=== PATIENT | male | born 1935 | race Caucasian/White ===

== ENCOUNTER → 2016-05-08 | Outpatient (CLI) | payer MEDICARE, OTHER ==
[~2016-05-08] MED LIST: ASPI325T47 OR; FENO160T8 PO; IOHEXOL 350 MG/ML 100ML IJ ONE; MULT-13 OR; MULTCAP7 OR
[2016-05-08 11:00] VITALS: BP 159/84
[2016-05-08 12:10] VITALS: BP 157/91
== END | disposition home or self-care (01) ==
LOC: Rad HDHVI 10:43
PROVIDERS: ATTEND Internal Medicine Cardiovascular Disease
DX: M79.604 Pain in right leg (principal); K57.30 Diverticulosis of large intestine without perforation or abscess without bleeding; I73.9 Peripheral vascular disease, unspecified; I10 Essential (primary) hypertension; I25.10 Atherosclerotic heart disease of native coronary artery without angina pectoris; R53.1 Weakness; Z86.79 Personal history of other diseases of the circulatory system
CPT/HCPCS: 75635; 96374; G0463; Q9967

== ENCOUNTER → 2016-07-31 | Outpatient (CLI) | payer MEDICARE, OTHER ==
[~2016-07-31] MED LIST changes: +CLOP75TA28 PO; +GABA300C8 PO; -IOHEXOL 350 MG/ML 100ML IJ ONE
[2016-07-31 09:00] VITALS: BP 158/83
[2016-07-31 09:30] VITALS: BP 149/82
[2016-07-31 12:12] LABS: Basophils # (auto) 0 uL; Basophils % (auto) 0.6 % (0.0-2.0); Eosinophils # (auto) 0.2 uL; Eosinophils % (auto) 3.5 % (0.0-7.0); Hematocrit 43.9 % (41.0-53.0); Hemoglobin 14.8 g/dL (13.5-17.5); Lymphocytes # (auto) 1.7 uL; Mean Corpuscular Hemoglobin 30.4 pg (28.0-32.0); Mean Corpuscular Hgb Conc. 33.7 g/dL (32.0-36.0); Mean Platelet Volume 8.6 fL (7.4-10.4); Monocytes # (auto) 0.5 uL; Monocytes % (auto) 8.2 % (0.0-12.0); Neutrophils # (auto) 3.7 uL; Neutrophils % (auto) 59.7 % (37.0-80.0); Platelet Count (auto) 300 10^3/uL (140-450); Red Cell Distribution Width 14.7 % (11.6-16.0); White Blood Cell 6.2 10^3/uL (4.4-10.8)
[2016-07-31 12:19] LABS: INR 1.08 (0.9-1.15); Partial Thromboplastin Time 24.2 sec (22.64-33.71); Prothrombin Time 11.8 sec (9.37-12.3)
[2016-07-31 12:31] LABS: BUN/Creatinine Ratio 16.5; Calcium 9.1 mg/dL (8.5-10.1); Potassium 3.9 mmol/L (3.5-5.1)
== END | disposition home or self-care (01) ==
LOC: Rad HDHVI 08:50
PROVIDERS: ATTEND Internal Medicine Cardiovascular Disease
DX: I10 Essential (primary) hypertension (principal); D64.9 Anemia, unspecified; R79.1 Abnormal coagulation profile; Z01.812 Encounter for preprocedural laboratory examination
CPT/HCPCS: 36415; 71020; 80048; 85025; 85610; 85730; 93005; G0463

== ENCOUNTER → 2016-09-10 | Outpatient (CLI) | payer MEDICARE, OTHER ==
[~2016-09-10] MED LIST changes: -GABA300C8 PO; +MULTCAP OR; -MULTCAP7 OR
== END | disposition home or self-care (01) ==
LOC: Rad HDHVI 13:59
PROVIDERS: ATTEND Internal Medicine Cardiovascular Disease
DX: I73.9 Peripheral vascular disease, unspecified (principal)
CPT/HCPCS: 93926

== ENCOUNTER → 2017-03-19 | Outpatient (CLI) | payer MEDICARE, OTHER ==
[~2017-03-19] MED LIST changes: +FENO5TAB PO
== END | disposition home or self-care (01) ==
LOC: Rad HDHVI 12:59
PROVIDERS: ATTEND Internal Medicine Cardiovascular Disease
DX: I70.8 Atherosclerosis of other arteries (principal); I73.9 Peripheral vascular disease, unspecified
CPT/HCPCS: 93926

== ENCOUNTER → 2017-05-12 | Outpatient (CLI) | payer MEDICARE, OTHER | END | disposition home or self-care (01) | LOC: Rad HDHVI 10:57 | PROVIDERS: ATTEND Internal Medicine Cardiovascular Disease | DX: N20.0 Calculus of kidney (principal); K44.9 Diaphragmatic hernia without obstruction or gangrene; N40.0 Benign prostatic hyperplasia without lower urinary tract symptoms; K57.30 Diverticulosis of large intestine without perforation or abscess without bleeding; Z87.442 Personal history of urinary calculi | CPT/HCPCS: 74176 ==

== ENCOUNTER → 2017-10-15 | Outpatient (CLI) | payer MEDICARE, OTHER ==
[~2017-10-15] MED LIST changes: +ASPI-123 OR; -ASPI325T47 OR
== END | disposition home or self-care (01) ==
LOC: Rad HDHVI 08:57
PROVIDERS: ATTEND Internal Medicine Cardiovascular Disease
DX: I73.9 Peripheral vascular disease, unspecified (principal); I77.1 Stricture of artery
CPT/HCPCS: 93926

== ENCOUNTER → 2017-10-20 | Outpatient (CLI) | payer MEDICARE, OTHER ==
[~2017-10-20] VITALS: Ht 162.6 cm; Wt 64.0 kg
== END | disposition home or self-care (01) ==
LOC: Rad HDHVI 08:26
PROVIDERS: ATTEND Internal Medicine Cardiovascular Disease
DX: I73.9 Peripheral vascular disease, unspecified (principal)
CPT/HCPCS: 78452; 93017; 96374; A9500

== ENCOUNTER 2018-02-10 11:48 | Emergency (ER) | payer MEDICARE, OTHER ==
[~2018-02-10] VITALS: Ht 162.6 cm; Wt 63.5 kg
[2018-02-10 13:05] LABS: Basophils # (auto) 0 uL; Basophils % (auto) 0.7 % (0.0-2.0); Eosinophils # (auto) 0.1 uL; Lymphocytes # (auto) 1.5 uL; Monocytes # (auto) 0.5 uL; Red Blood Cells 5.12 10^6/uL (4.5-5.90); Red Cell Distribution Width 19.2 % (11.8-14.3); White Blood Cell 5.2 10^3/uL (4.4-10.8)
[2018-02-10 13:07] LABS: Eosinophils % (auto) 2.5 % (0.0-7.0); Hematocrit 39.2 % (41.0-53.0); Hemoglobin 12.4 g/dL (13.5-17.5); Lymphocytes % (auto) 29.5 % (10.0-50.0); Mean Corpuscular Hemoglobin 24.2 pg (28.0-32.0); Mean Corpuscular Hgb Conc. 31.7 g/dL (32.0-36.0); Mean Corpuscular Volume 76.5 fL (80.0-100.0); Neutrophils % (auto) 57.3 % (37.0-80.0); Platelet Count (auto) 368 10^3/uL (140-450)
[2018-02-10 13:26] LABS: Albumin 3.9 g/dL (3.4-5.0); Anion Gap 2 (5-15); Blood Urea Nitrogen 17 mg/dL (7-18); Calcium 9.5 mg/dL (8.5-10.1); Carbon Dioxide 27 mmol/L (21-32); Chloride 108 mmol/L (98-107); Glucose 93 mg/dL (74-106); Magnesium 2.2 mg/dL (1.6-2.6); Potassium 4.1 mmol/L (3.5-5.1); Sodium 137 mmol/L (136-145)
[2018-02-10 13:33] LABS: Alanine Aminotransferase 32 U/L (16-61); Alkaline Phosphatase 61 U/L (45-117); Aspartate Aminotransferase 18 U/L (15-37); BUN/Creatinine Ratio 13.1; Bilirubin, Total 0.3 mg/dL (0.2-1.0); GFR African American 68 mL/min; GFR Non-African American 56 mL/min; Total Protein 7.5 g/dL (6.4-8.2)
[2018-02-10 16:22] VITALS: BP 165/96
== END 2018-02-10 16:21 | disposition home or self-care (01) ==
LOC: EDBD 11:48 → ER 11:52
DX: I16.0 Hypertensive urgency (principal); I48.91 Unspecified atrial fibrillation; Z86.73 Personal history of transient ischemic attack (TIA), and cerebral infarction without residual deficits; Z98.61 Coronary angioplasty status
CPT/HCPCS: 36415; 70450; 80053; 83735; 84484; 85025; 93005

== ENCOUNTER → 2018-03-10 | Outpatient (CLI) | payer MEDICARE, OTHER ==
[2018-03-10 13:52] VITALS: BP_SYST 135; BP_SYST 146; BP_DIAS 76; BP_DIAS 81
--- NOTE | 2018-03-10 13:52 | NUR ---
[facility] Tx# 2 First BP check on his Left arm is at 146/81 with a heart rate of 67bpm. Patient denies any symptoms or discomfort at this time. Medication have been taken this morning. 1st pleth at 1 min into Tx patient EECP pressure will increase up to 200 if tolerable. 2nd pleth at 32 min into Tx patient will like EECP pressure to be reduce at 160.Patient can't tolerate Tx pressure at 200.Patient denies any symptoms or discomfort at this time.Monitor shows a good ekg and waveforms with a heart rate of 68bpm. 3rd and final pleth at 53 min into Tx patient is tolerating Tx pressure at 160 well at this time.Monitor shows a good ekg and waveforms with a heart rate of 68bpm.Patient has 7 min left till his Tx is completed for the day. Last BP check on his Left arm is at 135/76 with a heart rate of 65bpm. Patient denies any symptoms or discomfort at this time. Patient will come in tomorrow for Tx# 3.
== END | disposition home or self-care (01) ==
LOC: CHF HDHVI 14:23
PROVIDERS: ATTEND Internal Medicine Cardiovascular Disease
DX: I25.118 Atherosclerotic heart disease of native coronary artery with other forms of angina pectoris (principal); I11.0 Hypertensive heart disease with heart failure; I50.23 Acute on chronic systolic (congestive) heart failure; I63.9 Cerebral infarction, unspecified; Z98.61 Coronary angioplasty status
CPT/HCPCS: G0166

== ENCOUNTER → 2018-03-11 | Outpatient (CLI) | payer MEDICARE, OTHER ==
[2018-03-11 13:33] VITALS: BP_SYST 147; BP_SYST 151; BP_DIAS 81; BP_DIAS 86
--- NOTE | 2018-03-11 13:33 | NUR ---
[facility] Tx# 3 First BP check on his Left arm is at 151/86 with a heart rate of 75bpm. Patient denies any symptoms or discomfort at this time. Medications have been taken before coming in to his Tx. 1st pleth at 1 min into Tx patient EECP pressure will increase up to 160 if tolerable patient can't tolerate Pressure higher than 160. 2nd pleth at 39 min into Tx patient is tolerating Tx pressure at 160 well at this time.Monitor shows a good ekg and waveforms with excellent pleth valves and a heart rate of 77bpm.Patient denies any symptoms or discomfort at this moment. 3rd and final pleth at 51 min into Tx patient is tolerating Tx pressure patient denies any symptoms or discomfort at this time.Monitor shows excellent pleth valves with a heart rate of 81bpm.Patient has 9 min left till his Tx is completed for the day. Last BP check on left arm is at 147/81 with a heart rate of 72bpm. Patient denies any symptoms or discomfort at this time.
== END | disposition home or self-care (01) ==
LOC: CHF HDHVI 14:28
PROVIDERS: ATTEND Internal Medicine Cardiovascular Disease
CPT/HCPCS: G0166

== ENCOUNTER → 2018-03-12 | Outpatient (CLI) | payer MEDICARE, OTHER ==
[2018-03-12 13:38] VITALS: BP_SYST 117; BP_SYST 154; BP_DIAS 78; BP_DIAS 85
--- NOTE | 2018-03-12 13:38 | NUR ---
[facility] Tx# 4 First BP check on his left arm is at 154/85 with a heart rate of 66bpm. Patient denies any chest pain,SOB,Fatigue or any other symptoms or discomfort at this time. 1st pleth at 1 min into Tx EECP pressure will be increase up to 160 if tolerable.Patient can't tolerate pressure higher that 160. 2nd pleth at 40 min into Tx.Patient is tolerating Tx pressure at 160 with no complaints or discomfort at this time.Monitor shows a good ekg and waveforms with a heart rate 63bpm with excellent pleth valves. 3rd and final pleth at 50 min into Tx.Monitor shows a good ekg and waveforms with a heart rate of 64bpm.Patient has 10 min left till his Tx is completed for the day. Last BP and HR check on his Left arm is at 117/78 with a heart rate of 66bpm. Patient denies any symptoms or discomfort at this time.
== END | disposition home or self-care (01) ==
LOC: CHF HDHVI 14:34
PROVIDERS: ATTEND Internal Medicine Cardiovascular Disease
DX: I25.118 Atherosclerotic heart disease of native coronary artery with other forms of angina pectoris (principal); I50.23 Acute on chronic systolic (congestive) heart failure; Z86.73 Personal history of transient ischemic attack (TIA), and cerebral infarction without residual deficits; Z98.61 Coronary angioplasty status
CPT/HCPCS: G0166

== ENCOUNTER → 2018-03-13 | Outpatient (CLI) | payer MEDICARE, OTHER ==
[2018-03-13 11:46] VITALS: BP_SYST 125; BP_SYST 137; BP_DIAS 66; BP_DIAS 85
--- NOTE | 2018-03-13 11:46 | NUR ---
[facility] Tx# 5 First BP check on his Left arm is at 137/85 with a heart rate of 65bpm. Arginext was taken before coming in to his Tx. Medications have been taken this morning before coming in to his Tx. Patient c/o dizziness had patient take a sit dizziness last approximately 1 min.Help patient get up to Tx bed no other changes at this time. 1st pleth at 1 min into Tx patient EECP pressure will increase if tolerable. 2nd pleth at 33 min into Tx patient is tolerating Tx pressure at 220 well at this time.Patient denies any symptoms or discomfort at this moment.Monitor shows a good ekg and waveforms with a heart rate of 68bpm. 3rd and final pleth at 50min into Tx patient is tolerating Tx pressure at 220 well at this time PATIENT denies any symptoms or discomfort at this time.Monitor shows a good ekg and waveforms with good pleth valves and a heart rate of 62bpm.Patient has 10 min left till his Tx is completed for the day. Last BP check on his Left arm is at 125/66 with a heart rate of 64bpm. Patient denies any symptoms or discomfort at this time.
== END | disposition home or self-care (01) ==
LOC: CHF HDHVI 11:46
PROVIDERS: ATTEND Internal Medicine Cardiovascular Disease
DX: I25.118 Atherosclerotic heart disease of native coronary artery with other forms of angina pectoris (principal); I50.23 Acute on chronic systolic (congestive) heart failure; Z98.61 Coronary angioplasty status; Z86.73 Personal history of transient ischemic attack (TIA), and cerebral infarction without residual deficits
CPT/HCPCS: G0166

== ENCOUNTER → 2018-03-16 | Outpatient (CLI) | payer MEDICARE, OTHER ==
[2018-03-16 10:48] VITALS: BP_SYST 123; BP_SYST 146; BP_DIAS 75; BP_DIAS 88
--- NOTE | 2018-03-16 10:48 | NUR ---
[facility] Tx# 6 First BP check on his Left arm is at 146/88 with a heart rate of 67bpm. Arginext was taken before coming in to his Tx. Medications have been taken this morning before coming in to his Tx. 1st pleth at 6 min into Tx patient EECP pressure will increase if tolerable. 2nd pleth at 32 min into Tx patient is tolerating Tx pressure at 240 well at this time.Patient denies any symptoms or discomfort at this moment.Monitor shows a good ekg and waveforms with a heart rate of 65bpm. 3rd and final pleth at 51 min into Tx patient is tolerating Tx pressure at 240 well at this time patient denies any symptoms or discomfort at this time.Monitor shows a good ekg and waveforms with good pleth valves and a heart rate of 67bpm.Patient has 9 min left till his Tx is completed for the day. Last BP check on his Left arm is at 123/75 with a heart rate of 64bpm. Patient denies any symptoms or discomfort at this time.
== END | disposition home or self-care (01) ==
LOC: CHF HDHVI 11:23
PROVIDERS: ATTEND Internal Medicine Cardiovascular Disease
DX: I25.118 Atherosclerotic heart disease of native coronary artery with other forms of angina pectoris (principal); I50.23 Acute on chronic systolic (congestive) heart failure; I63.9 Cerebral infarction, unspecified; Z98.61 Coronary angioplasty status
CPT/HCPCS: G0166

== ENCOUNTER → 2018-03-17 | Outpatient (CLI) | payer MEDICARE, OTHER ==
[2018-03-17 15:15] VITALS: BP 152/81
[2018-03-17 15:57] VITALS: BP 128/78
== END | disposition home or self-care (01) ==
LOC: CHF HDHVI 14:21
PROVIDERS: ATTEND Internal Medicine Cardiovascular Disease
DX: I25.118 Atherosclerotic heart disease of native coronary artery with other forms of angina pectoris (principal); I11.0 Hypertensive heart disease with heart failure; I50.23 Acute on chronic systolic (congestive) heart failure; Z98.61 Coronary angioplasty status; Z86.73 Personal history of transient ischemic attack (TIA), and cerebral infarction without residual deficits
CPT/HCPCS: G0166

== ENCOUNTER → 2018-03-19 | Outpatient (CLI) | payer MEDICARE, OTHER ==
[2018-03-19 14:30] VITALS: BP 132/80
[2018-03-19 15:30] VITALS: BP 134/90
--- NOTE | 2018-03-19 15:30 | NUR ---
PATIENT COMPLETED TREATMENT WITHOUT AN ADVERSE EVENT. PATIENT WILL RETURN TOMORROW FOR NEXT TREATMENT.
== END | disposition home or self-care (01) ==
LOC: CHF HDHVI 14:17
PROVIDERS: ATTEND Internal Medicine Cardiovascular Disease
DX: I25.118 Atherosclerotic heart disease of native coronary artery with other forms of angina pectoris (principal); I50.23 Acute on chronic systolic (congestive) heart failure; Z98.61 Coronary angioplasty status; Z86.73 Personal history of transient ischemic attack (TIA), and cerebral infarction without residual deficits
CPT/HCPCS: G0166

== ENCOUNTER → 2018-03-20 | Outpatient (CLI) | payer MEDICARE, OTHER ==
[2018-03-20 11:57] VITALS: BP_SYST 139; BP_SYST 146; BP_DIAS 73; BP_DIAS 83
--- NOTE | 2018-03-20 11:57 | NUR ---
[facility] Tx# 9 First BP check on his Left arm is at 139/83 with a heart rate 70bpm. Patient denies any symptoms or discomfort at this time. Patient took his Arginext before coming in this morning. Upper cuff off during Tx. 1st pleth at 1 min into Tx patient EECP pressure will increase if tolerable. 2nd pleth at 32 min into Tx patient is tolerating Tx pressure at 280 well at this time .Monitor shows a good ekg and waveforms with a heart rate of 66bpm.Patient denies any symptoms or discomfort at this time. 3rd and final pleth at 57 min into Tx patient is tolerating Tx pressure upper cuff was turn on great pleth valves with a heart rate of 68bpm.Patient has 3 min left till his Tx is completed for the day. Last BP and HR check on left arm is at 146/73 with a heart rate of 64bpm. Patient denies any symptoms or discomfort at this time.
== END | disposition home or self-care (01) ==
LOC: CHF HDHVI 11:47
PROVIDERS: ATTEND Internal Medicine Cardiovascular Disease
DX: I25.118 Atherosclerotic heart disease of native coronary artery with other forms of angina pectoris (principal); I50.23 Acute on chronic systolic (congestive) heart failure; I63.9 Cerebral infarction, unspecified; Z98.61 Coronary angioplasty status
CPT/HCPCS: G0166

== ENCOUNTER → 2018-03-24 | Outpatient (CLI) | payer MEDICARE, OTHER ==
[2018-03-24 14:57] VITALS: BP_SYST 128; BP_SYST 147; BP_DIAS 70; BP_DIAS 71
--- NOTE | 2018-03-24 14:57 | NUR ---
[facility] Tx# 10 First BP check on his Left arm is at 147/70 with a heart rate of 68bpm. Patient denies any symptoms or discomfort at this time. Arginext was taken before coming in to his Tx. Per patient medications have been taken. 1st pleth at 1 min into Tx patient EECP pressure will increase if tolerable. Monitor shows Arrhythmias no HR recorded at this time. Patient denies any symptoms or discomfort at this time. Will keep monitoring Patient through his Tx if any other changes occur. 2nd pleth at 27 min into Tx.Patient is tolerating Tx pressure at 280 well.Patient denies any symptoms or discomfort at this time.Monitor show good pleth valves with a heart rate of 60bpm. 3rd and final pleth at 55 min into Tx patient is tolerating Tx pressure at 280 well with no complaints or discomfort at this time.Monitor shows good pleth valves with a heart rate of 65bpm. Patient has 5 min left till his Tx is completed for the day. Last BP check on his Left arm is at 128/71 with a heart rate of 64bpm. Patient denies any symptoms or discomfort at this time.
== END | disposition home or self-care (01) ==
LOC: CHF HDHVI 14:26
PROVIDERS: ATTEND Internal Medicine Cardiovascular Disease
DX: I25.118 Atherosclerotic heart disease of native coronary artery with other forms of angina pectoris (principal); I50.23 Acute on chronic systolic (congestive) heart failure; I63.9 Cerebral infarction, unspecified; Z98.61 Coronary angioplasty status
CPT/HCPCS: G0166

== ENCOUNTER → 2018-03-25 | Outpatient (CLI) | payer MEDICARE, OTHER ==
--- NOTE | 2018-03-25 13:50 | NUR ---
[facility] Tx# 11 First BP check on his Left arm is at 140/89 with a heart rate of 69bpm. Patient denies any symptoms or discomfort at this time. Arginext was taken before coming in to his Tx. 1st pleth at 1 min into Tx EECP pressure will be increase if tolerable. Restroom break at 18 min into Tx. 2nd pleth at 45 min into Tx patient is tolerating Tx pressure at 280 well.Patient denies any symptoms or discomfort at this time. Monitor shows excellent pleth valves with a heart rate of 62bpm. 3rd and final pleth at 54 min into Tx patient is doing well at this time.Monitor shows a good ekg and waveforms with excellent pleth valves and a heart rate of 58bpm. Last BP check on his Left arm is at 140/89 with a heart rate of 58bpm. Patient denies any symptoms or discomfort at this time.
[2018-03-25 13:52] VITALS: BP 140/89
== END | disposition home or self-care (01) ==
LOC: Rad HDHVI 13:19
PROVIDERS: ATTEND Internal Medicine Cardiovascular Disease
DX: I25.118 Atherosclerotic heart disease of native coronary artery with other forms of angina pectoris (principal); I50.23 Acute on chronic systolic (congestive) heart failure; I63.9 Cerebral infarction, unspecified; Z98.61 Coronary angioplasty status
CPT/HCPCS: G0166

== ENCOUNTER → 2018-03-26 | Outpatient (CLI) | payer MEDICARE, OTHER ==
[2018-03-26 13:45] VITALS: BP_SYST 124; BP_SYST 125; BP_DIAS 78; BP_DIAS 87
--- NOTE | 2018-03-26 13:45 | NUR ---
[facility] Tx# 12 First BP check on his Left arm is at 125/78 with a heart rate of 70bpm. Patient denies any symptoms or discomfort at this time. Arginext was taken before coming in to his Tx. 1st pleth at 3 min into Tx EECP pressure will be increase if tolerable. 2nd pleth at 36 min into Tx patient is tolerating Tx pressure at 280 well.Patient denies any symptoms or discomfort at this time. Monitor shows excellent pleth valves with a heart rate of 74bpm. Restroom break at 44 min into Tx. 3rd and final pleth at 48 min into Tx patient is doing well at this time.Monitor shows a good ekg and waveforms with good pleth valves with a heart rate of 75bpm. Last BP check on his Left arm is at 124/87 with a heart rate of 69bpm. Patient denies any symptoms or discomfort at this time.
== END | disposition home or self-care (01) ==
LOC: Rad HDHVI 13:19
PROVIDERS: ATTEND Internal Medicine Cardiovascular Disease
DX: I25.118 Atherosclerotic heart disease of native coronary artery with other forms of angina pectoris (principal); I50.23 Acute on chronic systolic (congestive) heart failure; I63.9 Cerebral infarction, unspecified; Z98.61 Coronary angioplasty status
CPT/HCPCS: G0166

== ENCOUNTER → 2018-03-27 | Outpatient (CLI) | payer MEDICARE, OTHER ==
--- NOTE | 2018-03-27 12:00 | NUR ---
[facility] Tx# 13 First BP check on his Left arm is at 145/76 with a heart rate of 61bpm. Patient denies any symptoms or discomfort at this time. Arginext was taken before coming in to his Tx. 1st pleth at 4 min into Tx patient EECP pressure will slowly increase if tolerable. 2nd pleth at 24 min into Tx patient is tolerating Tx pressure at 280 well.Patient denies any chest pain,SOB,Fatigue at this time. Monitor shows excellent pleth valves with a heart rate of 67bpm. 3rd and final pleth at 54 min into Tx.Patient is doing well at this time.Monitor shows excellent pleth valves with a heart rate of 71bpm. Patient has 6 min left till Tx is completed for the day. Last BP check on his Right arm is at 153/86 with a heart rate of 64bpm. Patient denies any symptoms or discomfort at this time.
[2018-03-27 12:05] VITALS: BP_SYST 145; BP_SYST 153; BP_DIAS 76; BP_DIAS 86
== END | disposition home or self-care (01) ==
LOC: Rad HDHVI 11:50
PROVIDERS: ATTEND Internal Medicine Cardiovascular Disease
DX: I25.118 Atherosclerotic heart disease of native coronary artery with other forms of angina pectoris (principal); I11.0 Hypertensive heart disease with heart failure; I50.23 Acute on chronic systolic (congestive) heart failure; I63.9 Cerebral infarction, unspecified; Z98.61 Coronary angioplasty status
CPT/HCPCS: G0166

== ENCOUNTER → 2018-03-30 | Outpatient (CLI) | payer MEDICARE, OTHER ==
[2018-03-30 13:46] VITALS: BP_SYST 136; BP_SYST 141; BP_DIAS 79; BP_DIAS 84
--- NOTE | 2018-03-30 13:46 | NUR ---
[facility] Tx# 14 First BP check on his Left arm is at 141/84 with a heart rate of 66bpm. Patient denies any symptoms or discomfort at this time. Arginext was taken before coming in to his Tx. 1st pleth at 1 min into Tx patient EECP pressure will slowly increase if tolerable. 2nd pleth at 34 min into Tx patient is tolerating Tx pressure at 280 well.Patient denies any chest pain,SOB,Fatigue at this time. Monitor shows excellent pleth valves with a heart rate of 67bpm. 3rd and final pleth at 56 min into Tx.Patient is doing well at this time.Monitor shows good pleth valves with a heart rate of 68bpm.Patient has 4 min left till Tx is completed for the day. Last BP check on his Right arm is at 136/79 with a heart rate of 65bpm. Patient denies any symptoms or discomfort at this time.
== END | disposition home or self-care (01) ==
LOC: CHF HDHVI 13:27
PROVIDERS: ATTEND Internal Medicine Cardiovascular Disease
DX: I25.118 Atherosclerotic heart disease of native coronary artery with other forms of angina pectoris (principal); I50.23 Acute on chronic systolic (congestive) heart failure; I63.9 Cerebral infarction, unspecified; Z98.61 Coronary angioplasty status
CPT/HCPCS: G0166

== ENCOUNTER → 2018-03-31 | Outpatient (CLI) | payer MEDICARE, OTHER ==
[2018-03-31 13:52] VITALS: BP_SYST 124; BP_SYST 139; BP_DIAS 78; BP_DIAS 83
--- NOTE | 2018-03-31 13:52 | NUR ---
[facility] Tx# 15 First BP check on his Left arm is at 139/83 with a heart rate of 67bpm. Patient denies any symptoms or discomfort at this time. Arginext was taken before coming in to his Tx. 1st pleth at 1 min into Tx patient EECP pressure will slowly increase if tolerable. 2nd pleth at 35 min into Tx patient is tolerating Tx pressure at 280 well.Patient denies any symptoms or discomfort at this time. Monitor shows good pleth valves with a heart rate of 79bpm. 3rd and final pleth at 55 min into Tx.Patient is doing well at this time.Monitor shows good pleth valves with a heart rate of 79bpm.Patient has 5 min left till Tx is completed for the day. Last BP check on his Right arm is at 124/78 with a heart rate of 77bpm. Patient denies any symptoms or discomfort at this time.
== END | disposition home or self-care (01) ==
LOC: Rad HDHVI 13:34
PROVIDERS: ATTEND Internal Medicine Cardiovascular Disease
DX: I25.118 Atherosclerotic heart disease of native coronary artery with other forms of angina pectoris (principal); I50.23 Acute on chronic systolic (congestive) heart failure; I63.9 Cerebral infarction, unspecified; Z98.61 Coronary angioplasty status
CPT/HCPCS: G0166

== ENCOUNTER → 2018-04-01 | Outpatient (CLI) | payer MEDICARE, OTHER ==
[2018-04-01 13:45] VITALS: BP_SYST 134; BP_SYST 138; BP_DIAS 72; BP_DIAS 78
--- NOTE | 2018-04-01 13:45 | NUR ---
[facility] Tx# 16 First BP check on his Left arm is at 134/72 with a heart rate of 66bpm.Patient EECP pressure will increase up to 280 if tolerable.Arginext was taken before coming in to his Tx.Medications are the same no new changes at this time.Monitor shows a good ekg and waveforms with good pleth valves.Restroom break at 22 min into his Tx.Patient is tolerating Tx pressure at 280 well with no complaints or discomfort at this time. Patient has completed Tx for the day. Last BP check on his Left arm is at 138/78 with a heart rate of 75bpm. Patient denies any symptoms or discomfort at this time.
== END | disposition home or self-care (01) ==
LOC: CHF HDHVI 13:26
PROVIDERS: ATTEND Internal Medicine Cardiovascular Disease
DX: I25.118 Atherosclerotic heart disease of native coronary artery with other forms of angina pectoris (principal); I11.0 Hypertensive heart disease with heart failure; I50.23 Acute on chronic systolic (congestive) heart failure; I63.9 Cerebral infarction, unspecified; Z98.61 Coronary angioplasty status
CPT/HCPCS: G0166

== ENCOUNTER → 2018-04-02 | Outpatient (CLI) | payer MEDICARE, OTHER ==
[2018-04-02 13:42] VITALS: BP_SYST 131; BP_SYST 148; BP_DIAS 77; BP_DIAS 81
--- NOTE | 2018-04-02 13:42 | NUR ---
[facility] Tx# 17 First BP check on his left arm is at 148/77 with a heart rate of 68bpm.Patient stated he felt dizzy in the waiting area sat down and it went away.Dizziness last approximately a couple of min.At this time patient feel well we will continue to monitor patient through his Tx if any other changes occur. Arginext was taken before coming in to his Tx. Medications are the same no new changes. EECP pressure has been increase patient is tolerating Tx pressure at 280 well with no complaints or discomfort at this time. Monitor shows good pleth valves. Patient has completed Tx for the day. Last BP check on his Left arm is at 131/81 with a heart rate of 67bpm. Patient denies any symptoms or discomfort at this time.
== END | disposition home or self-care (01) ==
LOC: CHF HDHVI 13:41
PROVIDERS: ATTEND Internal Medicine Cardiovascular Disease
DX: I25.118 Atherosclerotic heart disease of native coronary artery with other forms of angina pectoris (principal); I63.9 Cerebral infarction, unspecified; I50.23 Acute on chronic systolic (congestive) heart failure; Z98.61 Coronary angioplasty status
CPT/HCPCS: G0166

== ENCOUNTER → 2018-04-03 | Outpatient (CLI) | payer MEDICARE, OTHER ==
[2018-04-03 11:59] VITALS: BP_SYST 140; BP_SYST 153; BP_DIAS 76; BP_DIAS 83
--- NOTE | 2018-04-03 11:59 | NUR ---
[facility] Tx# 18 First BP check on his left arm is at 140/76 with a heart rate of 60bpm. Arginext was taken before coming in to his Tx. Medications are the same no new changes. EECP pressure has been increase patient is tolerating Tx pressure at 280 well with no complaints or discomfort at this time. Monitor show a good ekg and waveforms with excellent pleth valves. Patient has completed Tx for the day. Last BP check on his Left arm is at 153/83 with a heart rate of 69bpm. Patient denies any symptoms or discomfort at this time.
== END | disposition home or self-care (01) ==
LOC: CHF HDHVI 11:47
PROVIDERS: ATTEND Internal Medicine Cardiovascular Disease
DX: I25.118 Atherosclerotic heart disease of native coronary artery with other forms of angina pectoris (principal); I11.0 Hypertensive heart disease with heart failure; I50.23 Acute on chronic systolic (congestive) heart failure; I63.9 Cerebral infarction, unspecified; Z98.61 Coronary angioplasty status
CPT/HCPCS: G0166

== ENCOUNTER → 2018-04-06 | Outpatient (CLI) | payer MEDICARE, OTHER ==
[2018-04-06 13:45] VITALS: BP_SYST 139; BP_SYST 140; BP_DIAS 78; BP_DIAS 86
--- NOTE | 2018-04-06 13:45 | NUR ---
[facility] Tx# 19 First BP check on his Left arm is at 139/78 with a heart rate of 66bpm.Patient denies any symptoms or discomfort at this time.Arginext was taken before coming in to his Tx.Medications are the same no new changes. 1st pleth at 19 min into Tx EECP pressure is slowly increasing.Monitor shows excellent pleth valves with a heart rate of 70bpm. 2nd pleth at 39 min into Tx patient is tolerating Tx pressure at 280 well with no discomfort at this time.Monitor shows excellent pleth valves with a heart rate of 71bpm. At 40 min into Tx patient needs a restroom break. 3rd and final pleth at 58 min into Tx monitor shows excellent pleth valves with a heart rate of 71bpm. Patient has 2 min left till his Tx is completed for the day. Last BP and HR check on his Left arm is at 140/86 with a heart rate of 65bpm. Patient denies any symptoms or discomfort at this time.
== END | disposition home or self-care (01) ==
LOC: CHF HDHVI 13:25
PROVIDERS: ATTEND Internal Medicine Cardiovascular Disease
DX: I25.118 Atherosclerotic heart disease of native coronary artery with other forms of angina pectoris (principal); I11.0 Hypertensive heart disease with heart failure; I50.23 Acute on chronic systolic (congestive) heart failure; I63.9 Cerebral infarction, unspecified; Z98.61 Coronary angioplasty status
CPT/HCPCS: G0166

== ENCOUNTER → 2018-04-07 | Outpatient (CLI) | payer MEDICARE, OTHER ==
[2018-04-07 13:52] VITALS: BP_SYST 143; BP_SYST 144; BP_DIAS 81; BP_DIAS 87
--- NOTE | 2018-04-07 13:52 | NUR ---
[facility] Tx# 20 First BP check on his Left arm is at 143/81 with a heart rate of 69bpm.Patient denies any symptoms or discomfort at this time.Arginext was taken before coming in to his Tx.Medications are the same no new changes. 1st pleth at 1 min into Tx EECP pressure is slowly increasing. 2nd pleth at 30 min into Tx patient is tolerating Tx pressure at 280 well with no discomfort at this time.Monitor shows excellent pleth valves with a heart rate of 67bpm. At 31 min into Tx patient needs a restroom break. 3rd and final pleth at 52 min into Tx monitor shows excellent pleth valves with a heart rate of 65bpm. Patient has 8 min left till his Tx is completed for the day. Last BP and HR check on his Left arm is at 144/87 with a heart rate of 67bpm. Patient denies any symptoms or discomfort at this time.
== END | disposition home or self-care (01) ==
LOC: CHF HDHVI 13:35
PROVIDERS: ATTEND Internal Medicine Cardiovascular Disease
DX: I11.0 Hypertensive heart disease with heart failure (principal); I50.23 Acute on chronic systolic (congestive) heart failure; I25.118 Atherosclerotic heart disease of native coronary artery with other forms of angina pectoris; I63.9 Cerebral infarction, unspecified; Z98.61 Coronary angioplasty status
CPT/HCPCS: G0166

== ENCOUNTER → 2018-04-09 | Outpatient (CLI) | payer MEDICARE, OTHER ==
--- NOTE | 2018-04-10 10:45 | NUR ---
[facility] Tx# 21 FOR DOS 04/09/2018 First BP check on Left arm is at 144/84 with a heart rate of 68bpm. Patient states before coming in to his Tx.Pt was unable to walk straight patient felt Dizzy.Per patient he was able to make it to a nearby chair.Dizziness last approximately sec per patient. Patient took his Arginext before coming in to his Tx. 1st pleth at 1 min into Tx patient EECP pressure will be increase if tolerable. 2nd pleth at 27 min into Tx.Patient is tolerating Tx pressure at 280 well with no discomfort at this time.Monitor shows a good ekg and waveforms with good pleth valves and a heart rate of 69bpm. Restroom break at 1525 3rd and final pleth at 53 min into Tx patient is doing well at this time.Patient denies any symptoms or discomfort at this moment.Monitor shows a good ekg and waveforms with excellent pleth valves and a heart rate of 72bpm.Patient has 7 min left till his Tx is completed for the day. Last BP check on right arm is at 147/86 with a heart rate of 66bpm. Patient denies any symptoms or discomfort at this time.
[2018-04-10 11:40] VITALS: BP_SYST 144; BP_SYST 147; BP_DIAS 84; BP_DIAS 86
== END | disposition home or self-care (01) ==
LOC: CHF HDHVI 14:28
PROVIDERS: ATTEND Internal Medicine Cardiovascular Disease
DX: I25.118 Atherosclerotic heart disease of native coronary artery with other forms of angina pectoris (principal); I11.0 Hypertensive heart disease with heart failure; I50.23 Acute on chronic systolic (congestive) heart failure; I63.9 Cerebral infarction, unspecified; Z98.61 Coronary angioplasty status
CPT/HCPCS: G0166

== ENCOUNTER → 2018-04-10 | Outpatient (CLI) | payer MEDICARE, OTHER ==
[2018-04-10 12:27] VITALS: BP_SYST 146; BP_SYST 149; BP_DIAS 73
--- NOTE | 2018-04-10 12:27 | NUR ---
[facility] Tx# 22 First BP check on his left arm is at 149/73 with a heart rate of 63bpm Patient denies any symptoms or discomfort at this time. Arginext was taken before coming in to his Tx. 1st pleth at 3 min into Tx EECP pressure will be increase if tolerable. 2nd pleth at 30 min into Tx.Patient is tolerating Tx pressure at 280 well with no discomfort at this time.Monitor shows a good ekg and waveforms with excellent pleth valves and a heart rate of 73bpm. 3rd and final pleth at 51 min into Tx patient is tolerating Tx pressure at 280 monitor shows excellent pleth valves with a heart rate of 74bpm.Patient has 9 min left till his Tx is completed for the day. Last BP 146/73 with a heart rate of 69bpm. Patient denies any symptoms or discomfort at this time.
== END | disposition home or self-care (01) ==
LOC: CHF HDHVI 11:53
PROVIDERS: ATTEND Internal Medicine Cardiovascular Disease
DX: I25.118 Atherosclerotic heart disease of native coronary artery with other forms of angina pectoris (principal); I50.23 Acute on chronic systolic (congestive) heart failure; I63.9 Cerebral infarction, unspecified; Z98.61 Coronary angioplasty status
CPT/HCPCS: G0166

== ENCOUNTER → 2018-04-13 | Outpatient (CLI) | payer MEDICARE, OTHER ==
--- NOTE | 2018-04-14 09:28 | NUR ---
[facility] Tx# 23 Notes for DOS of 04/13/2018 First BP check on his Left arm is at 145/79 with a heart rate of 64bpm. Patient denies any symptoms or discomfort at this time. Arginext was taken before coming in to his Tx. 1st pleth at 1 min into Tx patient EECP pressure will increase if tolerable. 2nd pleth at 36 min into Tx patient is tolerating Tx pressure at 280 well with no discomfort at this time. Monitor shows a good ekg and waveforms with a heart rate of 62bpm. 3rd and final pleth at 52 min into Tx patient is doing well at this time.Monitor shows good pleth valves with a heart rate of 67bpm.Patient has 8 min left till his Tx is completed for the day. Last BP check on his Left arm is at 118/70 with a heart rate of 63bpm. Patient denies any symptoms or discomfort at this time.
[2018-04-14 09:33] VITALS: BP 145/79
[2018-04-14 09:34] VITALS: BP 118/70
== END | disposition home or self-care (01) ==
LOC: CHF HDHVI 14:28
PROVIDERS: ATTEND Internal Medicine Cardiovascular Disease
DX: I25.118 Atherosclerotic heart disease of native coronary artery with other forms of angina pectoris (principal); I50.23 Acute on chronic systolic (congestive) heart failure; I63.9 Cerebral infarction, unspecified; Z98.61 Coronary angioplasty status
CPT/HCPCS: G0166

== ENCOUNTER → 2018-04-14 | Outpatient (CLI) | payer MEDICARE, OTHER ==
[2018-04-14 11:29] VITALS: BP_SYST 137; BP_SYST 143; BP_DIAS 79; BP_DIAS 89
--- NOTE | 2018-04-14 11:29 | NUR ---
[facility] Tx# 24 First BP check on his Left arm is at 143/89 with a heart rate of 79bpm. Patient denies any symptoms or discomfort at this time. Arginext was taken before coming in to his Tx. 1st pleth at 1 min into Tx patient EECP pressure will increase if tolerable. 2nd pleth at 33 min into Tx patient is tolerating Tx pressure at 280 well with no discomfort at this time. Monitor shows a good ekg and waveforms with excellent pleth valves and a heart rate of 65bpm. 3rd and final pleth at 50 min into Tx patient is doing well at this time.Monitor shows excellent pleth valves with a heart rate of 65bpm.Patient has 10 min left till his Tx is completed for the day. Patient denies any symptoms or discomfort at this time.
== END | disposition home or self-care (01) ==
LOC: CHF HDHVI 11:06
PROVIDERS: ATTEND Internal Medicine Cardiovascular Disease
DX: I50.23 Acute on chronic systolic (congestive) heart failure (principal); I25.118 Atherosclerotic heart disease of native coronary artery with other forms of angina pectoris; I63.9 Cerebral infarction, unspecified; Z98.61 Coronary angioplasty status
CPT/HCPCS: G0166

== ENCOUNTER → 2018-04-15 | Outpatient (CLI) | payer MEDICARE, OTHER ==
[2018-04-15 14:40] VITALS: BP_SYST 124; BP_SYST 140; BP_DIAS 71; BP_DIAS 76
--- NOTE | 2018-04-15 14:40 | NUR ---
[facility] Tx# 25 First BP check on his Left arm is at with a heart rate of 79bpm. Patient denies any symptoms or discomfort at this time. Arginext was taken before coming in to his Tx. 1st pleth at 2 min into Tx patient EECP pressure will increase if tolerable. 2nd pleth at 30 min into Tx patient is tolerating Tx pressure at 280 well with no discomfort at this time. Monitor shows a good ekg and waveforms with good pleth valves.Heart rate is at 66bpm. 3rd and final pleth at 50 min into Tx patient is doing well at this time.Monitor shows good pleth valves with a heart rate of 67bpm.Patient has 10 min left till his Tx is completed for the day. Last BP check on his Left arm is at 124/76 with a heart rate of 64bpm. Patient denies any symptoms or discomfort at this time.
== END | disposition home or self-care (01) ==
LOC: CHF HDHVI 14:34
PROVIDERS: ATTEND Internal Medicine Cardiovascular Disease
DX: I25.118 Atherosclerotic heart disease of native coronary artery with other forms of angina pectoris (principal); I63.9 Cerebral infarction, unspecified; I50.23 Acute on chronic systolic (congestive) heart failure; Z98.61 Coronary angioplasty status
CPT/HCPCS: G0166

== ENCOUNTER → 2018-04-16 | Outpatient (CLI) | payer MEDICARE, OTHER ==
[2018-04-16 14:48] VITALS: BP_SYST 138; BP_SYST 148; BP_DIAS 71; BP_DIAS 77
--- NOTE | 2018-04-16 15:48 | NUR ---
[facility] Tx# 26 First BP check on his Left arm is at 148/71 with a heart rate of 66bpm. Patient denies any symptoms or discomfort at this time. Arginext was taken before coming in to his Tx. 1st pleth at 1 min into Tx patient EECP pressure will increase if tolerable. 2nd pleth at 22 min into Tx patient is tolerating Tx pressure at 280 well with no discomfort at this time. Monitor shows a good ekg and waveforms with excellent pleth valves.Heart rate is at 76bpm. 3rd and final pleth at 40 min into Tx patient is doing well at this time.Monitor shows a good ekg and waveforms with a heart rate of 75bpm and excellent pleth valves. Patient has 20 min left till his Tx is completed for the day. Last BP check on his Left arm is at 138/77 with a heart rate of 73bpm. Patient denies any symptoms or discomfort at this time.
== END | disposition home or self-care (01) ==
LOC: CHF HDHVI 14:31
PROVIDERS: ATTEND Internal Medicine Cardiovascular Disease
DX: I25.118 Atherosclerotic heart disease of native coronary artery with other forms of angina pectoris (principal); I11.0 Hypertensive heart disease with heart failure; I50.23 Acute on chronic systolic (congestive) heart failure; I63.9 Cerebral infarction, unspecified; Z98.61 Coronary angioplasty status
CPT/HCPCS: G0166

== ENCOUNTER → 2018-04-17 | Outpatient (CLI) | payer MEDICARE, OTHER ==
[2018-04-17 12:06] VITALS: BP_SYST 140; BP_SYST 151; BP_DIAS 77; BP_DIAS 79
--- NOTE | 2018-04-17 12:56 | NUR ---
[facility] Tx# 27 First BP check on his Left arm is at 151/79 with a heart rate of 62bpm. Patient denies any symptoms or discomfort at this time. Arginext was taken before coming in to his Tx. Patient states he felt dizzy when he was grocery shopping and at home.Patient was able to make it to the nearest chair.Dizziness last approximately sec.Will notify M.D. We will continue to monitor patient through his Tx if any other changes occur. 1st pleth at 3 min into Tx patient EECP pressure will increase if tolerable. 2nd pleth at 33 min into Tx patient is tolerating Tx pressure at 280 well with no discomfort at this time. Monitor shows a good ekg and waveforms with good pleth valves.Heart rate is at 62bpm. 3rd and final pleth at 53 min into Tx patient is doing well at this time.Monitor shows a good ekg and waveforms with a heart rate of 66bpm with excellent pleth valves. Patient has 7 min left till his Tx is completed for the day. Last BP check on his Left arm is at 140/77 with a heart rate of 63bpm. Patient denies any symptoms or discomfort at this time.
== END | disposition home or self-care (01) ==
LOC: Rad HDHVI 12:02
PROVIDERS: ATTEND Internal Medicine Cardiovascular Disease
DX: I25.118 Atherosclerotic heart disease of native coronary artery with other forms of angina pectoris (principal); I11.0 Hypertensive heart disease with heart failure; I50.23 Acute on chronic systolic (congestive) heart failure; I63.9 Cerebral infarction, unspecified; Z98.61 Coronary angioplasty status
CPT/HCPCS: G0166

== ENCOUNTER → 2018-04-20 | Outpatient (CLI) | payer MEDICARE, OTHER ==
[2018-04-20 13:48] VITALS: BP_SYST 146; BP_SYST 155; BP_DIAS 81; BP_DIAS 84
--- NOTE | 2018-04-20 13:48 | NUR ---
[facility] Tx# 28 First BP check on his Left arm is at 155/84 with a heart rate of 62bpm. Patient denies any symptoms or discomfort at this time. Arginext was taken before coming in to his Tx. 1st pleth at 1 min into Tx patient EECP pressure will increase if tolerable. 2nd pleth at 43 min into Tx patient is tolerating Tx pressure at 280 well with no discomfort at this time. Monitor shows a good ekg and waveforms with good pleth valves.Heart rate is at 56bpm. 3rd and final pleth at 56 min into Tx patient is doing well at this time.Monitor shows a good ekg and waveforms with good pleth valves and a heart rate of 58bpm. Patient has 7 min left till his Tx is completed for the day. Last BP check on his Left arm is at 146/81 with a heart rate of 67bpm. Patient denies any symptoms or discomfort at this time.
== END | disposition home or self-care (01) ==
LOC: CHF HDHVI 13:36
PROVIDERS: ATTEND Internal Medicine Cardiovascular Disease
DX: I25.118 Atherosclerotic heart disease of native coronary artery with other forms of angina pectoris (principal); I11.0 Hypertensive heart disease with heart failure; I50.23 Acute on chronic systolic (congestive) heart failure; I63.9 Cerebral infarction, unspecified; Z98.61 Coronary angioplasty status
CPT/HCPCS: G0166

== ENCOUNTER → 2018-04-21 | Outpatient (CLI) | payer MEDICARE, OTHER ==
[2018-04-21 13:38] VITALS: BP_SYST 137; BP_SYST 151; BP_DIAS 84; BP_DIAS 87
--- NOTE | 2018-04-21 13:38 | NUR ---
[facility] Tx# 29 First BP check on R arm is at 151/87 with a heart rate of 61bpm.Arginext was taken before coming in to his Tx.Monitor shows a good ekg and waveforms with excellent pleth valves.Patient denies any symptoms or discomfort at this time.Patient will come in tomorrow for Tx # 30.Last BP check on Right arm is at 137/84 WITH A HEART RATE OF 67BPM.
== END | disposition home or self-care (01) ==
LOC: CHF HDHVI 13:30
PROVIDERS: ATTEND Internal Medicine Cardiovascular Disease
DX: I25.118 Atherosclerotic heart disease of native coronary artery with other forms of angina pectoris (principal); I11.0 Hypertensive heart disease with heart failure; I50.23 Acute on chronic systolic (congestive) heart failure; I63.9 Cerebral infarction, unspecified; Z98.61 Coronary angioplasty status
CPT/HCPCS: G0166

== ENCOUNTER → 2018-04-24 | Outpatient (CLI) | payer MEDICARE, OTHER ==
[2018-04-24 11:58] VITALS: BP_SYST 140; BP_SYST 152; BP_DIAS 81; BP_DIAS 83
--- NOTE | 2018-04-24 11:58 | NUR ---
[facility] Tx# 30 First BP check on L arm is at 152/81 with a heart rate of 68bpm. Patient denies any symptoms or discomfort at this time. Arginext was taken before coming in to his Tx. Monitor shows a good ekg and waveforms with excellent pleth valves.Patient denies any symptoms or discomfort at this time.Patient is tolerating Tx pressure at 280 well.We will continue to monitor patient through his Tx . Last BP check on left arm is at 140/83 with a heart rate of 61bpm. Patient denies any symptoms or discomfort at this time.
== END | disposition home or self-care (01) ==
LOC: CHF HDHVI 11:49
PROVIDERS: ATTEND Internal Medicine Cardiovascular Disease
DX: I25.118 Atherosclerotic heart disease of native coronary artery with other forms of angina pectoris (principal); I50.23 Acute on chronic systolic (congestive) heart failure; I63.9 Cerebral infarction, unspecified; Z98.61 Coronary angioplasty status
CPT/HCPCS: G0166

== ENCOUNTER → 2018-04-27 | Outpatient (CLI) | payer MEDICARE, OTHER ==
[2018-04-27 13:41] VITALS: BP_SYST 135; BP_SYST 149; BP_DIAS 73; BP_DIAS 82
--- NOTE | 2018-04-27 13:41 | NUR ---
[facility] Tx# 31 First BP check on L arm is at 149/73 with a heart rate of 63bpm. Patient denies any symptoms or discomfort at this time. Arginext was taken before coming in to his Tx. 1st pleth at 1 min into Tx patient EECP pressure will increase if tolerable. 2nd pleth at 40 min into Tx patient is tolerating Tx pressure at 280 well with no discomfort at this time.Monitor shows good pleth valves with a heart rate of 66bpm. At 42 min into Tx patient needs a restroom break. 3rd and final pleth at 58 min into Tx patient is is doing well with his Tx monitor shows a good ekg and waveforms with good pleth valves and a heart rate of 67bpm.Patient has 2 min left till his Tx is completed for the day. Last BP check on left arm is at 135/82 with a heart rate of 67bpm. Patient denies any symptoms or discomfort at this time.
== END | disposition home or self-care (01) ==
LOC: CHF HDHVI 13:28
PROVIDERS: ATTEND Internal Medicine Cardiovascular Disease
DX: I25.118 Atherosclerotic heart disease of native coronary artery with other forms of angina pectoris (principal); I11.0 Hypertensive heart disease with heart failure; I50.23 Acute on chronic systolic (congestive) heart failure; I63.9 Cerebral infarction, unspecified; Z98.61 Coronary angioplasty status
CPT/HCPCS: G0166

== ENCOUNTER → 2018-04-28 | Outpatient (CLI) | payer MEDICARE, OTHER ==
[2018-04-28 13:34] VITALS: BP_SYST 144; BP_SYST 145; BP_DIAS 73; BP_DIAS 79
--- NOTE | 2018-04-28 13:34 | NUR ---
EECP Tx# 32 First BP check on his Left arm is at 145/79 with a heart rate of 62bpm. Per patient he states he felt dizzy while walking yesterday before coming in to his Tx, also patient felt dizzy later on in the evening he was sitting.Per patient he sat down and waited to feel better.Per patient dizziness last approximately seconds. At this time patient denies felling Dizzy. We will continue to monitor patient through his Tx if any changes occur. Arginext was taken before coming in to his Tx. 1st pleth at 1 min into Tx patient EECP pressure will be increase if tolerable. 2nd pleth at 38 min into Tx patient is tolerating Tx pressure at 280 well with no discomfort at this time. Monitor shows a good ekg and waveforms and with a heart rate of 67bpm. at 42 min into Tx patient will like EECP pressure reduce.Patient can't tolerate 280 at this moment. Restroom break at 45 min into Tx. 3rd and final pleth at 48 min into Tx patient is tolerating Tx pressure at 220 well with no discomfort at this time.Monitor shows excellent pleth valves with a heart rate of 67bpm. Patient has 12 min left till his Tx is completed for the day. Last BP and HR check on his Left arm is at 144/73 with a heart rate of 69bpm. Patient denies any symptoms or discomfort at this time.
== END | disposition home or self-care (01) ==
LOC: CHF HDHVI 13:41
PROVIDERS: ATTEND Internal Medicine Cardiovascular Disease
DX: I11.0 Hypertensive heart disease with heart failure (principal); I50.23 Acute on chronic systolic (congestive) heart failure; I25.118 Atherosclerotic heart disease of native coronary artery with other forms of angina pectoris; I63.9 Cerebral infarction, unspecified; I48.91 Unspecified atrial fibrillation; E78.5 Hyperlipidemia, unspecified; K21.9 Gastro-esophageal reflux disease without esophagitis; Z98.61 Coronary angioplasty status
CPT/HCPCS: G0166

== ENCOUNTER → 2018-04-29 | Outpatient (CLI) | payer MEDICARE, OTHER ==
[2018-04-29 13:37] VITALS: BP_SYST 140; BP_SYST 143; BP_DIAS 72; BP_DIAS 81
--- NOTE | 2018-04-29 13:37 | NUR ---
EECP Tx# 33 First BP and HR check on Left arm is at 140/72 with a heart rate of 62bpm. Patient Denies any symptoms or discomfort at this time. Arginext was taken before coming in to his Tx. Medications are the same no new changes at this time. 1st pleth at 1 min into Tx EECP pressure will slowly increase if tolerable. 2nd pleth at 43 min into Tx patient is tolerating Tx pressure at 280 with no complaints or discomfort at this time.Monitor shows a good ekg and waveforms with good pleth valves and a heart rate of 71bpm. At 49 min into Tx patient needs to use the restroom. 3rd and final pleth at 51 min into Tx patient can't tolerate EECP pressure at 280 at this time will reduce pressure.Patient has 9 min left till his Tx is completed for the day. Patient is tolerating Tx pressure at 160 well at this time .Patient denies any symptoms or discomfort at this moment. Last BP AND HR CHECK ON LEFT ARM IS AT 143/81 WITH A HEART RATE OF 63BPM.
== END | disposition home or self-care (01) ==
LOC: CHF HDHVI 13:38
PROVIDERS: ATTEND Internal Medicine Cardiovascular Disease
DX: I25.118 Atherosclerotic heart disease of native coronary artery with other forms of angina pectoris (principal); I11.0 Hypertensive heart disease with heart failure; I50.23 Acute on chronic systolic (congestive) heart failure; I63.9 Cerebral infarction, unspecified; Z98.61 Coronary angioplasty status
CPT/HCPCS: G0166

== ENCOUNTER → 2018-04-30 | Outpatient (CLI) | payer MEDICARE, OTHER ==
[~2018-04-30] MED LIST changes: +diphenhdrAMINE HCL 25 MG CAP PO ONE
--- NOTE | 2018-04-30 13:15 | NUR ---
PT REPORTS ITCHING AND DISCOMFORT. NOTED TO HAVE 3 VERY REDDENED AREAS EXACTLY CORRELATING TO SIZE OF PATCHES USED FOR EECP MONITORING. SKIN NOT BROKEN BUT PINK AND RED WITH DISTINCT EDGES. REQUESTED BENADRYL. Clinic Provider Clinic Provider into see pt with new orders received and carried out. ONGOING CARE PROVIDED BY [facility]ED[facility] IN EECP . MEDICATION ADMINISTRATION BENADRYL 25 MG PO X 1 AT 1315
[2018-04-30 13:30] VITALS: BP_SYST 126; BP_SYST 135; BP_DIAS 84
--- NOTE | 2018-04-30 13:30 | NUR ---
EECP Tx# 34 First BP check on his Left arm is at 126/84 with a heart rate of 69bpm. Patient came in and reports itching and redness with discomfort on 3 different areas where electrodes have been placed for his EECP Tx's. Notify Jory HURD. Juanl was provided to the patient.Will continue to monitor patient through his Tx if any changes occur. Arginext was taken before coming in to his Tx. EECP pressure will be increase if tolerable. Patient is tolerating Tx pressure at 280 well with no discomfort at this time. Monitor shows a good ekg and waveforms with good pleth valves. Patient denies any chest pain,SOB,Fatigue at this time. LAST BP AND HR TAKEN ON HIS LEFT ARM IS AT 135/84 WITH A HEART RATE OF 67BPM. PATIENT WILL COME IN TOMORROW FOR Tx# 35.
== END | disposition home or self-care (01) ==
LOC: CHF HDHVI 13:25
PROVIDERS: ATTEND Internal Medicine Cardiovascular Disease
DX: I25.118 Atherosclerotic heart disease of native coronary artery with other forms of angina pectoris (principal); I11.0 Hypertensive heart disease with heart failure; I50.23 Acute on chronic systolic (congestive) heart failure; I63.9 Cerebral infarction, unspecified; Z98.61 Coronary angioplasty status; Z79.01 Long term (current) use of anticoagulants
CPT/HCPCS: G0166; G0463

== ENCOUNTER → 2018-05-01 | Outpatient (CLI) | payer MEDICARE, OTHER ==
[~2018-05-01] MED LIST changes: -diphenhdrAMINE HCL 25 MG CAP PO ONE
[2018-05-01 12:05] VITALS: BP_SYST 145; BP_SYST 153; BP_DIAS 79; BP_DIAS 84
--- NOTE | 2018-05-01 12:05 | NUR ---
EECP Tx# 35 First BP check on his Left arm is at 145/79 with a heart rate of 67bpm. Patient denies any chest pain,SOB,Fatigue or any other symptoms or discomfort at this time. Medications are the same no new changes at this time. Arginext was taken before coming in to his Tx. This is patient's Last day of EECP.EECP pressure will be increase if tolerable. 2nd pleth at 28 min into Tx patient is tolerating Tx pressure at 280 well with no discomfort.Monitor shows a good ekg and waveforms with excellent pleth valves and a heart rate of 64bpm. 3rd and final pleth at 47 min into Tx patient is doing well at this time.Monitor shows a good ekg and waveforms with excellent pleth valves and a heart rate of 62bpm.Patient has 13 min left till his Tx is completed for the day. At this time patient has completed his 35 days of EECP. Patient states that EECP has been beneficial for him. Last BP and HR is at 153/84 with a heart rate of 65bpm. CC: No Angina or Dizziness Patient released in stable condition instructed to F/U with MD as schedule.
== END | disposition home or self-care (01) ==
LOC: Rad HDHVI 10:47
PROVIDERS: ATTEND Internal Medicine Cardiovascular Disease
DX: I25.118 Atherosclerotic heart disease of native coronary artery with other forms of angina pectoris (principal); I50.23 Acute on chronic systolic (congestive) heart failure; I63.9 Cerebral infarction, unspecified; Z98.61 Coronary angioplasty status
CPT/HCPCS: G0166

== ENCOUNTER → 2018-09-22 | Outpatient (CLI) | payer MEDICARE, OTHER | END | disposition home or self-care (01) | LOC: Rad HDHVI 08:03 | PROVIDERS: ATTEND Internal Medicine Cardiovascular Disease | DX: I08.2 Rheumatic disorders of both aortic and tricuspid valves (principal); I48.91 Unspecified atrial fibrillation; R42 Dizziness and giddiness; I10 Essential (primary) hypertension | CPT/HCPCS: 93306 ==

== ENCOUNTER → 2018-09-29 | Outpatient (CLI) | payer MEDICARE, OTHER ==
[~2018-09-29] VITALS: Ht 162.6 cm; Wt 64.0 kg
[2018-09-29 12:03] LABS: Basophils # (auto) 0 uL; Basophils % (auto) 0.6 % (0.0-2.0); Eosinophils # (auto) 0.2 uL; Eosinophils % (auto) 2.5 % (0.0-7.0); Hematocrit 45.5 % (41.0-53.0); Hemoglobin 15.5 g/dL (13.5-17.5); Lymphocytes # (auto) 1.8 uL; Lymphocytes % (auto) 29.1 % (10.0-50.0); Mean Corpuscular Hemoglobin 29.4 pg (28.0-32.0); Mean Corpuscular Volume 86.6 fL (80.0-100.0); Monocytes # (auto) 0.6 uL; Monocytes % (auto) 9.1 % (0.0-12.0); Neutrophils # (auto) 3.7 uL; Neutrophils % (auto) 58.7 % (37.0-80.0); Nucleated Red Blood Cells % 0.1 %; Platelet Count (auto) 302 10^3/uL (140-450); Red Blood Cells 5.26 10^6/uL (4.5-5.90); Red Cell Distribution Width 17.6 % (11.8-14.3); Urine Blood Negative /uL (Negative); Urine Specific Gravity 1.019 (1.001-1.035); White Blood Cell 6.3 10^3/uL (4.4-10.8)
[2018-09-29 13:03] LABS: Potassium 4.2 mmol/L (3.5-5.1)
[2018-09-29 13:06] LABS: Free T4 (Free Thyroxine) 1.12 ng/dL (0.89-1.76); Prostate Specific Antigen 2.64 ng/mL (0.0-4.0)
[2018-09-29 13:11] LABS: BUN/Creatinine Ratio 15.5; Bilirubin, Total 0.4 mg/dL (0.2-1.0); Total Protein 7.9 g/dL (6.4-8.2)
== END | disposition home or self-care (01) ==
LOC: Rad HDHVI 08:04
PROVIDERS: ATTEND Internal Medicine Cardiovascular Disease
DX: E03.9 Hypothyroidism, unspecified (principal); C61 Malignant neoplasm of prostate; E29.1 Testicular hypofunction; N39.0 Urinary tract infection, site not specified; D51.9 Vitamin B12 deficiency anemia, unspecified; K90.9 Intestinal malabsorption, unspecified; I11.0 Hypertensive heart disease with heart failure; I50.23 Acute on chronic systolic (congestive) heart failure; Z79.899 Other long term (current) drug therapy
CPT/HCPCS: 36415; 78452; 80053; 80061; 81003; 82306; 82607; 83036; 84153; 84403; 84439; 84443; 85025; 87086; 93017; 96374; A9500

== ENCOUNTER → 2019-10-25 | Outpatient (CLI) | payer MEDICARE, OTHER ==
[~2019-10-25] MED LIST changes: +MULT-830 OR; -MULTCAP OR
[2019-10-25 16:13] LABS: Urine Blood Negative /uL (Negative); Urine Specific Gravity 1.012 (1.001-1.035)
[2019-10-25 16:17] LABS: Calcium 9.3 mg/dL (8.5-10.1)
[2019-10-25 16:18] LABS: Basophils # (auto) 0 10 ^3/uL (0-0.2); Basophils % (auto) 0.3 % (0.0-2.0); Eosinophils # (auto) 0.2 10 ^3/uL (0-0.8); Eosinophils % (auto) 2.1 % (0.0-7.0); Hematocrit 48.6 % (41.0-53.0); Hemoglobin 16.4 g/dL (13.5-17.5); Lymphocytes # (auto) 1.7 10 ^3/uL (0.4-5.4); Lymphocytes % (auto) 22.1 % (10.0-50.0); Mean Corpuscular Hemoglobin 30.5 pg (28.0-32.0); Mean Corpuscular Hgb Conc. 33.8 g/dL (32.0-36.0); Mean Corpuscular Volume 90.4 fL (80.0-100.0); Monocytes # (auto) 0.8 10 ^3/uL (0-1.3); Monocytes % (auto) 10.5 % (0.0-12.0); Neutrophils # (auto) 5.1 10 ^3/uL (1.6-8.6); Platelet Count (auto) 251 10^3/uL (140-450); Red Blood Cells 5.37 10^6/uL (4.5-5.90); Red Cell Distribution Width 15.9 % (11.8-14.3); White Blood Cell 7.9 10^3/uL (4.4-10.8)
[2019-10-25 16:23] LABS: Albumin 3.6 g/dL (3.4-5.0); Bilirubin, Direct 0.2 mg/dL (0-0.2); Bilirubin, Total 0.5 mg/dL (0.2-1.0); Total Protein 7.3 g/dL (6.4-8.2)
== END | disposition home or self-care (01) ==
LOC: LAB 11:07
PROVIDERS: ATTEND Internal Medicine Cardiovascular Disease
DX: E03.9 Hypothyroidism, unspecified (principal); K90.9 Intestinal malabsorption, unspecified; C61 Malignant neoplasm of prostate; E29.1 Testicular hypofunction; N39.0 Urinary tract infection, site not specified; D51.9 Vitamin B12 deficiency anemia, unspecified; Z79.899 Other long term (current) drug therapy; Z00.00 Encounter for general adult medical examination without abnormal findings
CPT/HCPCS: 36415; 80048; 80061; 80076; 81003; 82306; 83036; 84153; 84403; 84443; 85025

== ENCOUNTER → 2019-11-04 | Outpatient (CLI) | payer MEDICARE, OTHER | END | disposition home or self-care (01) | LOC: Rad HDHVI 09:10 | PROVIDERS: ATTEND Internal Medicine Cardiovascular Disease | DX: I08.3 Combined rheumatic disorders of mitral, aortic and tricuspid valves (principal); I25.10 Atherosclerotic heart disease of native coronary artery without angina pectoris; I63.9 Cerebral infarction, unspecified; E78.00 Pure hypercholesterolemia, unspecified | CPT/HCPCS: 93306 ==

== ENCOUNTER → 2019-11-11 | Outpatient (CLI) | payer MEDICARE, OTHER ==
[~2019-11-11] VITALS: Ht 162.6 cm; Wt 63.5 kg
== END | disposition home or self-care (01) ==
LOC: Rad HDHVI 12:47
PROVIDERS: ATTEND Internal Medicine Cardiovascular Disease
DX: I50.23 Acute on chronic systolic (congestive) heart failure (principal); I25.10 Atherosclerotic heart disease of native coronary artery without angina pectoris; I10 Essential (primary) hypertension; E78.00 Pure hypercholesterolemia, unspecified
CPT/HCPCS: 78452; 93017; 96374; A9500

== ENCOUNTER → 2019-11-29 | Outpatient (CLI) | payer MEDICARE, OTHER ==
[2019-11-29 16:06] LABS: Urine Blood Negative /uL (Negative); Urine Specific Gravity 1.016 (1.001-1.035)
== END | disposition home or self-care (01) ==
LOC: LAB 11:32
PROVIDERS: ATTEND Internal Medicine Cardiovascular Disease
DX: N39.0 Urinary tract infection, site not specified (principal)
CPT/HCPCS: 81003; 87086

== ENCOUNTER → 2019-12-13 | Outpatient (CLI) | payer MEDICARE, OTHER ==
[2019-12-13 16:52] VITALS: BP 134/80
--- NOTE | 2019-12-13 16:53 | NUR ---
Signature Attestation Statement: I EMELYN GREER performed this procedure EECP on this patient. Addendum: 12/13/19 at 1654 by EMELYN GREER [email or web address] Amended: Links added.
--- NOTE | 2019-12-13 16:53 | NUR ---
Signature Attestation Statement: I EMELYN GREER performed this procedure EECP on this patient. Addendum: 12/13/19 at 1653 by EMELYN GREER [email or web address] Amended: Links added.
[2019-12-13 16:59] VITALS: BP 136/78
--- NOTE | 2019-12-13 16:59 | NUR ---
Signature Attestation Statement: I EMELYN GREER performed this procedure EECP on this patient. Addendum: 12/13/19 at 1659 by EMELYN GREER [email or web address] Amended: Links added.
--- NOTE | 2019-12-13 17:00 | NUR ---
Signature Attestation Statement: I EMELYN GREER performed this procedure EECP on this patient. Addendum: 12/13/19 at 1700 by EMELYN GREER [email or web address] Amended: Links added.
== END | disposition home or self-care (01) ==
LOC: CHF HDHVI 13:57
PROVIDERS: ATTEND Internal Medicine Cardiovascular Disease
DX: I25.118 Atherosclerotic heart disease of native coronary artery with other forms of angina pectoris (principal); I50.23 Acute on chronic systolic (congestive) heart failure; I82.409 Acute embolism and thrombosis of unspecified deep veins of unspecified lower extremity; I63.9 Cerebral infarction, unspecified; I48.91 Unspecified atrial fibrillation; J44.9 Chronic obstructive pulmonary disease, unspecified
CPT/HCPCS: G0166

== ENCOUNTER → 2019-12-14 | Outpatient (CLI) | payer MEDICARE, OTHER ==
[2019-12-14 16:15] VITALS: BP 153/88
--- NOTE | 2019-12-14 16:16 | NUR ---
Signature Attestation Statement: I EMELYN GREER performed this procedure EECP on this patient. Addendum: 12/14/19 at 1617 by EMELYN GREER [email or web address] Amended: Links added.
--- NOTE | 2019-12-14 16:16 | NUR ---
Signature Attestation Statement: I EMELYN GREER performed this procedure EECP on this patient. Addendum: 12/14/19 at 1616 by EMELYN GREER [email or web address] Amended: Links added.
--- NOTE | 2019-12-14 16:18 | NUR ---
Signature Attestation Statement: I EMELYN GREER performed this procedure EECP on this patient. Addendum: 12/14/19 at 1618 by EMELYN GREER [email or web address] Amended: Links added.
[2019-12-14 16:23] VITALS: BP 127/81
--- NOTE | 2019-12-14 16:23 | NUR ---
Signature Attestation Statement: I EMELYN GREER performed this procedure EECP on this patient. Addendum: 12/14/19 at 1623 by EMELYN GREER [email or web address] Amended: Links added.
--- NOTE | 2019-12-14 16:24 | NUR ---
Signature Attestation Statement: I EMELYN GREER performed this procedure EECP on this patient. Addendum: 12/14/19 at 1624 by EMELYN GREER [email or web address] Amended: Links added.
== END | disposition home or self-care (01) ==
LOC: CHF HDHVI 13:40
PROVIDERS: ATTEND Internal Medicine Cardiovascular Disease
DX: I25.118 Atherosclerotic heart disease of native coronary artery with other forms of angina pectoris (principal); I50.23 Acute on chronic systolic (congestive) heart failure; I82.409 Acute embolism and thrombosis of unspecified deep veins of unspecified lower extremity; I48.91 Unspecified atrial fibrillation; I63.9 Cerebral infarction, unspecified; E78.5 Hyperlipidemia, unspecified; J44.9 Chronic obstructive pulmonary disease, unspecified
CPT/HCPCS: G0166

== ENCOUNTER → 2019-12-15 | Outpatient (CLI) | payer MEDICARE, OTHER ==
[2019-12-15 16:38] VITALS: BP 143/80
--- NOTE | 2019-12-15 16:39 | NUR ---
Signature Attestation Statement: I EMELYN GREER performed this procedure EECP on this patient. Addendum: 12/15/19 at 1639 by EMELYN GREER [email or web address] Amended: Links added.
--- NOTE | 2019-12-15 16:40 | NUR ---
Signature Attestation Statement: I EMELYN GREER performed this procedure EECP on this patient. Addendum: 12/15/19 at 1640 by EMELYN GREER [email or web address] Amended: Links added.
--- NOTE | 2019-12-15 16:41 | NUR ---
Signature Attestation Statement: I EMELYN GREER performed this procedure EECP on this patient. Addendum: 12/15/19 at 1641 by EMELYN GREER [email or web address] Amended: Links added.
--- NOTE | 2019-12-15 16:46 | NUR ---
Signature Attestation Statement: I EMELYN GREER performed this procedure EECP on this patient. Addendum: 12/15/19 at 1647 by EMELYN GREER [email or web address] Amended: Links added.
[2019-12-15 16:47] VITALS: BP 144/79
--- NOTE | 2019-12-15 16:47 | NUR ---
Signature Attestation Statement: I EMELYN GREER performed this procedure EECP on this patient. Addendum: 12/15/19 at 1648 by EMELYN GREER [email or web address] Amended: Links added.
== END | disposition home or self-care (01) ==
LOC: CHF HDHVI 14:11
PROVIDERS: ATTEND Internal Medicine Cardiovascular Disease
DX: I25.118 Atherosclerotic heart disease of native coronary artery with other forms of angina pectoris (principal); I50.23 Acute on chronic systolic (congestive) heart failure; I63.9 Cerebral infarction, unspecified; I82.409 Acute embolism and thrombosis of unspecified deep veins of unspecified lower extremity; I48.91 Unspecified atrial fibrillation; J44.9 Chronic obstructive pulmonary disease, unspecified
CPT/HCPCS: G0166

== ENCOUNTER → 2019-12-17 | Outpatient (CLI) | payer MEDICARE, OTHER ==
[2019-12-17 14:41] VITALS: BP 156/75
[2019-12-17 15:22] VITALS: BP 160/80
== END | disposition home or self-care (01) ==
LOC: CHF HDHVI 14:04
PROVIDERS: ATTEND Internal Medicine Cardiovascular Disease
DX: I25.118 Atherosclerotic heart disease of native coronary artery with other forms of angina pectoris (principal); I50.23 Acute on chronic systolic (congestive) heart failure; J44.9 Chronic obstructive pulmonary disease, unspecified; I48.91 Unspecified atrial fibrillation; I82.409 Acute embolism and thrombosis of unspecified deep veins of unspecified lower extremity; I63.9 Cerebral infarction, unspecified
CPT/HCPCS: G0166

== ENCOUNTER → 2019-12-20 | Outpatient (CLI) | payer MEDICARE, OTHER ==
[2019-12-20 14:42] VITALS: BP 144/82
[2019-12-20 15:28] VITALS: BP 152/90
== END | disposition home or self-care (01) ==
LOC: CHF HDHVI 14:15
PROVIDERS: ATTEND Internal Medicine Cardiovascular Disease
DX: I25.118 Atherosclerotic heart disease of native coronary artery with other forms of angina pectoris (principal); I50.23 Acute on chronic systolic (congestive) heart failure; I48.91 Unspecified atrial fibrillation; J44.9 Chronic obstructive pulmonary disease, unspecified; I82.409 Acute embolism and thrombosis of unspecified deep veins of unspecified lower extremity; I63.9 Cerebral infarction, unspecified; R06.02 Shortness of breath; Z98.61 Coronary angioplasty status
CPT/HCPCS: G0166

== ENCOUNTER → 2019-12-21 | Outpatient (CLI) | payer MEDICARE, OTHER ==
[2019-12-21 14:52] VITALS: BP 142/76
[2019-12-21 15:23] VITALS: BP 136/79
== END | disposition home or self-care (01) ==
LOC: CHF HDHVI 14:18
PROVIDERS: ATTEND Internal Medicine Cardiovascular Disease
DX: I25.118 Atherosclerotic heart disease of native coronary artery with other forms of angina pectoris (principal); I50.23 Acute on chronic systolic (congestive) heart failure; I48.91 Unspecified atrial fibrillation; J44.9 Chronic obstructive pulmonary disease, unspecified; I63.9 Cerebral infarction, unspecified; I82.409 Acute embolism and thrombosis of unspecified deep veins of unspecified lower extremity
CPT/HCPCS: G0166

== ENCOUNTER → 2019-12-22 | Outpatient (CLI) | payer MEDICARE, OTHER ==
[2019-12-22 14:40] VITALS: BP 153/85
[2019-12-22 15:16] VITALS: BP 154/86
== END | disposition home or self-care (01) ==
LOC: CHF HDHVI 14:10
PROVIDERS: ATTEND Internal Medicine Cardiovascular Disease
DX: I25.118 Atherosclerotic heart disease of native coronary artery with other forms of angina pectoris (principal); I50.23 Acute on chronic systolic (congestive) heart failure; I48.91 Unspecified atrial fibrillation; J44.9 Chronic obstructive pulmonary disease, unspecified; I63.9 Cerebral infarction, unspecified; I82.409 Acute embolism and thrombosis of unspecified deep veins of unspecified lower extremity
CPT/HCPCS: G0166

== ENCOUNTER → 2019-12-23 | Outpatient (CLI) | payer MEDICARE, OTHER ==
[2019-12-23 14:45] VITALS: BP 152/86
[2019-12-23 15:24] VITALS: BP 160/94
== END | disposition home or self-care (01) ==
LOC: CHF HDHVI 14:09
PROVIDERS: ATTEND Internal Medicine Cardiovascular Disease
DX: I25.118 Atherosclerotic heart disease of native coronary artery with other forms of angina pectoris (principal); I50.23 Acute on chronic systolic (congestive) heart failure; J44.9 Chronic obstructive pulmonary disease, unspecified; I48.91 Unspecified atrial fibrillation; I63.9 Cerebral infarction, unspecified; I82.409 Acute embolism and thrombosis of unspecified deep veins of unspecified lower extremity
CPT/HCPCS: G0166

== ENCOUNTER → 2019-12-24 | Outpatient (CLI) | payer MEDICARE, OTHER ==
[2019-12-24 14:40] VITALS: BP 154/83
--- NOTE | 2019-12-24 14:41 | NUR ---
Signature Attestation Statement: I EMELYN GREER performed this procedure EECP on this patient. Addendum: 12/24/19 at 1441 by EMELYN GREER [email or web address] Amended: Links added.
--- NOTE | 2019-12-24 14:42 | NUR ---
Signature Attestation Statement: I EMELYN GREER performed this procedure EECP on this patient. Addendum: 12/24/19 at 1442 by EMELYN GREER [email or web address] Amended: Links added.
[2019-12-24 15:15] VITALS: BP 149/91
--- NOTE | 2019-12-24 15:15 | NUR ---
Signature Attestation Statement: I EMELYN GREER performed this procedure EECP on this patient. Addendum: 12/24/19 at 1515 by EMELYN GREER [email or web address] Amended: Links added.
--- NOTE | 2019-12-24 15:26 | NUR ---
Signature Attestation Statement: I EMELYN GREER performed this procedure EECP on this patient. Addendum: 12/24/19 at 1527 by EMELYN GREER [email or web address] Amended: Links added.
== END | disposition home or self-care (01) ==
LOC: CHF HDHVI 14:10
PROVIDERS: ATTEND Internal Medicine Cardiovascular Disease
DX: I25.118 Atherosclerotic heart disease of native coronary artery with other forms of angina pectoris (principal); I50.23 Acute on chronic systolic (congestive) heart failure; I48.91 Unspecified atrial fibrillation; J44.9 Chronic obstructive pulmonary disease, unspecified; I82.409 Acute embolism and thrombosis of unspecified deep veins of unspecified lower extremity; I63.9 Cerebral infarction, unspecified
CPT/HCPCS: G0166

== ENCOUNTER → 2019-12-27 | Outpatient (CLI) | payer MEDICARE, OTHER ==
[2019-12-27 14:50] VITALS: BP 155/73
--- NOTE | 2019-12-27 14:50 | NUR ---
Signature Attestation Statement: I EMELYN GREER performed this procedure EECP on this patient. Addendum: 12/27/19 at 1450 by EMELYN GREER [email or web address] Amended: Links added.
--- NOTE | 2019-12-27 14:51 | NUR ---
Signature Attestation Statement: I EMELYN GREER performed this procedure EECP on this patient. Addendum: 12/27/19 at 1451 by EMELYN GREER [email or web address] Amended: Links added.
--- NOTE | 2019-12-27 14:51 | NUR ---
Signature Attestation Statement: I EMELYN GREER performed this procedure EECP on this patient. Addendum: 12/27/19 at 1452 by EMELYN GREER [email or web address] Amended: Links added.
--- NOTE | 2019-12-27 15:25 | NUR ---
Signature Attestation Statement: I EMELYN GREER performed this procedure EECP on this patient. Addendum: 12/27/19 at 1526 by EMELYN GREER [email or web address] Amended: Links added.
[2019-12-27 15:26] VITALS: BP 132/78
--- NOTE | 2019-12-27 15:38 | NUR ---
Signature Attestation Statement: I EMELYN GREER performed this procedure EECP on this patient. Addendum: 12/27/19 at 1539 by EMELYN GREER [email or web address] Amended: Links added.
== END | disposition home or self-care (01) ==
LOC: CHF HDHVI 14:13
PROVIDERS: ATTEND Internal Medicine Cardiovascular Disease
DX: I25.118 Atherosclerotic heart disease of native coronary artery with other forms of angina pectoris (principal); I50.23 Acute on chronic systolic (congestive) heart failure; J44.9 Chronic obstructive pulmonary disease, unspecified; I48.91 Unspecified atrial fibrillation; I82.409 Acute embolism and thrombosis of unspecified deep veins of unspecified lower extremity; I63.9 Cerebral infarction, unspecified
CPT/HCPCS: G0166

== ENCOUNTER → 2019-12-28 | Outpatient (CLI) | payer MEDICARE, OTHER ==
[2019-12-28 15:13] VITALS: BP 150/82
--- NOTE | 2019-12-28 15:14 | NUR ---
Signature Attestation Statement: I EMELYN GREER performed this procedure EECP on this patient. Addendum: 12/28/19 at 1514 by EMELYN GREER [email or web address] Amended: Links added.
--- NOTE | 2019-12-28 15:15 | NUR ---
Signature Attestation Statement: I EMELYN GREER performed this procedure EECP on this patient. Addendum: 12/28/19 at 1515 by EMELYN GREER [email or web address] Amended: Links added.
--- NOTE | 2019-12-28 15:27 | NUR ---
Signature Attestation Statement: I EMELYN GREER performed this procedure EECP on this patient. Addendum: 12/28/19 at 1528 by EMELYN GREER [email or web address] Amended: Links added.
[2019-12-28 15:28] VITALS: BP 110/77
--- NOTE | 2019-12-28 15:36 | NUR ---
Signature Attestation Statement: I EMELYN GREER performed this procedure EECP on this patient. Addendum: 12/28/19 at 1536 by EMELYN GREER [email or web address] Amended: Links added.
== END | disposition home or self-care (01) ==
LOC: CHF HDHVI 14:12
PROVIDERS: ATTEND Internal Medicine Cardiovascular Disease
DX: I25.118 Atherosclerotic heart disease of native coronary artery with other forms of angina pectoris (principal); I50.23 Acute on chronic systolic (congestive) heart failure; J44.9 Chronic obstructive pulmonary disease, unspecified; I48.91 Unspecified atrial fibrillation; I82.409 Acute embolism and thrombosis of unspecified deep veins of unspecified lower extremity; I63.9 Cerebral infarction, unspecified
CPT/HCPCS: G0166

== ENCOUNTER → 2019-12-29 | Outpatient (CLI) | payer MEDICARE, OTHER ==
[2019-12-29 14:51] VITALS: BP 142/78
[2019-12-29 15:36] VITALS: BP 131/78
== END | disposition home or self-care (01) ==
LOC: CHF HDHVI 14:13
PROVIDERS: ATTEND Internal Medicine Cardiovascular Disease
DX: I25.118 Atherosclerotic heart disease of native coronary artery with other forms of angina pectoris (principal); I50.23 Acute on chronic systolic (congestive) heart failure; I48.91 Unspecified atrial fibrillation; J44.9 Chronic obstructive pulmonary disease, unspecified; I82.409 Acute embolism and thrombosis of unspecified deep veins of unspecified lower extremity; I63.9 Cerebral infarction, unspecified; R06.02 Shortness of breath; Z98.61 Coronary angioplasty status
CPT/HCPCS: G0166

== ENCOUNTER → 2019-12-30 | Outpatient (CLI) | payer MEDICARE, OTHER ==
[2019-12-30 14:51] VITALS: BP 155/84
[2019-12-30 15:24] VITALS: BP 142/79
== END | disposition home or self-care (01) ==
LOC: CHF HDHVI 14:11
PROVIDERS: ATTEND Internal Medicine Cardiovascular Disease
DX: I25.118 Atherosclerotic heart disease of native coronary artery with other forms of angina pectoris (principal); I11.0 Hypertensive heart disease with heart failure; I50.23 Acute on chronic systolic (congestive) heart failure; I63.9 Cerebral infarction, unspecified; I82.409 Acute embolism and thrombosis of unspecified deep veins of unspecified lower extremity; I48.91 Unspecified atrial fibrillation; J44.9 Chronic obstructive pulmonary disease, unspecified
CPT/HCPCS: G0166

== ENCOUNTER → 2020-01-03 | Outpatient (CLI) | payer MEDICARE, OTHER ==
[2020-01-03 14:51] VITALS: BP 144/78
--- NOTE | 2020-01-03 14:51 | NUR ---
Signature Attestation Statement: I EMELYN GREER performed this procedure EECP on this patient. Addendum: 01/03/20 at 1452 by EMELYN GREER [email or web address] Amended: Links added.
--- NOTE | 2020-01-03 14:52 | NUR ---
Signature Attestation Statement: I EMELYN RGEER performed this procedure EECP on this patient. Addendum: 01/03/20 at 1453 by EMELYN GREER [email or web address] Amended: Links added.
[2020-01-03 15:30] VITALS: BP 127/70
--- NOTE | 2020-01-03 15:30 | NUR ---
Signature Attestation Statement: I EMELYN GREER performed this procedure EECP on this patient. Addendum: 01/03/20 at 1530 by EMELYN GREER [email or web address] Amended: Links added.
--- NOTE | 2020-01-03 15:38 | NUR ---
Signature Attestation Statement: I EMELYN GREER performed this procedure EECP on this patient. Addendum: 01/03/20 at 1538 by EMELYN GREER [email or web address] Amended: Links added.
== END | disposition home or self-care (01) ==
LOC: CHF HDHVI 14:12
PROVIDERS: ATTEND Internal Medicine Cardiovascular Disease
DX: I25.118 Atherosclerotic heart disease of native coronary artery with other forms of angina pectoris (principal); I50.23 Acute on chronic systolic (congestive) heart failure; I48.91 Unspecified atrial fibrillation; J44.9 Chronic obstructive pulmonary disease, unspecified; I82.409 Acute embolism and thrombosis of unspecified deep veins of unspecified lower extremity; I63.9 Cerebral infarction, unspecified
CPT/HCPCS: G0166

== ENCOUNTER → 2020-01-04 | Outpatient (CLI) | payer MEDICARE, OTHER ==
[2020-01-04 14:45] VITALS: BP 135/77
[2020-01-04 15:18] VITALS: BP 115/67
== END | disposition home or self-care (01) ==
LOC: CHF HDHVI 14:14
PROVIDERS: ATTEND Internal Medicine Cardiovascular Disease
DX: I25.118 Atherosclerotic heart disease of native coronary artery with other forms of angina pectoris (principal); I50.23 Acute on chronic systolic (congestive) heart failure; J44.9 Chronic obstructive pulmonary disease, unspecified; I48.91 Unspecified atrial fibrillation; I82.409 Acute embolism and thrombosis of unspecified deep veins of unspecified lower extremity; I63.9 Cerebral infarction, unspecified
CPT/HCPCS: G0166

== ENCOUNTER → 2020-01-05 | Outpatient (CLI) | payer MEDICARE, OTHER ==
[2020-01-05 14:52] VITALS: BP 144/82
[2020-01-05 15:42] VITALS: BP 142/78
== END | disposition home or self-care (01) ==
LOC: CHF HDHVI 14:21
PROVIDERS: ATTEND Internal Medicine Cardiovascular Disease
DX: I25.118 Atherosclerotic heart disease of native coronary artery with other forms of angina pectoris (principal); I11.0 Hypertensive heart disease with heart failure; I50.23 Acute on chronic systolic (congestive) heart failure; I63.9 Cerebral infarction, unspecified; I82.409 Acute embolism and thrombosis of unspecified deep veins of unspecified lower extremity; I48.91 Unspecified atrial fibrillation; J44.9 Chronic obstructive pulmonary disease, unspecified
CPT/HCPCS: G0166

== ENCOUNTER → 2020-01-06 | Outpatient (CLI) | payer MEDICARE, OTHER ==
[2020-01-06 14:37] VITALS: BP 142/77
[2020-01-06 15:08] VITALS: BP 131/78
== END | disposition home or self-care (01) ==
LOC: CHF HDHVI 14:04
PROVIDERS: ATTEND Internal Medicine Cardiovascular Disease
DX: I25.118 Atherosclerotic heart disease of native coronary artery with other forms of angina pectoris (principal); I11.0 Hypertensive heart disease with heart failure; I50.23 Acute on chronic systolic (congestive) heart failure; I82.409 Acute embolism and thrombosis of unspecified deep veins of unspecified lower extremity; I63.9 Cerebral infarction, unspecified; I48.91 Unspecified atrial fibrillation; J44.9 Chronic obstructive pulmonary disease, unspecified
CPT/HCPCS: G0166

== ENCOUNTER → 2020-01-07 | Outpatient (CLI) | payer MEDICARE, OTHER ==
[2020-01-07 14:39] VITALS: BP 141/79
--- NOTE | 2020-01-07 14:39 | NUR ---
Signature Attestation Statement: I EMELYN GREER performed this procedure EECP on this patient. Addendum: 01/07/20 at 1440 by EMELYN GREER [email or web address] Amended: Links added.
--- NOTE | 2020-01-07 14:40 | NUR ---
Signature Attestation Statement: I EMELYN GREER performed this procedure EECP on this patient. Addendum: 01/07/20 at 1441 by EMELYN GREER [email or web address] Amended: Links added.
[2020-01-07 15:20] VITALS: BP 146/80
--- NOTE | 2020-01-07 15:20 | NUR ---
Signature Attestation Statement: I EMELYN GREER performed this procedure EECP on this patient. Addendum: 01/07/20 at 1520 by EMELYN GREER [email or web address] Amended: Links added.
--- NOTE | 2020-01-07 15:34 | NUR ---
Signature Attestation Statement: I EMELYN GREER performed this procedure EECP on this patient. Addendum: 01/07/20 at 1535 by EMELYN GREER [email or web address] Amended: Links added.
== END | disposition home or self-care (01) ==
LOC: CHF HDHVI 14:08
PROVIDERS: ATTEND Internal Medicine Cardiovascular Disease
DX: I25.118 Atherosclerotic heart disease of native coronary artery with other forms of angina pectoris (principal); I11.0 Hypertensive heart disease with heart failure; I50.23 Acute on chronic systolic (congestive) heart failure; I48.91 Unspecified atrial fibrillation; I63.9 Cerebral infarction, unspecified; I82.409 Acute embolism and thrombosis of unspecified deep veins of unspecified lower extremity; J44.9 Chronic obstructive pulmonary disease, unspecified
CPT/HCPCS: G0166

== ENCOUNTER → 2020-01-10 | Outpatient (CLI) | payer MEDICARE, OTHER ==
[2020-01-10 14:48] VITALS: BP 128/76
--- NOTE | 2020-01-10 14:49 | NUR ---
Signature Attestation Statement: I EMELYN GREER performed this procedure EECP on this patient. Addendum: 01/10/20 at 1449 by EMELYN GREER [email or web address] Amended: Links added.
--- NOTE | 2020-01-10 14:50 | NUR ---
Signature Attestation Statement: I EMELYN GREER performed this procedure EECP on this patient. Addendum: 01/10/20 at 1450 by EMELYN GREER [email or web address] Amended: Links added.
--- NOTE | 2020-01-10 14:51 | NUR ---
Signature Attestation Statement: I EMELYN GREER performed this procedure EECP on this patient. Addendum: 01/10/20 at 1451 by EMELYN GREER [email or web address] Amended: Links added.
[2020-01-10 15:29] VITALS: BP 131/77
--- NOTE | 2020-01-10 15:29 | NUR ---
Signature Attestation Statement: I EMELYN GREER performed this procedure EECP on this patient. Addendum: 01/10/20 at 1529 by EMELYN GREER [email or web address] Amended: Links added.
--- NOTE | 2020-01-10 15:38 | NUR ---
Signature Attestation Statement: I EMELYN GREER performed this procedure EECP on this patient. Addendum: 01/10/20 at 1538 by EMELYN GREER [email or web address] Amended: Links added.
== END | disposition home or self-care (01) ==
LOC: CHF HDHVI 14:20
PROVIDERS: ATTEND Internal Medicine Cardiovascular Disease
DX: I25.118 Atherosclerotic heart disease of native coronary artery with other forms of angina pectoris (principal); I11.0 Hypertensive heart disease with heart failure; I50.23 Acute on chronic systolic (congestive) heart failure; I63.9 Cerebral infarction, unspecified; I48.91 Unspecified atrial fibrillation; I82.409 Acute embolism and thrombosis of unspecified deep veins of unspecified lower extremity; J44.9 Chronic obstructive pulmonary disease, unspecified
CPT/HCPCS: G0166

== ENCOUNTER → 2020-01-11 | Outpatient (CLI) | payer MEDICARE, OTHER ==
[2020-01-11 14:56] VITALS: BP 151/79
--- NOTE | 2020-01-11 14:57 | NUR ---
Signature Attestation Statement: I EMELYN GREER performed this procedure EECP on this patient. Addendum: 01/11/20 at 1458 by EMELYN GREER [email or web address] Amended: Links added.
--- NOTE | 2020-01-11 14:57 | NUR ---
Signature Attestation Statement: I EMELYN GREER performed this procedure EECP on this patient. Addendum: 01/11/20 at 1457 by EMELYN GREER [email or web address] Amended: Links added.
[2020-01-11 15:15] VITALS: BP 136/75
--- NOTE | 2020-01-11 15:15 | NUR ---
Signature Attestation Statement: I EMELYN GREER performed this procedure EECP on this patient. Addendum: 01/11/20 at 1515 by EMELYN GREER [email or web address] Amended: Links added.
--- NOTE | 2020-01-11 15:28 | NUR ---
Signature Attestation Statement: I EMELYN GREER performed this procedure EECP on this patient. Addendum: 01/11/20 at 1529 by EMELYN GREER [email or web address] Amended: Links added.
== END | disposition home or self-care (01) ==
LOC: CHF HDHVI 14:07
PROVIDERS: ATTEND Internal Medicine Cardiovascular Disease
DX: I25.118 Atherosclerotic heart disease of native coronary artery with other forms of angina pectoris (principal); I11.0 Hypertensive heart disease with heart failure; I50.23 Acute on chronic systolic (congestive) heart failure; I48.91 Unspecified atrial fibrillation; I63.9 Cerebral infarction, unspecified; I82.409 Acute embolism and thrombosis of unspecified deep veins of unspecified lower extremity
CPT/HCPCS: G0166

== ENCOUNTER → 2020-01-12 | Outpatient (CLI) | payer MEDICARE, OTHER ==
[2020-01-12 14:33] VITALS: BP 147/79
--- NOTE | 2020-01-12 14:33 | NUR ---
Signature Attestation Statement: I EMELYN GREER performed this procedure EECP on this patient. Addendum: 01/12/20 at 1434 by EMELYN GREER [email or web address] Amended: Links added.
--- NOTE | 2020-01-12 14:34 | NUR ---
Signature Attestation Statement: I EMELYN GREER performed this procedure EECP on this patient. Addendum: 01/12/20 at 1435 by EMELYN GREER [email or web address] Amended: Links added.
[2020-01-12 15:08] VITALS: BP 122/77
--- NOTE | 2020-01-12 15:08 | NUR ---
Signature Attestation Statement: I EMELYN GREER performed this procedure EECP on this patient. Addendum: 01/12/20 at 1508 by EMELYN GREER [email or web address] Amended: Links added.
--- NOTE | 2020-01-12 16:16 | NUR ---
Signature Attestation Statement: I EMELYN GREER performed this procedure EECP on this patient. Addendum: 01/12/20 at 1616 by EMELYN GREER [email or web address] Amended: Links added.
== END | disposition home or self-care (01) ==
LOC: CHF HDHVI 14:05
PROVIDERS: ATTEND Internal Medicine Cardiovascular Disease
DX: I25.118 Atherosclerotic heart disease of native coronary artery with other forms of angina pectoris (principal); I11.0 Hypertensive heart disease with heart failure; I50.23 Acute on chronic systolic (congestive) heart failure; I82.409 Acute embolism and thrombosis of unspecified deep veins of unspecified lower extremity; I63.9 Cerebral infarction, unspecified; I48.91 Unspecified atrial fibrillation; J44.9 Chronic obstructive pulmonary disease, unspecified; Z95.5 Presence of coronary angioplasty implant and graft
CPT/HCPCS: G0166

== ENCOUNTER → 2020-01-13 | Outpatient (CLI) | payer MEDICARE, OTHER ==
[2020-01-13 14:50] VITALS: BP 160/95
--- NOTE | 2020-01-13 14:51 | NUR ---
Signature Attestation Statement: I EMELYN GREER performed this procedure EECP on this patient. Addendum: 01/13/20 at 1451 by EMELYN GREER [email or web address] Amended: Links added.
--- NOTE | 2020-01-13 14:51 | NUR ---
Signature Attestation Statement: I EMELYN GREER performed this procedure EECP on this patient. Addendum: 01/13/20 at 1452 by EMELYN GREER HDHI2 Amended: Links added.
--- NOTE | 2020-01-13 15:22 | NUR ---
Signature Attestation Statement: I EMELYN GREER performed this procedure EECP on this patient. Addendum: 01/13/20 at 1523 by EMELYN GREER HDHI2 Amended: Links added.
[2020-01-13 15:23] VITALS: BP 141/82
--- NOTE | 2020-01-13 15:34 | NUR ---
Signature Attestation Statement: I EMELYN GREER performed this procedure EECP on this patient. Addendum: 01/13/20 at 1534 by EMELYN GREER HDHI2 Amended: Links added.
== END | disposition home or self-care (01) ==
LOC: CHF HDHVI 14:12
PROVIDERS: ATTEND Internal Medicine Cardiovascular Disease
DX: I25.118 Atherosclerotic heart disease of native coronary artery with other forms of angina pectoris (principal); I11.0 Hypertensive heart disease with heart failure; I50.23 Acute on chronic systolic (congestive) heart failure; I82.409 Acute embolism and thrombosis of unspecified deep veins of unspecified lower extremity; I48.91 Unspecified atrial fibrillation; I63.9 Cerebral infarction, unspecified; J44.9 Chronic obstructive pulmonary disease, unspecified
CPT/HCPCS: G0166

== ENCOUNTER → 2020-01-14 | Outpatient (CLI) | payer MEDICARE, OTHER ==
[2020-01-14 14:45] VITALS: BP 139/97
[2020-01-14 15:22] VITALS: BP 131/76
== END | disposition home or self-care (01) ==
LOC: CHF HDHVI 14:09
PROVIDERS: ATTEND Internal Medicine Cardiovascular Disease
DX: I25.118 Atherosclerotic heart disease of native coronary artery with other forms of angina pectoris (principal); I50.23 Acute on chronic systolic (congestive) heart failure; J44.9 Chronic obstructive pulmonary disease, unspecified; I48.91 Unspecified atrial fibrillation; I82.409 Acute embolism and thrombosis of unspecified deep veins of unspecified lower extremity; I63.9 Cerebral infarction, unspecified
CPT/HCPCS: G0166

== ENCOUNTER → 2020-01-25 | Outpatient (CLI) | payer MEDICARE, OTHER ==
[2020-01-25 14:56] VITALS: BP 155/83
--- NOTE | 2020-01-25 14:56 | NUR ---
Signature Attestation Statement: I EMELYN GREER performed this procedure EECP on this patient. Addendum: 01/25/20 at 1456 by EMELYN GREER HDHI2 Amended: Links added.
--- NOTE | 2020-01-25 14:57 | NUR ---
Signature Attestation Statement: I EMELYN GREER performed this procedure EECP on this patient. Addendum: 01/25/20 at 1457 by EMELYN GREER [email or web address] Amended: Links added.
--- NOTE | 2020-01-25 14:57 | NUR ---
Signature Attestation Statement: I EMELYN GREER performed this procedure EECP on this patient. Addendum: 01/25/20 at 1458 by EMELYN GREER [email or web address] Amended: Links added.
--- NOTE | 2020-01-25 15:29 | NUR ---
Signature Attestation Statement: I EMELYN GREER performed this procedure EECP on this patient. Addendum: 01/25/20 at 1530 by EMELYN GREER [email or web address] Amended: Links added.
[2020-01-25 15:30] VITALS: BP 147/86
--- NOTE | 2020-01-25 15:40 | NUR ---
Signature Attestation Statement: I EMELYN GREER performed this procedure EECP on this patient. Addendum: 01/25/20 at 1540 by EMELYN GREER [email or web address] Amended: Links added.
== END | disposition home or self-care (01) ==
LOC: CHF HDHVI 14:21
PROVIDERS: ATTEND Internal Medicine Cardiovascular Disease
DX: I25.118 Atherosclerotic heart disease of native coronary artery with other forms of angina pectoris (principal); I11.0 Hypertensive heart disease with heart failure; I50.23 Acute on chronic systolic (congestive) heart failure; I48.91 Unspecified atrial fibrillation; I63.9 Cerebral infarction, unspecified; I82.409 Acute embolism and thrombosis of unspecified deep veins of unspecified lower extremity; J44.9 Chronic obstructive pulmonary disease, unspecified
CPT/HCPCS: G0166

== ENCOUNTER → 2020-01-31 | Outpatient (CLI) | payer MEDICARE, OTHER ==
[2020-01-31 15:57] VITALS: BP 155/85
[2020-01-31 16:03] VITALS: BP 169/98
== END | disposition home or self-care (01) ==
LOC: CHF HDHVI 14:22
PROVIDERS: ATTEND Internal Medicine Cardiovascular Disease
DX: I25.118 Atherosclerotic heart disease of native coronary artery with other forms of angina pectoris (principal); I50.23 Acute on chronic systolic (congestive) heart failure; I63.9 Cerebral infarction, unspecified; I48.91 Unspecified atrial fibrillation; I82.409 Acute embolism and thrombosis of unspecified deep veins of unspecified lower extremity; J44.9 Chronic obstructive pulmonary disease, unspecified; I73.9 Peripheral vascular disease, unspecified; Z98.61 Coronary angioplasty status
CPT/HCPCS: G0166

== ENCOUNTER → 2020-02-01 | Outpatient (CLI) | payer MEDICARE, OTHER ==
[2020-02-01 15:07] VITALS: BP 152/82
--- NOTE | 2020-02-01 15:09 | NUR ---
Signature Attestation Statement: I EMELYN GREER performed this procedure EECP on this patient. Addendum: 02/01/20 at 1509 by EMELYN GREER [email or web address] Amended: Links added.
--- NOTE | 2020-02-01 15:10 | NUR ---
Signature Attestation Statement: I EMELYN GREER performed this procedure EECP on this patient. Addendum: 02/01/20 at 1510 by EMELYN GREER [email or web address] Amended: Links added.
--- NOTE | 2020-02-01 15:11 | NUR ---
Signature Attestation Statement: I EMELYN GREER performed this procedure EECP on this patient. Addendum: 02/01/20 at 1511 by EMELYN GREER [email or web address] Amended: Links added.
--- NOTE | 2020-02-01 15:21 | NUR ---
Signature Attestation Statement: I EMELYN GREER performed this procedure EECP on this patient. Addendum: 02/01/20 at 1522 by EMELYN GREER [email or web address] Amended: Links added.
[2020-02-01 15:22] VITALS: BP 150/79
--- NOTE | 2020-02-01 15:28 | NUR ---
Signature Attestation Statement: I EMELYN GREER performed this procedure EECP on this patient. Addendum: 02/01/20 at 1529 by EMELYN GREER [email or web address] Amended: Links added.
== END | disposition home or self-care (01) ==
LOC: CHF HDHVI 14:11
PROVIDERS: ATTEND Internal Medicine Cardiovascular Disease
DX: I25.118 Atherosclerotic heart disease of native coronary artery with other forms of angina pectoris (principal); I50.23 Acute on chronic systolic (congestive) heart failure; I63.9 Cerebral infarction, unspecified; R06.02 Shortness of breath; I73.9 Peripheral vascular disease, unspecified; J44.9 Chronic obstructive pulmonary disease, unspecified; Z98.61 Coronary angioplasty status
CPT/HCPCS: G0166

== ENCOUNTER → 2020-02-02 | Outpatient (CLI) | payer MEDICARE, OTHER ==
[2020-02-02 14:36] VITALS: BP 163/74
--- NOTE | 2020-02-02 14:37 | NUR ---
Signature Attestation Statement: I EMELYN GREER performed this procedure EECP on this patient. Addendum: 02/02/20 at 1437 by EMELYN GREER [email or web address] Amended: Links added.
--- NOTE | 2020-02-02 14:38 | NUR ---
Signature Attestation Statement: I EMELYN GREER performed this procedure EECP on this patient. Addendum: 02/02/20 at 1438 by EMELYN GREER [email or web address] Amended: Links added.
[2020-02-02 15:18] VITALS: BP 151/85
--- NOTE | 2020-02-02 15:18 | NUR ---
Signature Attestation Statement: I EMELYN GREER performed this procedure EECP on this patient. Addendum: 02/02/20 at 1518 by EMELYN GREER [email or web address] Amended: Links added.
--- NOTE | 2020-02-02 15:24 | NUR ---
Signature Attestation Statement: I EMELYN GREER performed this procedure EECP on this patient. Addendum: 02/02/20 at 1525 by EMELYN GREER [email or web address] Amended: Links added.
== END | disposition home or self-care (01) ==
LOC: CHF HDHVI 14:09
PROVIDERS: ATTEND Internal Medicine Cardiovascular Disease
DX: I25.118 Atherosclerotic heart disease of native coronary artery with other forms of angina pectoris (principal); I11.0 Hypertensive heart disease with heart failure; I50.23 Acute on chronic systolic (congestive) heart failure; I63.9 Cerebral infarction, unspecified; I82.409 Acute embolism and thrombosis of unspecified deep veins of unspecified lower extremity; I48.91 Unspecified atrial fibrillation; J44.9 Chronic obstructive pulmonary disease, unspecified
CPT/HCPCS: G0166

== ENCOUNTER → 2020-03-01 | Outpatient (CLI) | payer MEDICARE, OTHER ==
[2020-03-01 10:46] VITALS: BP 146/79
[2020-03-01 11:05] VITALS: BP 139/76
[2020-03-01 12:11] LABS: Basophils # (auto) 0 10 ^3/uL (0-0.2); Basophils % (auto) 0.6 % (0.0-2.0); Eosinophils # (auto) 0.1 10 ^3/uL (0-0.8); Eosinophils % (auto) 2.2 % (0.0-7.0); Hematocrit 42.1 % (41.0-53.0); Hemoglobin 14.5 g/dL (13.5-17.5); Lymphocytes # (auto) 1.2 10 ^3/uL (0.4-5.4); Lymphocytes % (auto) 17.2 % (10.0-50.0); Mean Corpuscular Hemoglobin 31.2 pg (28.0-32.0); Mean Corpuscular Hgb Conc. 34.5 g/dL (32.0-36.0); Mean Corpuscular Volume 90.3 fL (80.0-100.0); Monocytes # (auto) 0.6 10 ^3/uL (0-1.3); Monocytes % (auto) 9.1 % (0.0-12.0); Neutrophils # (auto) 4.9 10 ^3/uL (1.6-8.6); Neutrophils % (auto) 70.9 % (37.0-80.0); Platelet Count (auto) 233 10^3/uL (140-450); Red Blood Cells 4.66 10^6/uL (4.5-5.90); Red Cell Distribution Width 15.4 % (11.8-14.3); White Blood Cell 6.8 10^3/uL (4.4-10.8)
[2020-03-01 12:12] LABS: Urine Blood 3+ /uL (Negative); Urine Specific Gravity 1.015 (1.001-1.035)
[2020-03-01 12:19] LABS: BUN/Creatinine Ratio 17.8; Calcium 9.1 mg/dL (8.5-10.1); Potassium 3.9 mmol/L (3.5-5.1)
[2020-03-01 12:37] LABS: INR 2.41 (0.9-1.15); Partial Thromboplastin Time 34.3 sec (23.0-31.2)
== END | disposition home or self-care (01) ==
LOC: Rad HDHVI 09:59
PROVIDERS: ATTEND Internal Medicine Cardiovascular Disease
DX: Z01.812 Encounter for preprocedural laboratory examination (principal); M79.89 Other specified soft tissue disorders; N39.0 Urinary tract infection, site not specified; D53.8 Other specified nutritional anemias; I70.0 Atherosclerosis of aorta; M47.814 Spondylosis without myelopathy or radiculopathy, thoracic region
CPT/HCPCS: 36415; 71046; 80048; 81003; 85025; 85610; 85730; 87086; 93005; G0463

== ENCOUNTER → 2020-09-29 | Outpatient (CLI) | payer MEDICARE, OTHER | END | disposition home or self-care (01) | LOC: Rad HDHVI 13:16 | PROVIDERS: ATTEND Internal Medicine Cardiovascular Disease | DX: M79.662 Pain in left lower leg (principal) | CPT/HCPCS: 73590 ==

== ENCOUNTER 2020-10-23 18:04 | Inpatient (IN) | payer MEDICARE, OTHER ==
[~2020-10-23] VITALS: Ht 162.6 cm; Wt 67.7 kg
[2020-10-23] MEDS ORDERED: TETANUS-DIPTH-ACEL PERTUSSIS 0.5ML SYR Tdap IM ONE (18:45)
[2020-10-23] MEDS ORDERED: SODIUM CHLORIDE 0.9% 500 ML IV ONE (18:45)
[2020-10-23] MEDS ORDERED: ONDANSETRON HCL 4 MG/2 ML VIAL IV ONE (18:45)
[2020-10-23] MEDS ORDERED: MORPHINE SULFATE 4 MG/ML SYR/VIAL IV ONE (18:45)
[2020-10-23 19:30] LABS: Basophils # (auto) 0 10 ^3/uL (0-0.2); Basophils % (auto) 0.4 % (0.0-2.0); Eosinophils # (auto) 0.2 10 ^3/uL (0-0.8); Eosinophils % (auto) 1.5 % (0.0-7.0); Hematocrit 41.1 % (41.0-53.0); Hemoglobin 13.6 g/dL (13.5-17.5); Lymphocytes # (auto) 1.2 10 ^3/uL (0.4-5.4); Lymphocytes % (auto) 10.7 % (10.0-50.0); Mean Corpuscular Hemoglobin 27.4 pg (28.0-32.0); Mean Corpuscular Hgb Conc. 33.1 g/dL (32.0-36.0); Mean Corpuscular Volume 82.8 fL (80.0-100.0); Monocytes # (auto) 0.9 10 ^3/uL (0-1.3); Monocytes % (auto) 7.8 % (0.0-12.0); Neutrophils # (auto) 9.2 10 ^3/uL (1.6-8.6); Neutrophils % (auto) 79.6 % (37.0-80.0); Red Blood Cells 4.96 10^6/uL (4.5-5.90); White Blood Cell 11.5 10^3/uL (4.4-10.8)
[2020-10-23 19:44] LABS: Alanine Aminotransferase 36 U/L (16-61); Anion Gap 7 (5-15); Calcium 8.5 mg/dL (8.5-10.1); Carbon Dioxide 25 mmol/L (21-32); Chloride 110 mmol/L (98-107); Glucose 146 mg/dL (74-106); Magnesium 1.9 mg/dL (1.6-2.6); Potassium 3.6 mmol/L (3.5-5.1); Sodium 142 mmol/L (136-145)
[2020-10-23 19:48] LABS: Alkaline Phosphatase 150 U/L (45-117); Aspartate Aminotransferase 21 U/L (15-37); BUN/Creatinine Ratio 19.3; Bilirubin, Total 0.4 mg/dL (0.2-1.0); Blood Urea Nitrogen 17 mg/dL (7-18); GFR African American 106 mL/min; GFR Non-African American 88 mL/min; Total Protein 6.6 g/dL (6.4-8.2)
[2020-10-23] MEDS ORDERED: HYDROmorphone HCL 2 MG/ML VL IV ONE (22:00)
[2020-10-24] MEDS ORDERED: HYDROmorphone HCL 2 MG/ML VL IV ONE
[2020-10-24] MEDS ORDERED: MORPHINE SULFATE INJECTION 2 MG/2 ML SYRG IV PRN (02:30)
[2020-10-24] MEDS ORDERED: NITROGLYCERIN 0.4 MG SL TAB SL PRN (02:30)
[2020-10-24] MEDS ORDERED: HYDROcodone-ACET 5/325MG TAB PO PRN (02:30)
[2020-10-24] MEDS ORDERED: hydrALAZINE HCL 20 MG/ML VL IV ONE (03:00)
[2020-10-24 03:36] LABS: Urine Bacteria FEW /hpf (None Seen); Urine Blood Negative /uL (Negative); Urine Hyaline Cast FEW /lpf (0 - 2); Urine Mucus FEW (None Seen); Urine Specific Gravity 1.019 (1.001-1.035); Urine WBC 4 /hpf (0 - 3)
[2020-10-24] MEDS: HYDROcodone-ACET 5/325MG TAB PO PRN ×2 (05:13→10:17)
[2020-10-24] MEDS: GEMFIBROZIL 600 MG TAB PO SCH (12:00)
[2020-10-24] MEDS: ASPirin-EC 325mg tab PO SCH (12:14)
[2020-10-24] MEDS: HYDROmorphone HCL 2 MG/ML VL IV PRN ×2 (17:02→23:55)
[2020-10-24 23:20] VITALS: BP 148/92
[2020-10-25] VITALS (7 sets, daily range): BP systolic 144–177; BP diastolic 87–98
[2020-10-25] MEDS: GEMFIBROZIL 600 MG TAB PO SCH (08:51)
[2020-10-25] MEDS: HYDROmorphone HCL 2 MG/ML VL IV PRN ×2 (08:52→14:48)
[2020-10-25] MEDS: ASPirin-EC 325mg tab PO SCH (08:52)
[2020-10-25] MEDS: HYDROcodone-ACET 5/325MG TAB PO PRN (15:57)
[2020-10-26] VITALS (8 sets, daily range): BP systolic 99–165; BP diastolic 65–95
[2020-10-26] MEDS: GEMFIBROZIL 600 MG TAB PO SCH (08:35)
[2020-10-26] MEDS: ASPirin-EC 325mg tab PO SCH (08:35)
[2020-10-26] MEDS: HYDROcodone-ACET 5/325MG TAB PO PRN ×2 (08:37→22:04)
[2020-10-26] MEDS ORDERED: ISOSORBIDE MONONITRATE ER 60 MG TAB PO ONE (13:30)
[2020-10-26] MEDS ORDERED: ONDANSETRON HCL 4 MG/2 ML VIAL IV PRN (18:15)
[2020-10-27] MEDS: SODIUM CHLORIDE 0.9% 1,000 ML IV SCH ×2 (00:47→07:25)
[2020-10-27 05:00] VITALS: BP 124/67
[2020-10-27] MEDS: HYDROcodone-ACET 5/325MG TAB PO PRN (06:28)
[2020-10-27 07:04] LABS: Basophils # (auto) 0 10 ^3/uL (0-0.2); Basophils % (auto) 0.4 % (0.0-2.0); Eosinophils # (auto) 0.2 10 ^3/uL (0-0.8); Eosinophils % (auto) 1.9 % (0.0-7.0); Hemoglobin 11.7 g/dL (13.5-17.5); Lymphocytes # (auto) 1.5 10 ^3/uL (0.4-5.4); Lymphocytes % (auto) 13.6 % (10.0-50.0); Mean Corpuscular Hgb Conc. 33.3 g/dL (32.0-36.0); Mean Corpuscular Volume 84.1 fL (80.0-100.0); Monocytes # (auto) 1.2 10 ^3/uL (0-1.3); Monocytes % (auto) 10.8 % (0.0-12.0); Neutrophils # (auto) 7.9 10 ^3/uL (1.6-8.6); Neutrophils % (auto) 73.3 % (37.0-80.0); Red Blood Cells 4.16 10^6/uL (4.5-5.90); Red Cell Distribution Width 16.6 % (11.8-14.3); White Blood Cell 10.7 10^3/uL (4.4-10.8)
[2020-10-27 07:18] LABS: Potassium 3.8 mmol/L (3.5-5.1)
[2020-10-27 07:29] LABS: BUN/Creatinine Ratio 36.7; Calcium 8.7 mg/dL (8.5-10.1)
[2020-10-27 08:00] VITALS: BP 126/68
[2020-10-27] MEDS: ASPirin-EC 325mg tab PO SCH (10:25)
[2020-10-27] MEDS: GEMFIBROZIL 600 MG TAB PO SCH (10:25)
== END 2020-10-27 12:53 | disposition home health service (06) | DRG 563 ==
LOC: EDBD 18:04 → ER 18:08 → SUATTDRO 10-24 02:19 → TELE 10-24 02:25 → TELE-CENTR 10-24 23:36
PROVIDERS: ADMIT Internal Medicine Cardiovascular Disease; ATTEND Internal Medicine Cardiovascular Disease
DX: S42.232A 3-part fracture of surgical neck of left humerus, initial encounter for closed fracture (principal); Z20.822 Contact with and (suspected) exposure to COVID-19; I10 Essential (primary) hypertension; I25.10 Atherosclerotic heart disease of native coronary artery without angina pectoris; I48.91 Unspecified atrial fibrillation; I95.1 Orthostatic hypotension; Z96.619 Presence of unspecified artificial shoulder joint; K21.9 Gastro-esophageal reflux disease without esophagitis; I73.9 Peripheral vascular disease, unspecified; W18.39XA Other fall on same level, initial encounter; N40.0 Benign prostatic hyperplasia without lower urinary tract symptoms; S00.03XA Contusion of scalp, initial encounter; Y93.01 Activity, walking, marching and hiking; Z82.49 Family history of ischemic heart disease and other diseases of the circulatory system; Z86.73 Personal history of transient ischemic attack (TIA), and cerebral infarction without residual deficits; Z87.891 Personal history of nicotine dependence; Y92.89 Other specified places as the place of occurrence of the external cause; Y99.8 Other external cause status; I25.2 Old myocardial infarction; Z79.899 Other long term (current) drug therapy
CPT/HCPCS: 36415; 70450; 71045; 73030; 73070; 73200; 73560; 80048; 80053; 81001; 83735; 83880; 84484; 85025; 87426; 90471; 90715; 93005; 96361; 96374; 96375; 97163; G0378; J2405

== ENCOUNTER → 2021-04-18 | Outpatient (CLI) | payer MEDICARE, OTHER | END | disposition home or self-care (01) | LOC: Rad HDHVI 08:51 | PROVIDERS: ATTEND Internal Medicine Cardiovascular Disease | DX: I08.3 Combined rheumatic disorders of mitral, aortic and tricuspid valves (principal) | CPT/HCPCS: 93306 ==

== ENCOUNTER → 2021-04-25 | Outpatient (CLI) | payer MEDICARE, OTHER | END | disposition home or self-care (01) | LOC: Rad HDHVI 07:49 | PROVIDERS: ATTEND Internal Medicine Cardiovascular Disease | DX: I65.23 Occlusion and stenosis of bilateral carotid arteries (principal); I10 Essential (primary) hypertension; E78.5 Hyperlipidemia, unspecified | CPT/HCPCS: 93880 ==

== ENCOUNTER → 2021-05-10 | Outpatient (CLI) | payer MEDICARE, OTHER ==
[~2021-05-10] VITALS: Ht 162.6 cm; Wt 64.4 kg
== END | disposition home or self-care (01) ==
LOC: Rad HDHVI 08:51
PROVIDERS: ATTEND Internal Medicine Cardiovascular Disease
DX: I25.10 Atherosclerotic heart disease of native coronary artery without angina pectoris (principal); I50.33 Acute on chronic diastolic (congestive) heart failure
CPT/HCPCS: 78452; 93017; 96374; A9500

== ENCOUNTER → 2021-10-05 | Outpatient (CLI) | payer MEDICARE, OTHER | END | disposition home or self-care (01) | LOC: Rad HDHVI 10:14 | PROVIDERS: ATTEND Internal Medicine Cardiovascular Disease | DX: S69.91XA Unspecified injury of right wrist, hand and finger(s), initial encounter (principal); S49.91XA Unspecified injury of right shoulder and upper arm, initial encounter; X58.XXXA Exposure to other specified factors, initial encounter; Y93.89 Activity, other specified; Y92.89 Other specified places as the place of occurrence of the external cause; Y99.8 Other external cause status | CPT/HCPCS: 70200; 73030; 73060; 73110 ==

== ENCOUNTER 2021-12-04 14:55 | Emergency (ER) | payer MEDICARE, OTHER ==
[~2021-12-04] VITALS: Ht 162.6 cm; Wt 62.7 kg
[2021-12-04] MEDS ORDERED: HYDROcodone-ACET 5/325MG TAB PO ONE (17:00)
[2021-12-04 17:20] LABS: Basophils # (auto) 0.1 10 ^3/uL (0-0.2); Basophils % (auto) 0.4 % (0.0-2.0); Eosinophils # (auto) 0.1 10 ^3/uL (0-0.8); Eosinophils % (auto) 0.8 % (0.0-7.0); Hematocrit 48.3 % (41.0-53.0); Hemoglobin 16.1 g/dL (13.5-17.5); Lymphocytes # (auto) 1.6 10 ^3/uL (0.4-5.4); Lymphocytes % (auto) 11.2 % (10.0-50.0); Mean Corpuscular Hemoglobin 30.3 pg (28.0-32.0); Mean Corpuscular Hgb Conc. 33.3 g/dL (32.0-36.0); Mean Corpuscular Volume 90.9 fL (80.0-100.0); Monocytes # (auto) 1.3 10 ^3/uL (0-1.3); Monocytes % (auto) 8.9 % (0.0-12.0); Neutrophils # (auto) 11.3 10 ^3/uL (1.6-8.6); Neutrophils % (auto) 78.7 % (37.0-80.0); Red Blood Cells 5.31 10^6/uL (4.5-5.90); Red Cell Distribution Width 15.1 % (11.8-14.3); White Blood Cell 14.4 10^3/uL (4.4-10.8)
[2021-12-04 17:28] LABS: INR 1.06 (0.9-1.15); Partial Thromboplastin Time 22.8 sec (24.6-33.4)
[2021-12-04 17:40] LABS: Calcium 9.6 mg/dL (8.5-10.1); Potassium 4.4 mmol/L (3.5-5.1)
[2021-12-04 17:46] LABS: Albumin 3.9 g/dL (3.4-5.0); BUN/Creatinine Ratio 21.4; Bilirubin, Total 0.7 mg/dL (0.2-1.0); Total Protein 7.6 g/dL (6.4-8.2)
[2021-12-04] MEDS ORDERED: cefTRIAXone SOD 1,000 MG VL IM ONE (18:15)
[2021-12-04] MEDS ORDERED: hydrALAZINE HCL 10 MG TAB PO ONE (18:45)
[2021-12-04] MEDS ORDERED: cefTRIAXone 1GM/50ML D5W 50 ML IV ONE (19:00)
[2021-12-04 19:16] VITALS: BP 171/92
== END 2021-12-04 17:51 | disposition short-term general hospital (02) ==
LOC: ER 14:55 → EDBD 14:55 → ER 17:51
DX: S02.2XXA Fracture of nasal bones, initial encounter for closed fracture (principal); S02.121A Fracture of orbital roof, right side, initial encounter for closed fracture; S02.19XA Other fracture of base of skull, initial encounter for closed fracture; I10 Essential (primary) hypertension; I25.2 Old myocardial infarction; I48.91 Unspecified atrial fibrillation; I25.10 Atherosclerotic heart disease of native coronary artery without angina pectoris; E78.5 Hyperlipidemia, unspecified; K21.9 Gastro-esophageal reflux disease without esophagitis; Z87.891 Personal history of nicotine dependence; Z79.82 Long term (current) use of aspirin; Z79.01 Long term (current) use of anticoagulants; Z79.899 Other long term (current) drug therapy; Z86.73 Personal history of transient ischemic attack (TIA), and cerebral infarction without residual deficits; W01.0XXA Fall on same level from slipping, tripping and stumbling without subsequent striking against object, initial encounter; Y93.89 Activity, other specified; Y92.89 Other specified places as the place of occurrence of the external cause; Y99.8 Other external cause status
CPT/HCPCS: 36415; 70450; 70486; 73030; 80053; 84484; 85025; 85610; 85730; 96365; 99285; J0696

== ENCOUNTER → 2022-03-21 | Outpatient (CLI) | payer MEDICARE, OTHER ==
[~2022-03-21] VITALS: Ht 162.6 cm; Wt 62.6 kg
[~2022-03-21] MED LIST changes: +ADENOSINE 53 MG in GIVE UN-DILUTED 0 ML IV ONE; +ADENOSINE 90 MG/30 ML INJ IV ONE
== END | disposition home or self-care (01) ==
LOC: Rad HDHVI 08:37
PROVIDERS: ATTEND Internal Medicine Cardiovascular Disease
DX: I25.10 Atherosclerotic heart disease of native coronary artery without angina pectoris (principal); I25.2 Old myocardial infarction; I63.9 Cerebral infarction, unspecified; I73.9 Peripheral vascular disease, unspecified; I10 Essential (primary) hypertension; R06.02 Shortness of breath; E78.2 Mixed hyperlipidemia; I42.9 Cardiomyopathy, unspecified; I48.0 Paroxysmal atrial fibrillation; E78.5 Hyperlipidemia, unspecified; Z79.899 Other long term (current) drug therapy
CPT/HCPCS: 78452; 93005; 96374; 96375; A9500; J0153

== ENCOUNTER → 2022-04-23 | Outpatient (CLI) | payer MEDICARE, OTHER ==
[~2022-04-23] MED LIST changes: -ADENOSINE 53 MG in GIVE UN-DILUTED 0 ML IV ONE; -ADENOSINE 90 MG/30 ML INJ IV ONE
[2022-04-23 10:58] LABS: Urine Blood Negative /uL (Negative); Urine Specific Gravity 1.014 (1.001-1.035)
[2022-04-23 11:01] LABS: Basophils # (auto) 0 10 ^3/uL (0-0.2); Basophils % (auto) 0.6 % (0.0-2.0); Eosinophils # (auto) 0.2 10 ^3/uL (0-0.8); Eosinophils % (auto) 1.9 % (0.0-7.0); Hematocrit 42.5 % (41.0-53.0); Hemoglobin 14.5 g/dL (13.5-17.5); Lymphocytes # (auto) 1.9 10 ^3/uL (0.4-5.4); Lymphocytes % (auto) 22.1 % (10.0-50.0); Mean Corpuscular Hemoglobin 30.3 pg (28.0-32.0); Mean Corpuscular Hgb Conc. 34.2 g/dL (32.0-36.0); Mean Corpuscular Volume 88.8 fL (80.0-100.0); Monocytes # (auto) 0.8 10 ^3/uL (0-1.3); Neutrophils # (auto) 5.5 10 ^3/uL (1.6-8.6); Neutrophils % (auto) 65.4 % (37.0-80.0); Nucleated Red Blood Cells % 0.1 %; Red Blood Cells 4.79 10^6/uL (4.5-5.90); Red Cell Distribution Width 14.7 % (11.8-14.3); White Blood Cell 8.4 10^3/uL (4.4-10.8)
[2022-04-23 11:28] LABS: Albumin 3.8 g/dL (3.4-5.0); Potassium 3.9 mmol/L (3.5-5.1)
[2022-04-23 11:33] LABS: Free T4 (Free Thyroxine) 1.53 ng/dL (0.89-1.76); Prostate Specific Antigen 0.67 ng/mL (0.0-4.0)
[2022-04-23 11:41] LABS: BUN/Creatinine Ratio 12.4; Bilirubin, Total 0.6 mg/dL (0.2-1.0); Calcium 9.1 mg/dL (8.5-10.1); Total Protein 7.3 g/dL (6.4-8.2)
== END | disposition home or self-care (01) ==
LOC: LAB 10:18
PROVIDERS: ATTEND Internal Medicine Cardiovascular Disease
DX: C61 Malignant neoplasm of prostate (principal); R00.2 Palpitations; R53.1 Weakness; I10 Essential (primary) hypertension; D51.3 Other dietary vitamin B12 deficiency anemia; D64.9 Anemia, unspecified; E11.9 Type 2 diabetes mellitus without complications; E55.9 Vitamin D deficiency, unspecified; R30.0 Dysuria
CPT/HCPCS: 36415; 80053; 80061; 81003; 82306; 82607; 83036; 84153; 84403; 84439; 84443; 85025

== ENCOUNTER 2022-05-31 15:50 | Emergency (ER) | payer MEDICARE, OTHER ==
[~2022-05-31] VITALS: Ht 170.2 cm; Wt 63.6 kg
[2022-05-31 19:35] VITALS: BP 154/80
== END 2022-05-31 19:42 | disposition home or self-care (01) ==
LOC: ER 15:50 → EDBD 15:50 → ER 19:42
DX: S00.31XA Abrasion of nose, initial encounter (principal); S00.81XA Abrasion of other part of head, initial encounter; S80.212A Abrasion, left knee, initial encounter; K21.9 Gastro-esophageal reflux disease without esophagitis; E78.5 Hyperlipidemia, unspecified; I10 Essential (primary) hypertension; R51.9 Headache, unspecified; Z87.891 Personal history of nicotine dependence; Z86.73 Personal history of transient ischemic attack (TIA), and cerebral infarction without residual deficits; W01.0XXA Fall on same level from slipping, tripping and stumbling without subsequent striking against object, initial encounter; Y93.89 Activity, other specified; Y92.89 Other specified places as the place of occurrence of the external cause; Y99.8 Other external cause status
CPT/HCPCS: 70450

== ENCOUNTER → 2022-08-02 | Outpatient (CLI) | payer MEDICARE, OTHER ==
[~2022-08-02] MED LIST changes: +FENO160T PO; -FENO160T8 PO
== END | disposition home or self-care (01) ==
LOC: Rad HDHVI 13:00
PROVIDERS: ATTEND Internal Medicine Cardiovascular Disease
DX: I08.3 Combined rheumatic disorders of mitral, aortic and tricuspid valves (principal); I10 Essential (primary) hypertension; E78.5 Hyperlipidemia, unspecified
CPT/HCPCS: 93306

== ENCOUNTER → 2022-08-22 | Outpatient (CLI) | payer MEDICARE, OTHER ==
[~2022-08-22] VITALS: Ht 162.6 cm; Wt 64.9 kg
== END | disposition home or self-care (01) ==
LOC: Rad HDHVI 13:28
PROVIDERS: ATTEND Internal Medicine Cardiovascular Disease
DX: I11.0 Hypertensive heart disease with heart failure (principal); I50.21 Acute systolic (congestive) heart failure; I25.2 Old myocardial infarction; I73.9 Peripheral vascular disease, unspecified; E78.2 Mixed hyperlipidemia; I25.10 Atherosclerotic heart disease of native coronary artery without angina pectoris
CPT/HCPCS: 78472; 96374; 96375; A9505

== ENCOUNTER → 2022-11-21 | Outpatient (CLI) | payer MEDICARE, OTHER ==
[2022-11-21 10:51] LABS: Basophils # (auto) 0 10 ^3/uL (0-0.2); Basophils % (auto) 0.4 % (0.0-2.0); Eosinophils # (auto) 0.1 10 ^3/uL (0-0.8); Eosinophils % (auto) 1.7 % (0.0-7.0); Hematocrit 44.3 % (41.0-53.0); Hemoglobin 15.2 g/dL (13.5-17.5); Lymphocytes # (auto) 1.5 10 ^3/uL (0.4-5.4); Lymphocytes % (auto) 21.8 % (10.0-50.0); Mean Corpuscular Hemoglobin 30.9 pg (28.0-32.0); Mean Corpuscular Hgb Conc. 34.4 g/dL (32.0-36.0); Mean Corpuscular Volume 89.8 fL (80.0-100.0); Monocytes # (auto) 0.7 10 ^3/uL (0-1.3); Monocytes % (auto) 10.6 % (0.0-12.0); Neutrophils # (auto) 4.5 10 ^3/uL (1.6-8.6); Neutrophils % (auto) 65.5 % (37.0-80.0); Nucleated Red Blood Cells % 0.1 %; Red Blood Cells 4.93 10^6/uL (4.5-5.90); Red Cell Distribution Width 16.1 % (11.8-14.3); White Blood Cell 6.9 10^3/uL (4.4-10.8)
[2022-11-21 11:55] LABS: Alanine Aminotransferase 39 U/L (7-40); Albumin 4.6 g/dL (3.2-4.8); Alkaline Phosphatase 98 U/L (46-116); Anion Gap 5 (5-15); Aspartate Aminotransferase 21 U/L (13-40); BUN/Creatinine Ratio 9.2 (10.0-20.0); Bilirubin, Total 1.1 mg/dL (0.2-1.0); Blood Urea Nitrogen 9 mg/dL (9-23); Calcium 9.4 mg/dL (8.7-10.4); Carbon Dioxide 30 mmol/L (20-30); Chloride 109 mmol/L (98-107); Glucose 115 mg/dL (74-106); Potassium 3.8 mmol/L (3.5-5.1); Sodium 144 mmol/L (136-145); Total Protein 6.8 g/dL (5.7-8.2)
[2022-11-21 13:44] LABS: Triglycerides 121 mg/dL (< 150)
[2022-11-21 13:45] LABS: LDL Cholesterol 77 mg/dL (< 100)
[2022-11-21 13:46] LABS: Bilirubin, Direct 0.3 mg/dL (<0.3); Cholesterol 140 mg/dL (< 200); HDL Cholesterol 41 mg/dL (40-59)
== END | disposition home or self-care (01) ==
LOC: LAB 10:30
PROVIDERS: ATTEND Internal Medicine Cardiovascular Disease
DX: C61 Malignant neoplasm of prostate (principal); E11.9 Type 2 diabetes mellitus without complications; I10 Essential (primary) hypertension; R53.1 Weakness; D51.3 Other dietary vitamin B12 deficiency anemia; R00.2 Palpitations; R30.0 Dysuria; D64.9 Anemia, unspecified; E55.9 Vitamin D deficiency, unspecified
CPT/HCPCS: 36415; 80048; 80061; 80076; 82306; 83036; 84153; 84403; 84443; 85025; 87086

== ENCOUNTER → 2023-01-06 | Outpatient (CLI) | payer MEDICARE, OTHER ==
[~2023-01-06] MED LIST changes: +KETOROLAC TROMETH 60MG/2ML VIAL IM ONE; +KETOROLAC TROMETH 60MG/2ML VIAL ONE
[2023-01-06 10:25] VITALS: BP 108/64; PULSE 92; RESP 16; O2SAT 94
[2023-01-06 11:15] VITALS: BP 133/73; PULSE 79; RESP 16; O2SAT 94
== END | disposition home or self-care (01) ==
LOC: CHF HDHVI 10:30
PROVIDERS: ATTEND Internal Medicine Cardiovascular Disease
DX: S40.922A Unspecified superficial injury of left upper arm, initial encounter (principal); R52 Pain, unspecified; X58.XXXA Exposure to other specified factors, initial encounter; Y93.89 Activity, other specified; Y92.89 Other specified places as the place of occurrence of the external cause; Y99.8 Other external cause status
CPT/HCPCS: G0463; J1885

== ENCOUNTER 2023-05-05 22:03 | Emergency (ER) | payer MEDICARE, OTHER ==
[~2023-05-05] VITALS: Ht 167.6 cm; Wt 68.0 kg
[~2023-05-05 22:03] MED LIST changes: -KETOROLAC TROMETH 60MG/2ML VIAL IM ONE; -KETOROLAC TROMETH 60MG/2ML VIAL ONE
[2023-05-05 22:26] LABS: Basophils # (auto) 0 10 ^3/uL (0-0.2); Basophils % (auto) 0.4 % (0.0-2.0); Eosinophils # (auto) 0.2 10 ^3/uL (0-0.8); Eosinophils % (auto) 2.4 % (0.0-7.0); Hematocrit 42.6 % (41.0-53.0); Hemoglobin 14.2 g/dL (13.5-17.5); Lymphocytes # (auto) 1.8 10 ^3/uL (0.4-5.4); Lymphocytes % (auto) 23.3 % (10.0-50.0); Mean Corpuscular Hemoglobin 30.5 pg (28.0-32.0); Mean Corpuscular Hgb Conc. 33.5 g/dL (32.0-36.0); Mean Corpuscular Volume 91.2 fL (80.0-100.0); Monocytes # (auto) 0.8 10 ^3/uL (0-1.3); Monocytes % (auto) 9.9 % (0.0-12.0); Nucleated Red Blood Cells % 0.1 %; Red Blood Cells 4.67 10^6/uL (4.5-5.90); Red Cell Distribution Width 14.9 % (11.8-14.3); White Blood Cell 7.7 10^3/uL (4.4-10.8)
[2023-05-05 22:39] LABS: Alanine Aminotransferase 33 U/L (7-40); Alkaline Phosphatase 84 U/L (46-116); Anion Gap 3 (5-15); Aspartate Aminotransferase 23 U/L (13-40); BUN/Creatinine Ratio 10.8 (10.0-20.0); Blood Urea Nitrogen 11 mg/dL (9-23); Calcium 9.2 mg/dL (8.5-10.1); Carbon Dioxide 30 mmol/L (20-30); Chloride 110 mmol/L (98-107); Glucose 136 mg/dL (74-106); Potassium 3.8 mmol/L (3.5-5.1); Sodium 143 mmol/L (136-145)
[2023-05-05 22:40] LABS: Bilirubin, Total 0.6 mg/dL (0.2-1.0)
[2023-05-05 23:00] VITALS: BP 150/72; PULSE 71; RESP 20; TEMP 97.8; O2SAT 95
[2023-05-06 01:01] VITALS: PULSE 64
== END 2023-05-06 01:39 | disposition home or self-care (01) ==
LOC: ER 22:03 → EDBD 22:03 → ER 05-06 01:39
DX: R07.9 Chest pain, unspecified (principal); K21.9 Gastro-esophageal reflux disease without esophagitis; E78.5 Hyperlipidemia, unspecified; I10 Essential (primary) hypertension; Z86.73 Personal history of transient ischemic attack (TIA), and cerebral infarction without residual deficits; Z87.891 Personal history of nicotine dependence
CPT/HCPCS: 36415; 71045; 80053; 84484; 85025; 93005

== ENCOUNTER 2023-05-29 06:59 | Day surgery (SDC) | payer MEDICARE, OTHER ==
[2023-05-28 11:34] LABS: Basophils # (auto) 0 10 ^3/uL (0-0.2); Basophils % (auto) 0.3 % (0.0-2.0); Eosinophils # (auto) 0.1 10 ^3/uL (0-0.8); Eosinophils % (auto) 1.3 % (0.0-7.0); Hematocrit 44.6 % (41.0-53.0); Hemoglobin 15.3 g/dL (13.5-17.5); Lymphocytes % (auto) 21.2 % (10.0-50.0); Mean Corpuscular Hgb Conc. 34.3 g/dL (32.0-36.0); Mean Corpuscular Volume 90.4 fL (80.0-100.0); Monocytes % (auto) 10.2 % (0.0-12.0); Neutrophils # (auto) 6.3 10 ^3/uL (1.6-8.6); Nucleated Red Blood Cells % 0.3 %; Red Blood Cells 4.94 10^6/uL (4.5-5.90); Red Cell Distribution Width 15.2 % (11.8-14.3); White Blood Cell 9.4 10^3/uL (4.4-10.8)
[2023-05-28 11:52] LABS: INR 1.09 (0.9-1.15); Partial Thromboplastin Time 26.3 SEC (24.5-34.5); Prothrombin Time 11.4 sec (9.3-11.8)
[2023-05-28 12:07] LABS: Anion Gap 0 (5-15); Carbon Dioxide 32 mmol/L (20-30); Chloride 108 mmol/L (98-107); Potassium 4.6 mmol/L (3.5-5.1); Sodium 140 mmol/L (136-145)
[2023-05-28 12:08] LABS: Calcium 9.7 mg/dL (8.7-10.4)
[2023-05-28 12:13] LABS: Blood Urea Nitrogen 11 mg/dL (9-23); Glucose 94 mg/dL (74-106)
[2023-05-28 12:15] LABS: BUN/Creatinine Ratio 9.9 (10.0-20.0)
[2023-05-29] VITALS (7 sets, daily range): BP systolic 121–149; BP diastolic 72–79; PULSE 60–74; RESP 13–20; O2SAT 92–94
[~2023-05-29] VITALS: Ht 162.6 cm; Wt 62.1 kg
[~2023-05-29 06:59] MED LIST changes: +ALLO300T2 PO; -ASPI-123 OR; +DRON400T PO; -FENO160T PO; +FINA5TAB4 PO; +GABA-1250 PO; +IBUP-1454 PO; +LORA-622 PO; -MULT-13 OR; +MULT-195 OR; +SILD100T PO; +TAMS-35 PO; +VERI2.5T PO
[2023-05-29] MEDS ORDERED: LIDOCAINE 2%HCL (LOCAL ANESTH.) INJ 20ML MDV ONE (08:03)
[2023-05-29] MEDS ORDERED: IOHEXOL 350 MG/ML 100ML IJ ONE (08:04)
[2023-05-29] MEDS ORDERED: fentaNYL CITRATE 100 MCG/2 ML VL ONE (10:04)
[2023-05-29] MEDS ORDERED: MIDAZOLAM HCL 2MG/2ML 2ml VIAL (1mg/ml) ONE (10:04)
[2023-05-29] MEDS ORDERED: ANGIOMAX 250 MG VIAL IV ONE (10:04)
[2023-05-29] MEDS ORDERED: SODIUM CHL 0.9% 0 ML ONE (10:05)
== END 2023-05-29 13:32 | disposition home or self-care (01) ==
LOC: CATH 06:59
PROVIDERS: ATTEND Internal Medicine Cardiovascular Disease
DX: I25.10 Atherosclerotic heart disease of native coronary artery without angina pectoris (principal); R06.02 Shortness of breath; R07.9 Chest pain, unspecified; I10 Essential (primary) hypertension; I48.0 Paroxysmal atrial fibrillation; I25.2 Old myocardial infarction; I73.9 Peripheral vascular disease, unspecified; E78.5 Hyperlipidemia, unspecified; K21.9 Gastro-esophageal reflux disease without esophagitis; M19.90 Unspecified osteoarthritis, unspecified site; Z79.899 Other long term (current) drug therapy; Z95.828 Presence of other vascular implants and grafts; Z95.5 Presence of coronary angioplasty implant and graft; Z87.09 Personal history of other diseases of the respiratory system; Z98.890 Other specified postprocedural states; Z87.891 Personal history of nicotine dependence; Z84.1 Family history of disorders of kidney and ureter; Z82.49 Family history of ischemic heart disease and other diseases of the circulatory system; Z83.3 Family history of diabetes mellitus
CPT/HCPCS: 36415; 80048; 85025; 85610; 85730; 93458; 93571; C1760; C1894; J1644; J2250; J3010; J7030; Q9967; 99152

== ENCOUNTER → 2023-09-29 | Outpatient (CLI) | payer MEDICARE, OTHER | END | disposition home or self-care (01) | LOC: Rad HDHVI 09:52 | PROVIDERS: ATTEND Internal Medicine Cardiovascular Disease | DX: I10 Essential (primary) hypertension (principal); R42 Dizziness and giddiness | CPT/HCPCS: 93306 ==

== ENCOUNTER → 2024-02-04 | Outpatient (CLI) | payer MEDICARE, OTHER ==
[~2024-02-04] MED LIST changes: +MULTIPLE VIT 10 ML IV ONE; +READI-CAT 2 (BARIUM SULF)(VANILLA SMOOTHIE) 450ML ONE
--- NOTE | 2024-02-04 12:56 | DVH ---
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 TECHNIQUE: Axial CT images of the abdomen and pelvis were obtained without IV contrast. Coronal and sagittal reformatted images were obtained, reviewed, and stored. Patient ingested GI contrast prior t o the examination. All CT scans at this medical facility are performed using dose modulation techniqu es as appropriate to a performed exam including the following: Automated exposure control was utilize d; adjustment of the MA and/or KV according to patient size; and use of iterative reconstruction tech nique. CTDIvol = 4.93 mGy DLP = 236.4 mGy-cm COMPARISON: None FINDINGS: Lung bases: Atelectasis in the lung bases. Liver: Grossly unremarkable in its noncontrast enhanced appearance. No abnormal density or focal les ion identified. Biliary: No calcified gallstones or biliary ductal dilatation. Spleen: Unremarkable. Pancreas: Moderately atrophic pancreas. Adrenal glands: Unremarkable. No mass. Kidneys: Hydronephrosis. Right renal cysts, with the largest measuring up to 1.8 cm. Bilateral nonob structing renal calculi, with the largest in the upper pole of the left kidney measuring up to 0.7 cm . Aorta/Vascular: Dense arterial calcification. No abdominal aortic aneurysm. Retroperitoneum: No mass or lymphadenopathy. Bowel/mesentery: Dilated small bowel loops are seen in the lower abdomen, with somewhat gradual trans ition to nondilated small bowel loops more distally, may be due to ileus or enteritis. Areas of smal l-bowel wall thickening also noted. Appendix is visualized and appears unremarkable. Scattered colon ic diverticula without adjacent inflammatory changes to suggest diverticulitis. Pelvic organs: Grossly unremarkable. Bladder: Unremarkable. No mass. Abdominal wall: No mass or hernia. Bones: No acute fracture or suspicious intraosseous lesion. IMPRESSION: 1. Dilated small bowel loops in the lower abdomen with gradual transition to nondilated more distal s mall bowel, likely due to ileus or enteritis in the appropriate clinical setting. There is some wall thickening involving the small bowel loops in the lower abdomen. Correlate with clinical findings. 2. Colonic diverticulosis with no CT evidence for diverticulitis. 3. Bilateral nonobstructing renal calculi. No hydronephrosis or obstructing calculi. 4. Right renal cysts. 5. Additional findings as detailed above.
== END | disposition home or self-care (01) ==
LOC: Rad HDHVI 11:37
PROVIDERS: ATTEND Internal Medicine Cardiovascular Disease
DX: N13.2 Hydronephrosis with renal and ureteral calculous obstruction (principal); K57.30 Diverticulosis of large intestine without perforation or abscess without bleeding; N28.1 Cyst of kidney, acquired; K86.89 Other specified diseases of pancreas; K56.699 Other intestinal obstruction unspecified as to partial versus complete obstruction
CPT/HCPCS: 74176

== ENCOUNTER → 2024-02-06 | Outpatient (CLI) | payer MEDICARE, OTHER ==
[~2024-02-06] MED LIST changes: -MULTIPLE VIT 10 ML IV ONE; -READI-CAT 2 (BARIUM SULF)(VANILLA SMOOTHIE) 450ML ONE
[2024-02-06 10:50] VITALS: BP 152/80; PULSE 60; RESP 18; O2SAT 95
[2024-02-06] MEDS: MVI in SODIUM CHLORIDE 0.9% 500 ML IVB ONE (11:12)
[2024-02-06] MEDS: MULTIPLE VIT 10 ML IV ONE (11:43)
--- NOTE | 2024-02-06 11:53 | DVH ---
Date: 02/06/2024 12:44 PM Examination: XY KUB ABDOMEN SINGLE VIEW History: SMALL BOWEL OBSTRUCTION Comparison: None TECHNIQUE: Frontal views of the abdomen was obtained. FINDINGS: Bowel gas pattern is unremarkable. The lung bases are unremarkable. No acute osseous abnormality identified. Contrast seen in the colon. IMPRESSION: Nonobstructive bowel gas pattern. Contrast seen in the colon.
[2024-02-06] MEDS: LACTULOSE 20Gm/30ML SOLN ONE (14:06)
[2024-02-06] MEDS: LACTULOSE 20Gm/30ML SOLN PO ONE (14:09)
[2024-02-06 14:11] VITALS: BP 159/76; PULSE 65; RESP 16; O2SAT 95
== END | disposition home or self-care (01) ==
LOC: Rad HDHVI 11:05
PROVIDERS: ATTEND Internal Medicine Cardiovascular Disease
DX: E86.0 Dehydration (principal); K56.609 Unspecified intestinal obstruction, unspecified as to partial versus complete obstruction; K59.00 Constipation, unspecified; K57.30 Diverticulosis of large intestine without perforation or abscess without bleeding
CPT/HCPCS: 74018; 96365; 96366; G0463; J7040; 96360; 96361

== ENCOUNTER 2024-02-15 23:35 | Emergency (ER) | payer MEDICARE, OTHER ==
[~2024-02-15] VITALS: Ht 167.6 cm; Wt 72.7 kg
--- NOTE | 2024-02-15 23:42 | ED.PDOC ---
History of Present Illness HPI Comments 88-year-old male brought in by EMS presets with a chief complaint of cough, SOB, and nose congestion. Patient states that he has been having flu-like symptoms of nasal congestion and non-productive cough for the past x 2 days. Patient mentions that tonight he felt like he couldn't catch his breath and decided to call 911. Patient is sating at 94% on room air, no supplemental oxygen use at home. Per EMS, all other vital signs stable. Time Seen by MD: 23:37 Primary Care Provider: MOOKIE Reviewed Notes: Medications, Allergies Allergies: Coded Allergies: NO KNOWN ALLERGIES (Unverified , 05/28/23) Home Meds Reported Medications Loratadine (Claritin) 10 Mg Tab, 1 TAB PO DAILY for allergies, #30 TAB 5 Refills 05/28/23 Sildenafil Citrate (Viagra) 100 Mg Tab, 1 TAB PO DAILYP for circulation, #6 TAB 11 Refills 05/28/23 Vericiguat (Verquvo) 2.5 Mg Tab, 2.5 MG PO BID for CIRCULATION, TAB 05/28/23 Ibuprofen (Ibuprofen) 600 Mg Tab, 600 MG PO Q6HP PRN for PAIN SCALE 1 THRU 6, MG 0 Refills 05/28/23 Allopurinol (Allopurinol) 300 Mg Tab, 300 MG PO DAILY for GOUT, MG 05/28/23 Tamsulosin Hcl (Flomax) 0.4 Mg Cap, 0.4 MG PO DAILY for BPH, CAP 05/28/23 Multiple Vitamins W/ Minerals (PRESERVISION AREDS) Areds Tab, 1 OR BID for EYE HEALTH, TAB 05/28/23 Gabapentin (Gabapentin) 300 Mg Cap, 300 MG PO BID for NEUROPATHY, MG 05/28/23 Dronedarone Hydrochloride (Multaq) 400 Mg Tab, 1 TAB PO BID for A. FIB, #180 TAB 1 Refill 05/28/23 Finasteride (Finasteride) 5 Mg Tab, 1 TAB PO DAILY for urinary retention, #30 TAB 11 Refills 05/28/23 Fenofibrate (Tricor) 145 Mg Tab, 145 MG PO DAILY, TAB 09/22/16 Multiple Vitamins W/ Minerals (Icaps) Cap, 1 OR DAILY, CAP 08/01/16 Clopidogrel Bisulfate (Plavix) 75 Mg Tab, 1 TAB PO DAILY, #90 TAB 1 Refill 07/31/16 Information Source: Patient, Emergency Med Personnel Mode of Arrival: EMS Severity: Moderate Timing: Minutes Duration: Since onset Prehospital treatment: None Past Medical History PAST MEDICAL HISTORY: AFIB, Arthritis, CAD, CVA, GERD, High Lipids, HTN, [place], TIA Surgical History: Hernia Repair, PTCA Family History Family History: Reviewed,noncontributory to illness, No family hx of Heart dandre Social History Smoker: Quit Greater Than 1 Year Alcohol: Rarely Drugs: Denies Drug Use Lives In: Home Constitutional: denies: chills, diaphoresis, fatigue, fever, malaise, sweats, weakness, others EENTM: reports: nose congestion; denies: blurred vision, double vision, ear bleeding, ear discharge, ear drainage, ear pain, ear ringing, eye pain, eye redness, hearing loss, mouth pain, mouth swelling, nasal discharge, nose bleeding, nose pain, photophobia, tearing, throat pain, throat swelling, voice changes, others Respiratory: reports: cough, shortness of breath; denies: hemoptysis, orthopnea, SOB at rest, SOB with excertion, stridor, wheezing, others Cardiovascular: denies: chest pain, dizzy spells, diaphoresis, Dyspnea on exertion, edema, irregular heart beat, left arm pain, lightheadedness, palpitations, PND, syncope, others Gastrointestinal: denies: abdomen distended, abdominal pain, blood streaked bowels, constipated, diarrhea, dysphagia, difficulty swallowing, hematemesis, melena, nausea, poor appetite, poor fluid intake, rectal bleeding, rectal pain, vomiting, others Genitourinary: denies: burning, dysuria, flank pain, frequency, hematuria, incontinence, penile discharge, penile sore, pain, testicle pain, testicle swelling, urgency, others Neurological: denies: dizziness, fainting, headache, left sided numbness, left sided weakness, numbness, paresthesia, pre-existing deficit, right sided numbness, right sided weakness, seizure, speech problems, tingling, tremors, weakness, others Musculoskeletal: denies: back pain, gout, joint pain, joint swelling, muscle pain, muscle stiffness, neck pain, others Integumetry: denies: bruises, change in color, change in hair/nails, dryness, laceration, lesions, lumps, rash, wounds, others Allergic/Immunocompromised: denies: Difficulty Healing, Frequent Infections, Hives, Itching, others Hematologic/Lymphatic: denies: anemia, blood clots, easy bleeding, easy bruising, swollen glands, others Endocrine: denies: excessive hunger, excessive sweating, excessive thirst, excessive urination, flushing, intolerance to cold, intolerance to heat, unexplained weight gain, unexplained weight loss, others Psychiatric: denies: anxiety, bipolar disorder, depression, hopeless, panic disorder, schizophrenia, sleepless, suicidal, others All Other Systems: Reviewed and Negative Physical Exam General Appearance: No Apparent Distress, Normal HEENT: Normal ENT Inspection, Pharynx Normal, TMs Normal Neck: Full Range of Motion, Non-Tender, Normal, Normal Inspection Respiratory: Chest Non-Tender, Lungs Clear, No Accessory Muscle Use, No Respiratory Distress, Normal Breath Sounds Cardiovascular: No Edema, No JVD, No Murmur, No Gallop, Normal Peripheral Pulses, Regular Rate/Rhythm Breast Exam: Deferred Gastrointestinal: No Organomegaly, Non Tender, No Pulsatile Mass, Normal Bowel Sounds, Soft Genitalia: Deferred Pelvic: Deferred Rectal: Deferred Extremities: No calf tenderness, Normal capillary refill, Normal inspection, Normal range of motion, Non-tender, No pedal edema Musculoskeletal : Apperance: Normal Neurologic: Alert, policy service coordinator II-XII nml as Tested, No Motor Deficits, Normal Affect, Normal Mood, No Sensory Deficits Cerebellar Function: Normal Reflexes: Normal Skin: Dry, Normal Color, Warm Lymphatic: No Adenopathy Was a procedure done? Was a procedure done?: No Differential Dx Considerations may include: Pneumonia, viral syndrome, URI X-Ray, Labs, Meds, VS Vital Signs Date Time Temp Pulse Resp B/P (MAP) Pulse Ox O2 Delivery O2 Flow Rate FiO2 02/16/24 01:35 98.1 74 16 140/66 (90) 96 98.1 02/16/24 01:35 74 16 96 Room Air 02/15/24 23:46 67 02/15/24 23:40 98.2 68 18 147/75 (99) 94 Lab Test 02/16/24 01:24 02/15/24 23:50 Range/Units Influenza Type A Antigen Negative Negative Influenza Type B Antigen Negative Negative SARS-CoV-2 Antigen (Rapid) Negative NEGATIVE White Blood Count 6.4 4.4-10.8 10^3/uL Red Blood Count 4.47 L 4.5-5.90 10^6/uL Hemoglobin 13.9 13.5-17.5 g/dL Hematocrit 40.6 L 41.0-53.0 % Mean Corpuscular Volume 90.8 80.0-100.0 fL Mean Corpuscular Hemoglobin 31.1 28.0-32.0 pg Mean Corpuscular Hemoglobin Concent 34.2 32.0-36.0 g/dL Red Cell Distribution Width 15.1 H 11.8-14.3 % Platelet Count 195 140-450 10^3/uL Mean Platelet Volume 7.2 6.9-10.8 fL Neutrophils (%) (Auto) 57.7 37.0-80.0 % Lymphocytes (%) (Auto) 24.2 10.0-50.0 % Monocytes (%) (Auto) 14.2 H 0.0-12.0 % Eosinophils (%) (Auto) 3.2 0.0-7.0 % Basophils (%) (Auto) 0.7 0.0-2.0 % Neutrophils # (Auto) 3.7 1.6-8.6 10 ^3/uL Lymphocytes # (Auto) 1.6 0.4-5.4 10 ^3/uL Monocytes # (Auto) 0.9 0-1.3 10 ^3/uL Eosinophils # (Auto) 0.2 0-0.8 10 ^3/uL Basophils # (Auto) 0 0-0.2 10 ^3/uL Nucleated Red Blood Cells 0.1 % Sodium Level 143 136-145 mmol/L Potassium Level 3.4 L 3.5-5.1 mmol/L Chloride Level 108 H 98-107 mmol/L Carbon Dioxide Level 28 20-31 mmol/L Anion Gap 7 5-15 Blood Urea Nitrogen 10 9-23 mg/dL Creatinine 0.89 0.700-1.30 mg/dL Glomerular Filtration Rate Calc 83 >90 mL/min BUN/Creatinine Ratio 11.2 10.0-20.0 Serum Glucose 103 74-106 mg/dL Calcium Level 9.2 8.7-10.4 mg/dL Troponin I High Sensitivity 4 </=54 ng/L Time of 1ST Reevaluation: 00:07 Reevaluation 1ST: Unchanged Patient Education/Counseling: Diagnosis, Treatment, Prognosis Family Education/Counseling: No Family Present Departure 1 Departure Time of Disposition: 02:30 (Patient's workup is benign. He is breathing comfortably and otherwise benign exam. He had likely has a virus. We will discharge patient home with outpatient follow up) Impression: Primary Impression: Viral syndrome Additional Impression: Congestion of nasal sinus Disposition: 01 HOME / SELF CARE / HOMELESS Condition: Stable Additional Instructions: You likely have a viral illness. It is important to stay well rested and well hydrated. You can take Tylenol and Motrin as needed for pain and fever. For a sore throat you can drink warm tea with honey. You can take [id number] pseudoephedrine for nasal congestion. He should follow up with your regular doctor within 1 week to ensure you are doing better. If your symptoms worsen or you have any other concerns please return to the emergency room. Discharged With: Self Critical Care Note Critical Care Time?: No Stability Stability form required: No I personally scribed for ASCENCION WALL MD ([email or web address]) on 02/15/24 at 23:42. Electronically submitted by Gagan Riddle ([email or web address]). ASCENCION WALL MD Feb 15, 2024 23:42
[2024-02-15 23:59] LABS: Basophils # (auto) 0 10 ^3/uL (0-0.2); Basophils % (auto) 0.7 % (0.0-2.0); Eosinophils # (auto) 0.2 10 ^3/uL (0-0.8); Eosinophils % (auto) 3.2 % (0.0-7.0); Hematocrit 40.6 % (41.0-53.0); Hemoglobin 13.9 g/dL (13.5-17.5); Lymphocytes # (auto) 1.6 10 ^3/uL (0.4-5.4); Lymphocytes % (auto) 24.2 % (10.0-50.0); Mean Corpuscular Hemoglobin 31.1 pg (28.0-32.0); Mean Corpuscular Hgb Conc. 34.2 g/dL (32.0-36.0); Mean Corpuscular Volume 90.8 fL (80.0-100.0); Monocytes # (auto) 0.9 10 ^3/uL (0-1.3); Monocytes % (auto) 14.2 % (0.0-12.0); Neutrophils # (auto) 3.7 10 ^3/uL (1.6-8.6); Neutrophils % (auto) 57.7 % (37.0-80.0); Nucleated Red Blood Cells % 0.1 %; Platelet Count (auto) 195 10^3/uL (140-450); Red Blood Cells 4.47 10^6/uL (4.5-5.90); Red Cell Distribution Width 15.1 % (11.8-14.3); White Blood Cell 6.4 10^3/uL (4.4-10.8)
[2024-02-16 00:08] LABS: Sodium 143 mmol/L (136-145)
[2024-02-16 00:09] LABS: Anion Gap 7 (5-15); Carbon Dioxide 28 mmol/L (20-31)
[2024-02-16 00:10] LABS: Calcium 9.2 mg/dL (8.7-10.4)
[2024-02-16 00:14] LABS: BUN/Creatinine Ratio 11.2 (10.0-20.0); Blood Urea Nitrogen 10 mg/dL (9-23); Glucose 103 mg/dL (74-106)
[2024-02-16 00:16] LABS: Potassium 3.4 mmol/L (3.5-5.1)
[2024-02-16 00:17] LABS: Chloride 108 mmol/L (98-107)
--- NOTE | 2024-02-16 00:33 | DVH ---
CHEST RADIOGRAPH Indication: sob Technique: Frontal and lateral view of the chest was obtained Comparison: XY CHEST TWO VIEWS ROUTINE on DOS: 05/28/23, RSHD2 on DOS: 12/04/21, RSHD2 on DOS: 10/05/21 FINDINGS: Lines and Tubes: None Lungs: Clear Pleura: No effusion. No pneumothorax. Cardiomediastinal contours: Unremarkable Bones: Unremarkable IMPRESSION: No evidence of acute disease.
[2024-02-16 01:35] VITALS: BP 140/66; PULSE 74; RESP 16; TEMP 98.1; O2SAT 96
[2024-02-16 02:06] LABS: COVID19 ANTIGEN SOFIA FIA NEGATIVE (NEGATIVE); Rapid Influenza A Negative (Negative); Rapid Influenza B Negative (Negative)
--- NOTE | 2024-02-16 02:39 | ECG ---
[facility] Test Date: 2024-02-15 Test Time: 23:46:24 Pat Name: ANTHONY SANCHEZ Department: ED Room: Gender: M Physiologist: : [id number] Requested By: ASCENCION WALL Order Number: [id number] Reading MD: Measurements Intervals [place] Rate: 67 P: 40 [place]: 172 QRS: 41 QRSD: 96 T: -15 QT: 430 QTc: 454 Interpretive Statements Sinus rhythm Low voltage, precordial leads Borderline T abnormalities, diffuse leads Please click the below link to view image of tracing.
== END 2024-02-16 02:43 | disposition home or self-care (01) ==
LOC: ER 23:35 → EDBD 23:35 → ER 02-16 02:43
DX: B34.9 Viral infection, unspecified (principal); R09.81 Nasal congestion; I10 Essential (primary) hypertension; I25.10 Atherosclerotic heart disease of native coronary artery without angina pectoris; I48.91 Unspecified atrial fibrillation; K21.9 Gastro-esophageal reflux disease without esophagitis; M19.90 Unspecified osteoarthritis, unspecified site; Z20.822 Contact with and (suspected) exposure to COVID-19; Z86.73 Personal history of transient ischemic attack (TIA), and cerebral infarction without residual deficits; Z98.890 Other specified postprocedural states; Z79.899 Other long term (current) drug therapy
CPT/HCPCS: 36415; 71046; 80048; 84484; 85025; 87426; 87804; 93005

== ENCOUNTER 2024-05-05 14:32 | Inpatient (IN) | payer MEDICARE, OTHER ==
[~2024-05-05] VITALS: Ht 162.6 cm; Wt 58.0 kg
--- NOTE | 2024-05-05 15:04 | ED.PDOC ---
History of Present Illness HPI Comments 89M BIBA w/ no prior Hx associated to the c/c of ABND pain. Pt had a fractured hip on his right side 4 days ago, and had a Sx done at [facility] where they transferred the pt to [facility] for physical Therapy. Pt started to complain of upper ABD pain and constipation but the nurses at the facility told the EMS that the pt had a bowel movement. Pt was given a [place] before EMS arrived on scene and currently has a pain rate of 2/10. PMHx of A-FIB, Arthritis, CAD, GERD, HTN, TIA, UTI, High Lipids, CVA and RI. SHx of PTCA and Hernia Repair. Denies chills, fever, N/V/D, SOB, CP or no other associated symptom's, modifiers, recent injuries or sick contact at this time. Chief Complaint: Abdominal Pain Time Seen by MD: 14:35 Primary Care Provider: MOOKIE Reviewed Notes: Nurses Notes, Retail Performance Specialist Notes, Medications, Allergies Allergies: Coded Allergies: NO KNOWN ALLERGIES (Unverified , 05/28/23) Home Meds Reported Medications Loratadine (Claritin) 10 Mg Tab, 1 TAB PO DAILY for allergies, #30 TAB 5 Refills 05/28/23 Sildenafil Citrate (Viagra) 100 Mg Tab, 1 TAB PO DAILYP for circulation, #6 TAB 11 Refills 05/28/23 Vericiguat (Verquvo) 2.5 Mg Tab, 2.5 MG PO BID for CIRCULATION, TAB 05/28/23 Ibuprofen (Ibuprofen) 600 Mg Tab, 600 MG PO Q6HP PRN for PAIN SCALE 1 THRU 6, MG 0 Refills 05/28/23 Allopurinol (Allopurinol) 300 Mg Tab, 300 MG PO DAILY for GOUT, MG 05/28/23 Tamsulosin Hcl (Flomax) 0.4 Mg Cap, 0.4 MG PO DAILY for BPH, CAP 05/28/23 Multiple Vitamins W/ Minerals (PRESERVISION AREDS) Areds Tab, 1 OR BID for EYE HEALTH, TAB 05/28/23 Gabapentin (Gabapentin) 300 Mg Cap, 300 MG PO BID for NEUROPATHY, MG 05/28/23 Dronedarone Hydrochloride (Multaq) 400 Mg Tab, 1 TAB PO BID for A. FIB, #180 TAB 1 Refill 05/28/23 Finasteride (Finasteride) 5 Mg Tab, 1 TAB PO DAILY for urinary retention, #30 TAB 11 Refills 05/28/23 Fenofibrate (Tricor) 145 Mg Tab, 145 MG PO DAILY, TAB 09/22/16 Multiple Vitamins W/ Minerals (Icaps) Cap, 1 OR DAILY, CAP 08/01/16 Clopidogrel Bisulfate (Plavix) 75 Mg Tab, 1 TAB PO DAILY, #90 TAB 1 Refill 07/31/16 Information Source: Patient, Emergency Med Personnel Mode of Arrival: EMS Severity: Moderate Timing: Hours Duration: Since onset, Hours Prehospital treatment: None Past Medical History PAST MEDICAL HISTORY: AFIB, Arthritis, CAD, CVA, GERD, High Lipids, HTN, RI, TIA Surgical History: Hernia Repair, PTCA Family History Family History: Reviewed,noncontributory to illness, Unknown Social History Smoker: Non-Smoker Alcohol: Denies ETOH Use Drugs: Denies Drug Use Lives In: Home Constitutional: denies: chills, diaphoresis, fatigue, fever, malaise, sweats, weakness, others EENTM: denies: blurred vision, double vision, ear bleeding, ear discharge, ear drainage, ear pain, ear ringing, eye pain, eye redness, hearing loss, mouth pain, mouth swelling, nasal discharge, nose bleeding, nose congestion, nose pain, photophobia, tearing, throat pain, throat swelling, voice changes, others Respiratory: denies: cough, hemoptysis, orthopnea, SOB at rest, shortness of breath, SOB with excertion, stridor, wheezing, others Cardiovascular: denies: chest pain, dizzy spells, diaphoresis, Dyspnea on exertion, edema, irregular heart beat, left arm pain, lightheadedness, palpitat ions, PND, syncope, others Gastrointestinal: reports: abdominal pain; denies: abdomen distended, blood streaked bowels, constipated, diarrhea, dysphagia, difficulty swallowing, hematemesis, melena, nausea, poor appetite, poor fluid intake, rectal bleeding, rectal pain, vomiting, others Genitourinary: denies: burning, dysuria, flank pain, frequency, hematuria, incontinence, penile discharge, penile sore, pain, testicle pain, testicle swelling, urgency, others Neurological: denies: dizziness, fainting, headache, left sided numbness, left sided weakness, numbness, paresthesia, pre-existing deficit, right sided numbness, right sided weakness, seizure, speech problems, tingling, tremors, weakness, others Musculoskeletal: denies: back pain, gout, joint pain, joint swelling, muscle p ain, muscle stiffness, neck pain, others Integumetry: denies: bruises, change in color, change in hair/nails, dryness, laceration, lesions, lumps, rash, wounds, others Allergic/Immunocompromised: denies: Difficulty Healing, Frequent Infections, Hives, Itching, others Hematologic/Lymphatic: denies: anemia, blood clots, easy bleeding, easy bruising, swollen glands, others Endocrine: denies: excessive hunger, excessive sweating, excessive thirst, excessive urination, flushing, intolerance to cold, intolerance to heat, unexplained weight gain, unexplained weight loss, others Psychiatric: denies: anxiety, bipolar disorder, depression, hopeless, panic disorder, schizophrenia, sleepless, suicidal, others All Other Systems: Reviewed and Negative Physical Exam General Appearance: Moderate Distress, Normal HEENT: Normal ENT Inspection, Pharynx Normal, TMs Normal Neck: Full Range of Motion, Non-Tender, Normal, Normal Inspection Respiratory: Chest Non-Tender, Lungs Clear, No Accessory Muscle Use, No Respiratory Distress, Normal Breath Sounds Cardiovascular: No Edema, No JVD, No Murmur, No Gallop, Normal Peripheral Pulses, Regular Rate/Rhythm Breast Exam: Deferred Gastrointestinal: No Organomegaly, Non Tender, No Pulsatile Mass, Normal Bowel Sounds, Soft Genitalia: Deferred Pelvic: Deferred Rectal: Deferred Extremities: No calf tenderness, Normal capillary refill, No pedal edema Musculoskeletal : Apperance: Normal Neurologic: Alert, dredge or barge shore hand II-XII nml as Tested, No Motor Deficits, Normal Affect, Normal Mood, No Sensory Deficits Cerebellar Function: NOT DONE Reflexes: NOT DONE Skin: Dry, Normal Color, Warm Peripheral Pulses: 3+ Radial (R), 3+ Radial (L) Lymphatic: No Adenopathy Was a procedure done? Was a procedure done?: No Differential Dx Considerations may include: Pneumonia Electrolyte imbalance X-Ray, Labs, Meds, VS Vital Signs Date Time Temp Pulse Resp B/P (MAP) Pulse Ox O2 Delivery O2 Flow Rate FiO2 05/05/24 14:58 98.1 63 16 128/67 (87) 98 Lab Test 05/05/24 14:47 Range/Units White Blood Count 9.4 4.4-10.8 10^3/uL Red Blood Count 4.45 L 4.5-5.90 10^6/uL Hemoglobin 13.4 L 13.5-17.5 g/dL Hematocrit 39.7 L 41.0-53.0 % Mean Corpuscular Volume 89.4 80.0-100.0 fL Mean Corpuscular Hemoglobin 30.2 28.0-32.0 pg Mean Corpuscular Hemoglobin Concent 33.8 32.0-36.0 g/dL Red Cell Distribution Width 15.3 H 11.8-14.3 % Platelet Count 367 140-450 10^3/uL Mean Platelet Volume 7.8 6.9-10.8 fL Neutrophils (%) (Auto) 72.4 37.0-80.0 % Lymphocytes (%) (Auto) 15.5 10.0-50.0 % Monocytes (%) (Auto) 9.1 0.0-12.0 % Eosinophils (%) (Auto) 2.6 0.0-7.0 % Basophils (%) (Auto) 0.4 0.0-2.0 % Neutrophils # (Auto) 6.8 1.6-8.6 10 ^3/uL Lymphocytes # (Auto) 1.5 0.4-5.4 10 ^3/uL Monocytes # (Auto) 0.9 0-1.3 10 ^3/uL Eosinophils # (Auto) 0.2 0-0.8 10 ^3/uL Basophils # (Auto) 0 0-0.2 10 ^3/uL Nucleated Red Blood Cells 0.0 % Sodium Level 140 136-145 mmol/L Potassium Level 4.1 3.5-5.1 mmol/L Chloride Level 103 98-107 mmol/L Carbon Dioxide Level 29 20-31 mmol/L Anion Gap 8 5-15 Blood Urea Nitrogen 14 9-23 mg/dL Creatinine 0.69 L 0.700-1.30 mg/dL Glomerular Filtration Rate Calc 90 >90 mL/min BUN/Creatinine Ratio 20.3 H 10.0-20.0 Serum Glucose 112 H 74-106 mg/dL Calcium Level 9.6 8.7-10.4 mg/dL Troponin I High Sensitivity 43 </=54 ng/L Patient alert. Complaining of abdominal pain. Vitals stable. Answering all questions. Abdominal pain could be from the lung. Cardiac marker within normal limits pain Chest x-ray reviewed does show pneumonia. CT of the abdomen reviewed does show constipation with the lung cut showing pneumonia. Establish intravenous access. Was given Rocephin. Was given azithromycin. Explained to the patient. Continue monitoring. Time of 1ST Reevaluation: 15:05 Reevaluation 1ST: Unchanged Patient Education/Counseling: Diagnosis, Treatment, Prognosis Family Education/Counseling: No Family Present Departure 1 Departure Time of Disposition: 15:34 Impression: Primary Impression: Pneumonia Qualified Codes: J18.9 - Pneumonia, unspecified organism Additional Impression: Acute abdominal pain Disposition: ADMITTED INPATIENT Admit to: Med Surg Condition: Guarded Critical Care Note Critical Care Time?: No Stability Stability form required: No Heart Score Heart Score: Heart Score Response (Comments) Value History Slightly Suspicious 0 EKG Normal 0 Age >65 2 Risk Factors >3 or Hx ASHD 2 Troponin Normal limit 0 Total 4 I personally scribed for MATHEUS EDWARDS MD ([email or web address]) on 05/05/24 at 15:04. Electronically submitted by Gianfranoc Stearns ([email or web address]). MATHEUS EDWARDS MD May 05, 2024 15:04
[2024-05-05 15:12] LABS: Basophils # (auto) 0 10 ^3/uL (0-0.2); Basophils % (auto) 0.4 % (0.0-2.0); Eosinophils # (auto) 0.2 10 ^3/uL (0-0.8); Eosinophils % (auto) 2.6 % (0.0-7.0); Hematocrit 39.7 % (41.0-53.0); Hemoglobin 13.4 g/dL (13.5-17.5); Lymphocytes # (auto) 1.5 10 ^3/uL (0.4-5.4); Lymphocytes % (auto) 15.5 % (10.0-50.0); Mean Corpuscular Hemoglobin 30.2 pg (28.0-32.0); Mean Corpuscular Hgb Conc. 33.8 g/dL (32.0-36.0); Mean Corpuscular Volume 89.4 fL (80.0-100.0); Monocytes # (auto) 0.9 10 ^3/uL (0-1.3); Monocytes % (auto) 9.1 % (0.0-12.0); Neutrophils # (auto) 6.8 10 ^3/uL (1.6-8.6); Neutrophils % (auto) 72.4 % (37.0-80.0); Platelet Count (auto) 367 10^3/uL (140-450); Red Blood Cells 4.45 10^6/uL (4.5-5.90); Red Cell Distribution Width 15.3 % (11.8-14.3); White Blood Cell 9.4 10^3/uL (4.4-10.8)
[2024-05-05 15:26] LABS: Chloride 103 mmol/L (98-107); Potassium 4.1 mmol/L (3.5-5.1); Sodium 140 mmol/L (136-145)
[2024-05-05 15:27] LABS: Anion Gap 8 (5-15); Calcium 9.6 mg/dL (8.7-10.4); Carbon Dioxide 29 mmol/L (20-31)
[2024-05-05 15:32] LABS: BUN/Creatinine Ratio 20.3 (10.0-20.0); Blood Urea Nitrogen 14 mg/dL (9-23)
--- NOTE | 2024-05-05 15:33 | DVH ---
EXAM: XR Chest, 1 View CLINICAL INDICATION: sob TECHNIQUE: Frontal view of the chest. COMPARISON: XY CHEST PORTABLE on DOS: 05/05/23, XY CHEST PORTABLE on DOS: 06/25/22, XY CHEST PORTABLE on DOS: 06/23/22, RHUM on DOS: 10/05/21 FINDINGS: LUNGS AND PLEURAL SPACES: Bibasilar atelectasis or pneumonia. No pneumothorax. HEART: Unremarkable. No cardiomegaly. MEDIASTINUM: Unremarkable. Normal mediastinal contour. BONES/JOINTS: Unremarkable. No acute fracture. OTHER FINDINGS: . IMPRESSION: Bibasilar atelectasis or pneumonia.
[2024-05-05 15:35] LABS: Glucose 112 mg/dL (74-106)
--- NOTE | 2024-05-05 16:26 | DVH ---
EXAM: CT Abdomen and Pelvis Without Intravenous Contrast CLINICAL INDICATION: colitis TECHNIQUE: Axial computed tomography images of the abdomen and pelvis without intravenous contrast. This CT exam was performed using one or more of the following dose reduction techniques: automated exposure control, adjustment of the mA and/or kV according to patient size, and/or use of iterative r econstruction technique. CONTRAST: RADIATION DOSE: CTDIvol = 5.76 mGy, DLP = 316.06 mGy-cm COMPARISON: CT CT AB PEL WITH ORAL CON ONLY on DOS: 02/04/24 FINDINGS: LUNG BASES: Bibasilar atelectasis or pneumonia. MEDIASTINUM: Small esophageal hiatal hernia. ABDOMEN: LIVER: Fatty infiltration of the liver. GALLBLADDER AND BILE DUCTS: Unremarkable. No calcified stones. No ductal dilation. PANCREAS: Unremarkable. No ductal dilation. SPLEEN: Unremarkable. No splenomegaly. ADRENALS: Unremarkable. No mass. KIDNEYS AND URETERS: Bilateral renal pelvic calculi, largest measuring up to 5 mm without obstructi on. STOMACH AND BOWEL: Fecal retention in the colon consistent with constipation. No obstruction. No mucosal thickening. PELVIS: APPENDIX: No findings to suggest acute appendicitis. BLADDER: Unremarkable. No stones. REPRODUCTIVE: Unremarkable as visualized. ABDOMEN and PELVIS: INTRAPERITONEAL SPACE: Unremarkable. No free air. No significant fluid collection. BONES/JOINTS: No acute fracture. No dislocation. SOFT TISSUES: Umbilical hernia containing fat. VASCULATURE: Unremarkable. No abdominal aortic aneurysm. LYMPH NODES: Unremarkable. No enlarged lymph nodes. OTHER FINDINGS: . . IMPRESSION: 1. Bibasilar atelectasis or pneumonia. 2. Small esophageal hiatal hernia. 3. Fecal retention in the colon consistent with constipation. No CT evidence of colitis. 4. Bilateral renal pelvic calculi, largest measuring up to 5 mm without obstruction. 5. Umbilical hernia containing fat.
[2024-05-05] MEDS: SODIUM CHLORIDE 0.9% 1,000 ML IV ONE (17:23)
[2024-05-05] MEDS: cefTRIAXone 1GM/50ML D5W 50 ML IV ONE (17:24)
[2024-05-05 18:56] VITALS: PULSE 68; RESP 12; O2SAT 95
[2024-05-05] MEDS: AZITHROMYCIN 500MG/ 250ML 250 ML IV ONE (18:56)
[2024-05-05 20:00] VITALS: PULSE 68; RESP 12; O2SAT 92
[2024-05-05] MEDS ORDERED: ACETAMINOPHEN 325 MG TAB PO PRN (21:45)
[2024-05-05] MEDS ORDERED: MORPHINE SULFATE INJ 2 MG/ml SYRG IV PRN ×2 (21:45)
[2024-05-05] MEDS ORDERED: ONDANSETRON HCL 4 MG/2 ML VIAL IV PRN (21:45)
[2024-05-05] MEDS: SODIUM CHLORIDE 0.9% 1,000 ML IV SCH (21:45)
[2024-05-05] MEDS: SODIUM CHLOR 0.9% PF (SALINE LOCK) 10ML VIAL/SYR IV SCH (22:09)
[2024-05-05 22:17] LABS: Urine Bacteria None Seen /hpf (None Seen)
[2024-05-05 22:24] LABS: Basophils # (auto) 0 10 ^3/uL (0-0.2); Basophils % (auto) 0.3 % (0.0-2.0); Eosinophils # (auto) 0.3 10 ^3/uL (0-0.8); Eosinophils % (auto) 3.5 % (0.0-7.0); Hemoglobin 12.6 g/dL (13.5-17.5); Lymphocytes # (auto) 1.7 10 ^3/uL (0.4-5.4); Mean Corpuscular Hemoglobin 30.9 pg (28.0-32.0); Mean Corpuscular Hgb Conc. 33.1 g/dL (32.0-36.0); Mean Corpuscular Volume 93.2 fL (80.0-100.0); Monocytes # (auto) 0.9 10 ^3/uL (0-1.3); Monocytes % (auto) 10.1 % (0.0-12.0); Neutrophils # (auto) 6.1 10 ^3/uL (1.6-8.6); Neutrophils % (auto) 67.1 % (37.0-80.0); Nucleated Red Blood Cells % 0.1 %; Platelet Count (auto) 341 10^3/uL (140-450); Red Blood Cells 4.08 10^6/uL (4.5-5.90); Red Cell Distribution Width 15.7 % (11.8-14.3)
--- NOTE | 2024-05-05 22:32 | DVHHPRES ---
History of Present Illness Resident Creating Document: CHAS PRESLEY RESIDENT History of Present Illness Bacilio Betancourt is 89 years old male with PMH of AFIB, Arthritis, CAD, CVA, GERD, High Lipids, HTN, SD, TIA presented to the ED with the chief complaints of weaknes and abdominal pain. Patient reported 8 days ago he had a mechanical fall and then underwent right hip fracture surgery at [facility] and then transferred the pt to [facility] for physical Therapy, patient reported he has been not treating well in rehabilitation and developed hallucinations, mild shortness of breath and abdominal in called 911. Patient also reported he has been having abdominal pain and constipation and catheter related pain with the moment. Patient s primary care provider Dr. Arias. On my assessment patient denies fever, nausea, vomiting, chest pain, diarrhea, and other acute associated symptoms. PMH: AFIB, Arthritis, CAD, CVA, GERD, High Lipids, HTN, SD, TIA PSH: Hernia Repair, PTCA, right hip surgery Family history: Stroke in brother Social history: Lives with the . Denies smoking, alcohol and other drug abuse Allergies: No known allergies Home medications: Unable to recall Review of Systems Constitutional: Yes: Weakness, Other (Headache) Eyes: No: Pain, Vision change, Conjunctivae inflammation, Eyelid inflammation, Other, Redness ENT: No: Ear pain, Ear discharge, Nose pain, Nose discharge, Nose congestion, Mouth pain, Mouth swelling, Throat pain, Throat swelling, Other Respiratory: Shortness of breath Cardiovascular: No: Chest Pain, Palpitations, Orthopnea, Paroxysmal Noc. Dyspnea, Edema, Lt Headedness, Other Gastrointestinal: Abdominal Pain, Constipation Genitourinary: No Dysuria, No Frequency, No Incontinence, No Hematuria, No Retention, No Other Musculoskeletal: other (Hip pain right) Skin: No: Rash, Lesions, Jaundice, Bruising, Other Neurological: No: Weakness, Numbness, Incoordination, Change in speech, Confusion, Seizures, Other Allergies: Coded Allergies: NO KNOWN ALLERGIES (Unverified , 05/28/23) Medications Current Medications Medications Dose Ordered Sig/Andre Route Start Time Stop Time Status Last Admin Dose Admin Sodium Chloride 10 ml Q8HR IV 05/05/24 22:00 05/05/24 22:09 10 ML Sodium Chloride 1,000 ml @ 60 mls/hr [id number] IV 05/05/24 21:45 Ondansetron HCl 4 mg Q4HP PRN IV 05/05/24 21:45 UNV Enoxaparin Sodium 40 mg DAILY SC 05/06/24 10:00 UNV Acetaminophen 650 mg Q6HP PRN PO 05/05/24 21:45 Morphine Sulfate 2 mg Q4HPRN PRN IV 05/05/24 21:45 Nitroglycerin 0.4 mg Q5MINP PRN SL 05/05/24 21:45 Morphine Sulfate 2 mg Q30M PRN IV 05/05/24 21:45 Exam Vital Signs Vital Signs Date Time Temp Pulse Resp B/P (MAP) Pulse Ox O2 Delivery O2 Flow Rate FiO2 05/05/24 18:56 68 12 95 Room Air* 0 21 05/05/24 17:18 97.8 148/71 (96) 97.8 Exam Pt is lying on bed General Appearance: Alert, Oriented X3, Cooperative, mild distress HEENT: Atraumatic, Mucous membranes dry Respiratory: Clear to auscultation, Normal air movement, No added sounds Cardiovascular: Regular rate, Normal S1, Normal S2, No murmurs Abdominal: Active bowel sounds, Soft, no distention, no tenderness Extremities: Intact sutures at right hip joint. No edema, Normal pulses, No tenderness/swelling Skin: No Significant rash, except past surgical scars Neuro: Normal speech, sensorimotor deficits none Psych/Mental Status: Mental status NL, Mood NL Nurse was there as sharperone during examination Labs/Xrays Labs Test 05/05/24 22:17 05/05/24 22:16 05/05/24 21:57 05/05/24 14:47 Range/Units White Blood Count 9.0 4.4-10.8 10^3/uL Red Blood Count 4.08 L 4.5-5.90 10^6/uL Hemoglobin 12.6 L 13.5-17.5 g/dL Hematocrit 38.0 L 41.0-53.0 % Mean Corpuscular Volume 93.2 # 80.0-100.0 fL Mean Corpuscular Hemoglobin 30.9 28.0-32.0 pg Mean Corpuscular Hemoglobin Concent 33.1 32.0-36.0 g/dL Red Cell Distribution Width 15.7 H 11.8-14.3 % Platelet Count 341 140-450 10^3/uL Mean Platelet Volume 7.5 6.9-10.8 fL Neutrophils (%) (Auto) 67.1 37.0-80.0 % Lymphocytes (%) (Auto) 19.0 10.0-50.0 % Monocytes (%) (Auto) 10.1 0.0-12.0 % Eosinophils (%) (Auto) 3.5 0.0-7.0 % Basophils (%) (Auto) 0.3 0.0-2.0 % Neutrophils # (Auto) 6.1 1.6-8.6 10 ^3/uL Lymphocytes # (Auto) 1.7 0.4-5.4 10 ^3/uL Monocytes # (Auto) 0.9 0-1.3 10 ^3/uL Eosinophils # (Auto) 0.3 0-0.8 10 ^3/uL Basophils # (Auto) 0 0-0.2 10 ^3/uL Nucleated Red Blood Cells 0.1 % Hemoglobin A1c 5.3 <5.7 % A1C Assessment/Plan Assessment/Plan # ? Acute G+/- Bacterial PNA -CXR & CT showed findings of pneumonia -currently giving Rocephin and azithromycin -ordered respiratory culture # Uncontrolled HTN -closely monitor blood pressure -resume home meds # B/L nephrolithiasis -evident on CT abdominal pelvis -outpatient follow # possible UTI - ordered urine bacterial culture - currently giving Rocephin # abdominal pain likely due to constipation -currently giving docusate and lactulose # Umbilical hernia -outpatient follow up # Esophageal hiatal hernia -Protonix Protonix Eliquis Cardiac diet Goals of care discussed with the patient for more than 27 minutes: Full code status Case discussed with Dr. Adams, patient and RN Plan discussed with: Patient My Orders Orders - CHAS PRESLEY RESIDENT Procedure Category Date Status Time Admit ADMIT 05/05/24 Transmitted 21:40 Allergies BRIA 05/05/24 In Process 21:40 Code Status CODE 05/05/24 Transmitted 21:40 Sodium Chloride Lock PHA 05/05/24 In Process (Saline Lock Ns) 22:00 Sodium Chloride 0.9% PHA 05/05/24 In Process 21:45 Oxygen Per Hour RT 05/05/24 Transmitted 21:40 Ondansetron Hcl PHA 05/05/24 Pending (Zofran) 21:45 Enoxaparin Sodium PHA 05/06/24 In Process (Lovenox) 10:00 Complete Blood Count LAB 05/06/24 Verified 04:00 Comprehensive LAB 05/06/24 Verified Metabolic Panel 04:00 Condition: Stable BRIA 05/05/24 In Process 21:40 Acetaminophen Tablet PHA 05/05/24 In Process (Tylenol Tablet) 21:45 Morphine Sulfate PHA 05/05/24 In Process Injection 21:45 Nitroglycerin PHA 05/05/24 In Process Sublingual (Ntrostat 21:45 Morphine Sulfate PHA 05/05/24 In Process Injection 21:45 Oxygen By Nasal RT 05/05/24 Transmitted Cannula 21:40 Stat Ekg For Chest BRIA 05/05/24 In Process Pain 21:40 Notify Of Changes BRIA 05/05/24 In Process From Base 21:40 Urine Bacterial RYANN 05/05/24 In Process Culture 21:40 Respiratory Culture RYANN 05/05/24 Logged W/ Gs 21:40 Ammonia LAB 05/05/24 In Process 21:40 B-Type Natriuretic LAB 05/05/24 In Process Peptide 21:40 Comprehensive LAB 05/05/24 In Process Metabolic Panel 21:40 Blood Alcohol LAB 05/05/24 In Process 21:40 Covid19 Antigen Patricia LAB 05/05/24 In Process Drug Screen LAB 05/05/24 In Process 21:40 Lactic Acid W/ Reflex LAB 05/05/24 In Process Order 21:40 Magnesium LAB 05/05/24 In Process 21:40 PTPTT LAB 05/05/24 In Process 21:40 Rapid Influenza A&B LAB 05/05/24 In Process 21:40 Thyroid Stimulating LAB 05/05/24 In Process Hormone 21:40 Urinalysis LAB 05/05/24 In Process 21:40 *[address] Arias CONS 05/05/24 Transmitted [place] 22:09 Troponin-I Hs LAB 05/05/24 In Process 22:10 Cardiac DIET 05/06/24 Transmitted Diet-2gna,Lofat,Lochol Breakfast Pantoprazole PHA 05/06/24 In Process (Protonix) 10:00 Docusate Sodium PHA 05/06/24 In Process Capsule (Colace 10:00 Ceftriaxone 1gm/50ml PHA 05/06/24 Logged D5w (Rocephin) 09:00 Azithromycin 500mg/ PHA 05/06/24 Logged 250ml (Zithromax 50 10:00 Date of Service: May 05, 2024 Billing Provider: GILMA ADAMS MD Common Visit Codes: [id number] INP/OBS CARE (HIGH) Secondary Visit Codes: [id number] CARE PLAN 30 MINUTES CHAS PRESLEY RESIDENT May 05, 2024 22:32 GILMA ADAMS MD May 06, 2024 17:52
[2024-05-05 22:37] LABS: Anion Gap 5 (5-15); BUN/Creatinine Ratio 12.7 (10.0-20.0); Calcium 9.1 mg/dL (8.7-10.4); Carbon Dioxide 28 mmol/L (20-31); Glucose 93 mg/dL (74-106); Magnesium 1.9 mg/dL (1.6-2.6); Potassium 3.5 mmol/L (3.5-5.1); Sodium 141 mmol/L (136-145); Total Protein 5.9 g/dL (5.7-8.2)
[2024-05-05 22:38] LABS: Albumin 3.6 g/dL (3.2-4.8); Bilirubin, Total 0.8 mg/dL (0.2-1.0); INR 1.16 (0.9-1.15); Partial Thromboplastin Time 26.5 SEC (24.5-34.5); Prothrombin Time 12.1 sec (9.3-11.8)
[2024-05-05 22:40] LABS: Alanine Aminotransferase 101 U/L (7-40); Alkaline Phosphatase 214 U/L (46-116); Aspartate Aminotransferase 42 U/L (13-40); Blood Alcohol < 3.0 mg/dL (<10); Blood Urea Nitrogen 9 mg/dL (9-23); Chloride 108 mmol/L (98-107)
[2024-05-05 22:45] LABS: Opiate Scree,Urine Neg (NEGATIVE)
[2024-05-05 22:47] LABS: Urine Blood 2+ /uL (Negative); Urine Clarity Clear (Clear); Urine Color Light-Yellow (Yellow); Urine Protein, UAD Negative (Negative); Urine Specific Gravity 1.005 (1.001-1.035); Urine Squamous Epithelial Cell None Seen /hpf (<5); Urine Urobilinogen Normal (Negative); Urine WBC 1 /HPF (0-3); Urine pH 6.5 (5.0-9.0)
[2024-05-05 22:48] LABS: Amphetamine Screen, Urine Neg (NEGATIVE); Barbiturate Scree,Urine Neg (NEGATIVE); Benzodiazephine Screen, Urine Neg (NEGATIVE); Cannabinoid Screen, Urine Neg (NEGATIVE); Cocaine Screen, Urine Neg (NEGATIVE); Phencyclidine Screen, Urine Neg (NEGATIVE)
[2024-05-05 22:56] LABS: COVID19 ANTIGEN SOFIA FIA NEGATIVE (NEGATIVE); Rapid Influenza A Negative (Negative); Rapid Influenza B Negative (Negative)
[2024-05-05] MEDS: PANTOPRAZOLE 40 MG/10 ML VIAL INJ IV ONE (23:05)
[2024-05-05] MEDS: DOCUSATE SOD 100 MG CAP PO ONE (23:08)
[2024-05-06] MEDS: LACTULOSE 20Gm/30ML SOLN PO ONE (01:50)
[2024-05-06 03:21] VITALS: BP 144/75; PULSE 65; PULSE 68; RESP 17; RESP 20; TEMP 97; O2SAT 95
[2024-05-06] MEDS ORDERED: ATOR20TA50 (04:52)
[2024-05-06] MEDS ORDERED: TAMS0.4C39 (04:52)
[2024-05-06] MEDS ORDERED: FAMO-12 (04:52)
[2024-05-06] MEDS ORDERED: METO25TA93 (04:52)
[2024-05-06] MEDS ORDERED: FIN5T (04:52)
[2024-05-06] MEDS ORDERED: CARV3.1240 (04:52)
[2024-05-06] MEDS ORDERED: CLOP75TA70 (04:52)
[2024-05-06 08:00] VITALS: PULSE 83; RESP 15; O2SAT 93
[2024-05-06] MEDS: DOCUSATE SOD 100 MG CAP PO SCH (08:44)
[2024-05-06] MEDS: PANTOPRAZOLE 40 MG/10 ML VIAL INJ IV SCH (08:44)
[2024-05-06] MEDS: LACTULOSE 20Gm/30ML SOLN PO SCH (08:44)
[2024-05-06] MEDS: ENOXAPARIN SOD 40 MG/0.4 ML SYRINGE SC SCH (08:45)
[2024-05-06 09:00] VITALS: BP 146/75; PULSE 83; RESP 15; TEMP 98.1; O2SAT 89
[2024-05-06 09:40] LABS: Basophils # (auto) 0 10 ^3/uL (0-0.2); Basophils % (auto) 0.3 % (0.0-2.0); Eosinophils # (auto) 0.2 10 ^3/uL (0-0.8); Eosinophils % (auto) 2.8 % (0.0-7.0); Hematocrit 37.2 % (41.0-53.0); Hemoglobin 12.8 g/dL (13.5-17.5); Lymphocytes # (auto) 0.9 10 ^3/uL (0.4-5.4); Lymphocytes % (auto) 10.8 % (10.0-50.0); Mean Corpuscular Hemoglobin 31.2 pg (28.0-32.0); Mean Corpuscular Hgb Conc. 34.5 g/dL (32.0-36.0); Mean Corpuscular Volume 90.7 fL (80.0-100.0); Monocytes # (auto) 0.7 10 ^3/uL (0-1.3); Monocytes % (auto) 8.7 % (0.0-12.0); Neutrophils # (auto) 6.2 10 ^3/uL (1.6-8.6); Neutrophils % (auto) 77.4 % (37.0-80.0); Platelet Count (auto) 344 10^3/uL (140-450); Red Blood Cells 4.11 10^6/uL (4.5-5.90); Red Cell Distribution Width 15.3 % (11.8-14.3)
[2024-05-06 10:00] LABS: Albumin 3.8 g/dL (3.2-4.8); Anion Gap 7 (5-15); Aspartate Aminotransferase 38 U/L (13-40); BUN/Creatinine Ratio 14.5 (10.0-20.0); Blood Urea Nitrogen 11 mg/dL (9-23); Calcium 9.2 mg/dL (8.7-10.4); Carbon Dioxide 28 mmol/L (20-31); Potassium 3.6 mmol/L (3.5-5.1); Sodium 143 mmol/L (136-145); Total Protein 6.1 g/dL (5.7-8.2)
[2024-05-06 10:01] LABS: Bilirubin, Total 0.9 mg/dL (0.2-1.0)
[2024-05-06 10:21] LABS: Alanine Aminotransferase 91 U/L (7-40); Alkaline Phosphatase 233 U/L (46-116); Chloride 108 mmol/L (98-107); Glucose 145 mg/dL (74-106)
--- NOTE | 2024-05-06 10:23 | ECG ---
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
--- NOTE | 2024-05-06 10:45 | DVHPN2 ---
Progress Note Date Seen: May 06, 2024 Medical Necessity Reason Pt with a Central, PICC or Fol: Yes The following are medically ne: Kumar Catheter Reason for kumar catheter: Strict I&O Subjective Patient reports: No new complaints Review of Systems: HEENT:Normal, CVS:Normal, RESPIRATORY:Normal, GI:Normal, :Normal, MSK:Normal, NEURO:Normal Objective vital signs Vital Sign Date Time Temp Pulse Resp B/P (MAP) Pulse Ox O2 Delivery O2 Flow Rate FiO2 05/06/24 09:00 98.1 83 15 146/75 (98) 89 98.1 05/06/24 08:00 Nasal Cannula* 2 28 Total Intake and Output 05/05/24 05/05/24 05/06/24 15:00 23:00 07:00 Intake Total 964 ml 290 ml Output Total 320 ml Balance 964 ml -30 ml medications Current Medications Medications Dose Ordered Sig/Andre Route Start Time Stop Time Status Last Admin Dose Admin Sodium Chloride 10 ml Q8HR IV 05/05/24 22:00 05/06/24 08:46 10 ML Sodium Chloride 1,000 ml @ 60 mls/hr [id number] IV 05/05/24 21:45 05/06/24 08:57 60 MLS/HR Ondansetron HCl 4 mg Q4HP PRN IV 05/05/24 21:45 Enoxaparin Sodium 40 mg DAILY SC 05/06/24 10:00 05/06/24 08:45 40 MG Acetaminophen 650 mg Q6HP PRN PO 05/05/24 21:45 Morphine Sulfate 2 mg Q4HPRN PRN IV 05/05/24 21:45 Nitroglycerin 0.4 mg Q5MINP PRN SL 05/05/24 21:45 Morphine Sulfate 2 mg Q30M PRN IV 05/05/24 21:45 Pantoprazole Sodium 40 mg DAILY IV 05/06/24 10:00 05/06/24 08:44 40 MG Docusate Sodium 100 mg BID PO 05/06/24 10:00 05/06/24 08:44 100 MG Ceftriaxone Sodium 50 ml @ 100 mls/hr DAILY@1800 IV 05/06/24 18:00 Azithromycin 250 ml @ 125 mls/hr DAILY@1900 IV 05/06/24 19:00 Lactulose 15 ml DAILY PO 05/06/24 10:00 3/6/25 08:44 15 ML Examination: GENERAL:Normal, HEENT:Normal, NECK:Normal, LUNGS:Normal, CVS:Normal, ABDOMEN:Normal, MSK:Normal, SKIN:Normal, NEURO:Normal, :Normal laboratory and microbiology Laboratory Tests 05/06/24 09:14 Test 05/06/24 09:14 Range/Units Serum Glucose 145 H 74-106 mg/dL Problem List/Assessment/Plan Problem List/Assessment/Plan #1 ?pneumonia: iv antibiotics #2 uti: culture #3 cad #4 s/p right hip fracture: pt #5 htn #6 bph: cont meds #7 hyperlipidemia #8 a fib #9 gerd #10 gout advance care planning- full code- time spent 18 mins Plan discussed with: Patient Date of Service: May 06, 2024 Billing Provider: TABATHA GALLAGHER MD Common Visit Codes: [id number] INP/OBS CARE(HIGH) Secondary Visit Codes: [id number] CARE PLAN 30 MINUTES TABATHA GALLAGHER MD May 06, 2024 10:45
--- NOTE | 2024-05-06 10:59 | DVHPN2 ---
Progress Note - Dictate Date Seen: May 05, 2024 Medical Necessity Reason Pt with a Central, PICC or Fol: Yes The following are medically ne: Kumar Catheter Reason for kumar catheter: Strict I&O Subjective PT WITH RECENT FALL HIP FRACTURE ORIF SURGERY WAS AT [facility] DISCHARGE TO [facility] NO WORSENING HEMODYNAMIC STATUS TALKED TO SON WHO RESIDES IN [place] AT [facility] ON SEVERAL TIMES DECISION TO TRANSFER TO [facility] FOR BETTER CARE AND TO STABLIZE HEMODYNAMICALLY H HTN PAD TIA/ CVA CAD S/P PTCA STENT LAD WEAKNESS/ LETHARGY WEAKNESS vital signs Vital Sign Date Time Temp Pulse Resp B/P (MAP) Pulse Ox O2 Delivery O2 Flow Rate FiO2 05/06/24 09:00 98.1 83 15 146/75 (98) 89 98.1 05/06/24 08:00 Nasal Cannula* 2 28 Total Intake and Output 05/05/24 05/05/24 05/06/24 15:00 23:00 07:00 Intake Total 964 ml 290 ml Output Total 320 ml Balance 964 ml -30 ml medications Current Medications Medications Dose Ordered Sig/Andre Route Start Time Stop Time Status Last Admin Dose Admin Sodium Chloride 10 ml Q8HR IV 05/05/24 22:00 05/06/24 08:46 10 ML Ondansetron HCl 4 mg Q4HP PRN IV 05/05/24 21:45 Enoxaparin Sodium 40 mg DAILY SC 05/06/24 10:00 05/06/24 08:45 40 MG Acetaminophen 650 mg Q6HP PRN PO 05/05/24 21:45 Morphine Sulfate 2 mg Q4HPRN PRN IV 05/05/24 21:45 Nitroglycerin 0.4 mg Q5MINP PRN SL 05/05/24 21:45 Morphine Sulfate 2 mg Q30M PRN IV 05/05/24 21:45 Pantoprazole Sodium 40 mg DAILY IV 05/06/24 10:00 05/06/24 08:44 40 MG Docusate Sodium 100 mg BID PO 05/06/24 10:00 05/06/24 08:44 100 MG Ceftriaxone Sodium 50 ml @ 100 mls/hr DAILY@1800 IV 05/06/24 18:00 Azithromycin 250 ml @ 125 mls/hr DAILY@1900 IV 05/06/24 19:00 Lactulose 15 ml DAILY PO 05/06/24 10:00 05/06/24 08:44 15 ML Clopidogrel Bisulfate 75 mg DAILY PO 05/07/24 10:00 Metoprolol Succinate 25 mg DAILY PO 05/07/24 10:00 Atorvastatin Calcium 20 mg HS PO 05/06/24 22:00 Allopurinol 300 mg DAILY PO 05/07/24 10:00 Tamsulosin HCl 0.4 mg QPM PO 05/06/24 18:00 Finasteride 5 mg DAILY PO 05/07/24 10:00 Gabapentin 300 mg BID PO 05/06/24 22:00 Enteral Nutritional Formula 240 ml BIDWM PO 05/06/24 18:00 laboratory and microbiology Laboratory Tests 05/06/24 09:14 Test 05/06/24 09:14 Range/Units Serum Glucose 145 H 74-106 mg/dL Problem List RECENT FALL HIP FRACTURE ORIF SURGERY WAS AT [facility] DISCHARGE TO [facility] NO WORSENING HEMODYNAMIC STATUS TALKED TO SON WHO RESIDES IN [place] AT [facility] ON SEVERAL TIMES DECISION TO TRANSFER TO [facility] FOR BETTER CARE AND TO STABLIZE HEMODYNAMICALLY H HTN PAD TIA/ CVA CAD S/P PTCA STENT LAD WEAKNESS/ LETHARGY WEAKNESS CT OF ABD PELVIS PNEUMONIA CALCULI IMPACTED STOOL/ FECAL RETENTION UMBILICAL HERNIA SMALL HIATAL HERNIA Assessment/Plan IVF CHECK ABG PHYSICAL THERAPY LAXATIVE ABX NUTRITIONAL SUPPORT Plan discussed with: Patient Critical Care Time(min): 35 MOOKIE ROBINS MD May 06, 2024 10:58
[2024-05-06 13:00] VITALS: BP 143/74; PULSE 66; RESP 16; TEMP 97.6; O2SAT 92
[2024-05-06] MEDS: METOPROLOL SUCCINATE XL 50 MG TAB PO ONE (13:09)
--- NOTE | 2024-05-06 15:32 | DVHSR ---
APPROVED REPORT EXAM: Two-dimensional and M-mode echocardiogram with Doppler and color Doppler. Blood Pressure: 146/75 mmHg INDICATION CAD RISK FACTORS Height: 5'4", Weight: 125 DIMENSIONS LVDd3.8 (3.8-5.7cm)LA (2D)3.9 (1.9-4.0cm)Aortic Root3.4 (2.0-3.7cm) LVDs2.5 (2.5-4.0cm)LA (MM) (1.9-4.0cm)Aortic Cusp Exc0.4 (1.5-2.0cm) EF (%) 64.0 (55-70%)Rt. Atrium (1.9-4.0cm)Asc. Aorta2.6 cm IVSd0.7 (0.7-1.1cm)RV (D) (1.8-2.4cm) PWd0.8 (0.7-1.1cm) Mitral Valve MitralMitral Stenosis E wave0.67m/sMV Mean GR.mmHg A wave1.26m/sMV Peak GR.mmHg E/A ratio0.52D MVAcm2 DECEL [id number] 1/2 Timems Aortic Valve Aortic ValveAortic Stenosis V11.16m/Antoni Mean GR.13mmHg V22.42m/Antoni Peak GR.23mmHg LVOT Diameter1.9 (1.8-2.4cm)Doppler AVA1.36cm2 2D AVA1.07cm2 Pulmonic Valve V21.19m/s Tricuspid Valve TR Velocity2.72m/s [id number] Other Information Quality : Technically LimitedRhythm : Technically limited study due to patient position. Conclusion lvef 60 % byvisual estimate normal rv function left atrium enlarged moderate noted, santamaria gradient of 13 mmhg, this could be underestmiated given restricted nature of AV
[2024-05-06 17:00] VITALS: BP 149/70; PULSE 75; RESP 15; TEMP 97.6; O2SAT 95
[2024-05-06] MEDS: cefTRIAXone 1GM/50ML D5W 50 ML IV SCH (17:49)
[2024-05-06] MEDS: Ensure HIGH Protein Chocolate 8oz Bottle PO SCH (17:50)
[2024-05-06] MEDS: TAMSULOSIN HYDROCHLORIDE 0.4 MG CAP PO SCH (17:50)
[2024-05-06] MEDS ORDERED: AZITHROMYCIN 500MG/ 250ML 250 ML IV SCH (19:00)
[2024-05-06] MEDS: NITROGLYCERIN 0.4 MG SL TAB SL PRN (19:05)
[2024-05-06] MEDS: AZITHROMYCIN 500MG/ 250ML 250 ML IV SCH (19:11)
[2024-05-06 21:00] VITALS: BP 134/59; PULSE 72; RESP 17; TEMP 97.7; O2SAT 92
[2024-05-06] MEDS: GABAPENTIN 300 MG CAP PO SCH (21:18)
[2024-05-06] MEDS: ATORVASTATIN 20 MG TAB PO SCH (21:19)
[2024-05-07] VITALS (7 sets, daily range): BP systolic 125–165; BP diastolic 65–82; PULSE 68–96; RESP 15–19; TEMP 97.4–98; O2SAT 92–97
--- NOTE | 2024-05-07 05:25 | DVH ---
CHEST RADIOGRAPH Indication: pneumonia Technique: Single frontal view of the chest was obtained Comparison: XY CHEST PORTABLE on DOS: 05/05/24 FINDINGS: Lines and Tubes: None Lungs: Subsegmental atelectasis in the right midlung. Medial right basilar airspace disease. Pleura: No effusion. No pneumothorax. Cardiomediastinal contours: Unremarkable Bones: No acute osseous abnormality. IMPRESSION: 1. Medial right basilar airspace disease which may reflect pneumonia in the appropriate clinical sett ing.
--- NOTE | 2024-05-07 09:06 | DVHPN2 ---
Progress Note - Dictate Date Seen: May 06, 2024 Medical Necessity Reason Pt with a Central, PICC or Fol: Yes The following are medically ne: Kumar Catheter Reason for kumar catheter: Strict I&O Subjective PT WITH RECENT FALL HIP FRACTURE ORIF SURGERY WAS AT [facility] DISCHARGE TO [facility] NO WORSENING HEMODYNAMIC STATUS TALKED TO SON WHO RESIDES IN [place] AT [facility] ON SEVERAL TIMES DECISION TO TRANSFER TO [facility] FOR BETTER CARE AND TO STABLIZE HEMODYNAMICALLY H HTN PAD TIA/ CVA CAD S/P PTCA STENT LAD WEAKNESS/ LETHARGY WEAKNESS vital signs Vital Sign Date Time Temp Pulse Resp B/P (MAP) Pulse Ox O2 Delivery O2 Flow Rate FiO2 05/07/24 05:00 97.9 68 15 148/81 (103) 93 97.9 05/06/24 20:00 Nasal Cannula* 2 28 Total Intake and Output 05/06/24 05/06/24 05/07/24 15:00 23:00 07:00 Intake Total 60 ml 930 ml 450 ml Output Total 550 ml 750 ml Balance 60 ml 380 ml -300 ml medications Current Medications Medications Dose Ordered Sig/Andre Route Start Time Stop Time Status Last Admin Dose Admin Sodium Chloride 10 ml Q8HR IV 05/05/24 22:00 05/07/24 06:09 10 ML Ondansetron HCl 4 mg Q4HP PRN IV 05/05/24 21:45 Enoxaparin Sodium 40 mg DAILY SC 05/06/24 10:00 05/06/24 08:45 40 MG Acetaminophen 650 mg Q6HP PRN PO 05/05/24 21:45 Morphine Sulfate 2 mg Q4HPRN PRN IV 05/05/24 21:45 Nitroglycerin 0.4 mg Q5MINP PRN SL 05/05/24 21:45 05/06/24 19:05 0.4 MG Morphine Sulfate 2 mg Q30M PRN IV 05/05/24 21:45 Pantoprazole Sodium 40 mg DAILY IV 05/06/24 10:00 05/06/24 08:44 40 MG Docusate Sodium 100 mg BID PO 05/06/24 10:00 05/06/24 21:19 100 MG Ceftriaxone Sodium 50 ml @ 100 mls/hr DAILY@1800 IV 05/06/24 18:00 05/06/24 17:49 100 MLS/HR Azithromycin 250 ml @ 125 mls/hr DAILY@1900 IV 05/06/24 19:00 05/06/24 19:11 125 MLS/HR Lactulose 15 ml DAILY PO 05/06/24 10:00 05/06/24 08:44 15 ML Clopidogrel Bisulfate 75 mg DAILY PO 05/07/24 10:00 Metoprolol Succinate 25 mg DAILY PO 05/07/24 10:00 Atorvastatin Calcium 20 mg HS PO 05/06/24 22:00 05/06/24 21:19 20 MG Allopurinol 300 mg DAILY PO 05/07/24 10:00 Tamsulosin HCl 0.4 mg QPM PO 05/06/24 18:00 05/06/24 17:50 0.4 MG Finasteride 5 mg DAILY PO 05/07/24 10:00 Gabapentin 300 mg BID PO 05/06/24 22:00 05/06/24 21:18 300 MG Enteral Nutritional Formula 240 ml BIDWM PO 05/06/24 18:00 05/06/24 17:50 240 ML laboratory and microbiology Laboratory Tests 05/06/24 09:14 Test 05/06/24 09:14 Range/Units Serum Glucose 145 H 74-106 mg/dL Problem List RECENT FALL HIP FRACTURE ORIF SURGERY WAS AT [facility] DISCHARGE TO [facility] NO WORSENING HEMODYNAMIC STATUS TALKED TO SON WHO RESIDES IN [place] AT [facility] ON SEVERAL TIMES DECISION TO TRANSFER TO [facility] FOR BETTER CARE AND TO STABLIZE HEMODYNAMICALLY PMH HTN PAD TIA/ CVA CAD S/P PTCA STENT LAD WEAKNESS/ LETHARGY WEAKNESS CT OF ABD PELVIS PNEUMONIA CALCULI IMPACTED STOOL/ FECAL RETENTION UMBILICAL HERNIA SMALL HIATAL HERNIA Assessment/Plan IVF CHECK ABG PHYSICAL THERAPY LAXATIVE ABX NUTRITIONAL SUPPORT ALERT NOW Dietary Evaluation Review Comments: Instructed provided for ppreenting constipation, encouraged high fiber diet, fluid, physical acitive if medically feasbile. Avoid pain meds if does not need it. May use Ensure High Protein PO 240ml BID if desired. Expected Outcomes/Goals: Gradual weight gain. regular BMs. Plan discussed with: Patient Critical Care Time(min): 35 MOOKIE ROBINS MD May 07, 2024 09:06
[2024-05-07] MEDS: ALLOPURINOL 100 MG TAB PO SCH (10:05)
[2024-05-07] MEDS: FINASTERIDE 5 MG TAB PO SCH (10:07)
[2024-05-07] MEDS: CLOPIDOGREL BISULFATE 75 MG TAB PO SCH (10:07)
[2024-05-07] MEDS: METOPROLOL SUCCINATE XL 50 MG TAB PO SCH (10:08)
--- NOTE | 2024-05-07 17:31 | DVHPN2 ---
Subjective in bed resting Reviewed: Care Plan Changes from previous H/P or p: No Changes Eyes: No Pain, No Vision change, No Conjunctivae inflammation, No Eyelid inflammation, No Other, No Redness ENT: No Ear pain, No Ear discharge, No Nose pain, No Nose discharge, No Nose congestion, No Mouth pain, No Mouth swelling, No Throat pain, No Throat swelling, No Other Cardiovascular: No Chest Pain, No Palpitations, No Orthopnea, No Paroxysmal Noc. Dyspnea, No Edema, No Lt Headedness, No Other Respiratory: Shortness of breath Gastrointestinal: Abdominal Pain, Constipation Genitourinary: No Dysuria, No Frequency, No Incontinence, No Hematuria, No Retention, No Other Musculoskeletal: other (Hip pain right) Skin: No Rash, No Lesions, No Jaundice, No Bruising, No Other Objective Vitals Vital Signs Date Time Temp Pulse Resp B/P (MAP) Pulse Ox O2 Delivery O2 Flow Rate FiO2 05/07/24 16:43 97.4 74 19 132/77 (95) 97 97.4 05/07/24 07:30 Nasal Cannula* 2 28 Intake/Output Intake and Output 05/07/24 07:00 Intake Total 1440 ml Output Total 1300 ml Balance 140 ml Intake Oral 1130 ml IV Total 310 ml Output Urine Total 1300 ml General Appearance: Alert, Oriented X3 Lungs: Clear to auscultation Cardiovascular: Regular rate, Normal S1, Normal S2 Medications Current Medications Medications Dose Ordered Sig/Andre Route Start Time Stop Time Status Last Admin Dose Admin Sodium Chloride 10 ml Q8HR IV 05/05/24 22:00 05/07/24 13:45 10 ML Ondansetron HCl 4 mg Q4HP PRN IV 05/05/24 21:45 Enoxaparin Sodium 40 mg DAILY SC 05/06/24 10:00 05/07/24 10:08 40 MG Acetaminophen 650 mg Q6HP PRN PO 05/05/24 21:45 Morphine Sulfate 2 mg Q4HPRN PRN IV 05/05/24 21:45 Nitroglycerin 0.4 mg Q5MINP PRN SL 05/05/24 21:45 05/06/24 19:05 0.4 MG Morphine Sulfate 2 mg Q30M PRN IV 05/05/24 21:45 Pantoprazole Sodium 40 mg DAILY IV 05/06/24 10:00 05/07/24 10:00 40 MG Docusate Sodium 100 mg BID PO 05/06/24 10:00 05/07/24 10:07 100 MG Ceftriaxone Sodium 50 ml @ 100 mls/hr DAILY@1800 IV 05/06/24 18:00 05/06/24 17:49 100 MLS/HR Azithromycin 250 ml @ 125 mls/hr DAILY@1900 IV 05/06/24 19:00 05/06/24 19:11 125 MLS/HR Lactulose 15 ml DAILY PO 05/06/24 10:00 05/07/24 10:01 15 ML Clopidogrel Bisulfate 75 mg DAILY PO 05/07/24 10:00 05/07/24 10:07 75 MG Metoprolol Succinate 25 mg DAILY PO 05/07/24 10:00 05/07/24 10:08 25 MG Atorvastatin Calcium 20 mg HS PO 05/06/24 22:00 05/06/24 21:19 20 MG Allopurinol 300 mg DAILY PO 05/07/24 10:00 05/07/24 10:05 300 MG Tamsulosin HCl 0.4 mg QPM PO 05/06/24 18:00 05/06/24 17:50 0.4 MG Finasteride 5 mg DAILY PO 05/07/24 10:00 05/07/24 10:07 5 MG Gabapentin 300 mg BID PO 05/06/24 22:00 05/07/24 10:05 300 MG Enteral Nutritional Formula 240 ml BIDWM PO 05/06/24 18:00 05/07/24 08:00 240 ML Laboratory Results Laboratory Tests 05/06/24 09:14 Urinalysis Test 05/05/24 22:16 Urine Color Light-yellow (Yellow) Urine Clarity Clear (Clear) Urine pH 6.5 (5.0-9.0) Urine Specific [place] 1.005 (1.001-1.035) Urine Protein Negative (Negative) Urine Ketones Negative (Negative) Urine Blood 2+ /uL (Negative) H Urine Nitrite Negative (Negative) Urine Bilirubin Negative (Negative) Urine Urobilinogen Normal mg/dL (Negative) Urine Leukocyte Esterase 1+ /uL (Negative) Urine RBC 10 /hpf (0 - 3) Urine Microscopic WBC 1 /HPF (0-3) Urine Squamous Epithelial Cells None seen /hpf (<5) Urine Bacteria None seen /hpf (None Seen) Urine Glucose Normal mg/dL (Normal) Microbiology Microbiology Date/Time Source Procedure Growth Status 05/06/24 17:55 Nose MRSA Screen - Final Complete 05/06/24 14:40 Urine - [place] Urine Culture - Preliminary Resulted Assessment/Plan Assessment/Plan #1 ?pneumonia: iv antibiotics #2 uti: culture #3 cad #4 s/p right hip fracture: pt #5 htn #6 bph: cont meds #7 hyperlipidemia #8 a fib #9 gerd #10 gout Plan discussed with: Patient Date of Service: May 07, 2024 Billing Provider: IRON COOK MD Common Visit Codes: [id number] INP/OBS CARE(HIGH) IRON COOK MD May 07, 2024 17:31
[2024-05-08] VITALS (7 sets, daily range): BP systolic 101–150; BP diastolic 56–74; PULSE 76–88; RESP 16–18; TEMP 97.6–98; O2SAT 93–100
--- NOTE | 2024-05-08 14:18 | DVHPN2 ---
Subjective in bed resting Reviewed: Care Plan Changes from previous H/P or p: No Changes Eyes: No Pain, No Vision change, No Conjunctivae inflammation, No Eyelid inflammation, No Other, No Redness ENT: No Ear pain, No Ear discharge, No Nose pain, No Nose discharge, No Nose congestion, No Mouth pain, No Mouth swelling, No Throat pain, No Throat swelling, No Other Cardiovascular: No Chest Pain, No Palpitations, No Orthopnea, No Paroxysmal Noc. Dyspnea, No Edema, No Lt Headedness, No Other Respiratory: Shortness of breath Gastrointestinal: Abdominal Pain, Constipation Genitourinary: No Dysuria, No Frequency, No Incontinence, No Hematuria, No Retention, No Other Musculoskeletal: other (Hip pain right) Skin: No Rash, No Lesions, No Jaundice, No Bruising, No Other Objective Vitals Vital Signs Date Time Temp Pulse Resp B/P (MAP) Pulse Ox O2 Delivery O2 Flow Rate FiO2 05/08/24 13:00 97.8 80 17 101/56 (71) 95 97.8 05/08/24 07:30 Nasal Cannula* 2 28 Intake/Output Intake and Output 05/08/24 07:00 Intake Total 2100 ml Output Total 2650 ml Balance -550 ml Intake Oral 1500 ml IV Total 600 ml Output Urine Total 2650 ml General Appearance: Alert, Oriented X3 Lungs: Clear to auscultation Cardiovascular: Regular rate, Normal S1, Normal S2 Medications Current Medications Medications Dose Ordered Sig/Andre Route Start Time Stop Time Status Last Admin Dose Admin Sodium Chloride 10 ml Q8HR IV 05/05/24 22:00 05/08/24 13:46 10 ML Ondansetron HCl 4 mg Q4HP PRN IV 05/05/24 21:45 Enoxaparin Sodium 40 mg DAILY SC 05/06/24 10:00 05/08/24 09:06 40 MG Acetaminophen 650 mg Q6HP PRN PO 05/05/24 21:45 Morphine Sulfate 2 mg Q4HPRN PRN IV 05/05/24 21:45 Nitroglycerin 0.4 mg Q5MINP PRN SL 05/05/24 21:45 05/06/24 19:05 0.4 MG Morphine Sulfate 2 mg Q30M PRN IV 05/05/24 21:45 Pantoprazole Sodium 40 mg DAILY IV 05/06/24 10:00 05/08/24 10:00 40 MG Docusate Sodium 100 mg BID PO 05/06/24 10:00 05/08/24 09:06 100 MG Ceftriaxone Sodium 50 ml @ 100 mls/hr DAILY@1800 IV 05/06/24 18:00 05/07/24 18:11 100 MLS/HR Azithromycin 250 ml @ 125 mls/hr DAILY@1900 IV 05/06/24 19:00 05/07/24 18:15 125 MLS/HR Lactulose 15 ml DAILY PO 05/06/24 10:00 05/08/24 09:06 15 ML Clopidogrel Bisulfate 75 mg DAILY PO 05/07/24 10:00 05/08/24 09:08 75 MG Metoprolol Succinate 25 mg DAILY PO 05/07/24 10:00 05/08/24 10:00 25 MG Atorvastatin Calcium 20 mg HS PO 05/06/24 22:00 05/07/24 22:35 20 MG Allopurinol 300 mg DAILY PO 05/07/24 10:00 05/08/24 09:07 300 MG Tamsulosin HCl 0.4 mg QPM PO 05/06/24 18:00 05/07/24 18:11 0.4 MG Finasteride 5 mg DAILY PO 05/07/24 10:00 05/08/24 09:07 5 MG Gabapentin 300 mg BID PO 05/06/24 22:00 05/08/24 09:07 300 MG Enteral Nutritional Formula 240 ml BIDWM PO 05/06/24 18:00 05/08/24 08:00 240 ML Laboratory Results Laboratory Tests 05/06/24 09:14 Urinalysis Test 05/05/24 22:16 Urine Color Light-yellow (Yellow) Urine Clarity Clear (Clear) Urine pH 6.5 (5.0-9.0) Urine Specific [place] 1.005 (1.001-1.035) Urine Protein Negative (Negative) Urine Ketones Negative (Negative) Urine Blood 2+ /uL (Negative) H Urine Nitrite Negative (Negative) Urine Bilirubin Negative (Negative) Urine Urobilinogen Normal mg/dL (Negative) Urine Leukocyte Esterase 1+ /uL (Negative) Urine RBC 10 /hpf (0 - 3) Urine Microscopic WBC 1 /HPF (0-3) Urine Squamous Epithelial Cells None seen /hpf (<5) Urine Bacteria None seen /hpf (None Seen) Urine Glucose Normal mg/dL (Normal) Microbiology Microbiology Date/Time Source Procedure Growth Status 05/06/24 17:55 Nose MRSA Screen - Final Complete 05/06/24 14:40 Urine - [place] Urine Culture - Preliminary Resulted Assessment/Plan Assessment/Plan #1 ?pneumonia: iv antibiotics #2 uti: culture #3 cad #4 s/p right hip fracture: pt #5 htn #6 bph: cont meds #7 hyperlipidemia #8 a fib #9 gerd #10 gout Plan discussed with: Patient Date of Service: May 08, 2024 Billing Provider: IRON COOK MD Common Visit Codes: [id number] INP/OBS CARE(HIGH) IRON COOK MD May 08, 2024 14:18
[2024-05-09] VITALS (8 sets, daily range): BP systolic 99–139; BP diastolic 63–70; PULSE 67–86; RESP 16–19; TEMP 97.4–98.6; O2SAT 94–98
--- NOTE | 2024-05-09 19:42 | DVHPN2 ---
Subjective in bed resting Reviewed: Care Plan Changes from previous H/P or p: No Changes Eyes: No Pain, No Vision change, No Conjunctivae inflammation, No Eyelid inflammation, No Other, No Redness ENT: No Ear pain, No Ear discharge, No Nose pain, No Nose discharge, No Nose congestion, No Mouth pain, No Mouth swelling, No Throat pain, No Throat swelling, No Other Cardiovascular: No Chest Pain, No Palpitations, No Orthopnea, No Paroxysmal Noc. Dyspnea, No Edema, No Lt Headedness, No Other Respiratory: Shortness of breath Gastrointestinal: Abdominal Pain, Constipation Genitourinary: No Dysuria, No Frequency, No Incontinence, No Hematuria, No Retention, No Other Musculoskeletal: other (Hip pain right) Skin: No Rash, No Lesions, No Jaundice, No Bruising, No Other Objective Vitals Vital Signs Date Time Temp Pulse Resp B/P (MAP) Pulse Ox O2 Delivery O2 Flow Rate FiO2 05/09/24 17:23 97.4 72 16 139/64 (89) 98 97.4 05/09/24 08:00 Nasal Cannula* 2 28 Intake/Output Intake and Output 05/09/24 07:00 Intake Total 1900 ml Output Total 2200 ml Balance -300 ml Intake Oral 1850 ml IV Total 50 ml Output Urine Total 2200 ml # Bowel Movements 1 General Appearance: Alert, Oriented X3 Lungs: Clear to auscultation Cardiovascular: Regular rate, Normal S1, Normal S2 Medications Current Medications Medications Dose Ordered Sig/Andre Route Start Time Stop Time Status Last Admin Dose Admin Sodium Chloride 10 ml Q8HR IV 05/05/24 22:00 05/09/24 14:07 10 ML Ondansetron HCl 4 mg Q4HP PRN IV 05/05/24 21:45 Enoxaparin Sodium 40 mg DAILY SC 05/06/24 10:00 05/09/24 10:32 40 MG Acetaminophen 650 mg Q6HP PRN PO 05/05/24 21:45 Morphine Sulfate 2 mg Q4HPRN PRN IV 05/05/24 21:45 Nitroglycerin 0.4 mg Q5MINP PRN SL 05/05/24 21:45 05/06/24 19:05 0.4 MG Morphine Sulfate 2 mg Q30M PRN IV 05/05/24 21:45 Pantoprazole Sodium 40 mg DAILY IV 05/06/24 10:00 05/09/24 10:31 40 MG Docusate Sodium 100 mg BID PO 05/06/24 10:00 05/09/24 10:33 100 MG Ceftriaxone Sodium 50 ml @ 100 mls/hr DAILY@1800 IV 05/06/24 18:00 05/09/24 17:04 100 MLS/HR Azithromycin 250 ml @ 125 mls/hr DAILY@1900 IV 05/06/24 19:00 05/09/24 17:44 125 MLS/HR Lactulose 15 ml DAILY PO 05/06/24 10:00 05/09/24 10:32 15 ML Clopidogrel Bisulfate 75 mg DAILY PO 05/07/24 10:00 05/09/24 10:34 75 MG Metoprolol Succinate 25 mg DAILY PO 05/07/24 10:00 05/09/24 10:33 25 MG Atorvastatin Calcium 20 mg HS PO 05/06/24 22:00 05/08/24 21:11 20 MG Allopurinol 300 mg DAILY PO 05/07/24 10:00 05/09/24 10:32 300 MG Tamsulosin HCl 0.4 mg QPM PO 05/06/24 18:00 05/09/24 17:04 0.4 MG Finasteride 5 mg DAILY PO 05/07/24 10:00 05/09/24 10:33 5 MG Gabapentin 300 mg BID PO 05/06/24 22:00 05/09/24 10:32 300 MG Enteral Nutritional Formula 240 ml BIDWM PO 05/06/24 18:00 05/09/24 17:43 240 ML Laboratory Results Laboratory Tests 05/06/24 09:14 Urinalysis Test 05/05/24 22:16 Urine Color Light-yellow (Yellow) Urine Clarity Clear (Clear) Urine pH 6.5 (5.0-9.0) Urine Specific [place] 1.005 (1.001-1.035) Urine Protein Negative (Negative) Urine Ketones Negative (Negative) Urine Blood 2+ /uL (Negative) H Urine Nitrite Negative (Negative) Urine Bilirubin Negative (Negative) Urine Urobilinogen Normal mg/dL (Negative) Urine Leukocyte Esterase 1+ /uL (Negative) Urine RBC 10 /hpf (0 - 3) Urine Microscopic WBC 1 /HPF (0-3) Urine Squamous Epithelial Cells None seen /hpf (<5) Urine Bacteria None seen /hpf (None Seen) Urine Glucose Normal mg/dL (Normal) Microbiology Microbiology Date/Time Source Procedure Growth Status 05/06/24 17:55 Nose MRSA Screen - Final Complete 05/06/24 14:40 Urine - [place] Urine Culture - Final Complete Assessment/Plan Assessment/Plan #1 ?pneumonia: iv antibiotics #2 uti: culture #3 cad #4 s/p right hip fracture: pt #5 htn #6 bph: cont meds #7 hyperlipidemia #8 a fib #9 gerd #10 gout Plan discussed with: Patient Date of Service: May 09, 2024 Billing Provider: IRON COOK MD Common Visit Codes: [id number] INP/OBS CARE(HIGH) IRON COOK MD May 09, 2024 19:42
[2024-05-10] VITALS (8 sets, daily range): BP systolic 105–138; BP diastolic 63–75; PULSE 71–90; RESP 16–19; TEMP 97.1–98.7; O2SAT 91–99
--- NOTE | 2024-05-10 12:50 | DVHPN2 ---
Progress Note - Dictate Date Seen: May 08, 2024 Medical Necessity Reason Pt with a Central, PICC or Fol: Yes The following are medically ne: Kumar Catheter Reason for kumar catheter: Strict I&O Subjective PT WITH RECENT FALL HIP FRACTURE ORIF SURGERY WAS AT [facility] DISCHARGE TO [facility] NO WORSENING HEMODYNAMIC STATUS TALKED TO SON WHO RESIDES IN [place] AT [facility] ON SEVERAL TIMES DECISION TO TRANSFER TO [facility] FOR BETTER CARE AND TO STABLIZE HEMODYNAMICALLY H HTN PAD TIA/ CVA CAD S/P PTCA STENT LAD WEAKNESS/ LETHARGY WEAKNESS vital signs Vital Sign Date Time Temp Pulse Resp B/P (MAP) Pulse Ox O2 Delivery O2 Flow Rate FiO2 05/10/24 09:00 97.9 81 17 105/65 (78) 93 97.9 05/10/24 08:00 Nasal Cannula* 2 28 Total Intake and Output 05/09/24 05/09/24 05/10/24 15:00 23:00 07:00 Intake Total 900 ml 300 ml Output Total 1150 ml 1300 ml Balance -250 ml -1000 ml medications Current Medications Medications Dose Ordered Sig/Andre Route Start Time Stop Time Status Last Admin Dose Admin Sodium Chloride 10 ml Q8HR IV 05/05/24 22:00 05/10/24 06:20 10 ML Ondansetron HCl 4 mg Q4HP PRN IV 05/05/24 21:45 Enoxaparin Sodium 40 mg DAILY SC 05/06/24 10:00 05/10/24 08:38 40 MG Acetaminophen 650 mg Q6HP PRN PO 05/05/24 21:45 Morphine Sulfate 2 mg Q4HPRN PRN IV 05/05/24 21:45 Nitroglycerin 0.4 mg Q5MINP PRN SL 05/05/24 21:45 05/06/24 19:05 0.4 MG Morphine Sulfate 2 mg Q30M PRN IV 05/05/24 21:45 Pantoprazole Sodium 40 mg DAILY IV 05/06/24 10:00 05/10/24 08:37 40 MG Docusate Sodium 100 mg BID PO 05/06/24 10:00 05/10/24 08:40 100 MG Ceftriaxone Sodium 50 ml @ 100 mls/hr DAILY@1800 IV 05/06/24 18:00 05/09/24 17:04 100 MLS/HR Azithromycin 250 ml @ 125 mls/hr DAILY@1900 IV 05/06/24 19:00 05/09/24 17:44 125 MLS/HR Lactulose 15 ml DAILY PO 05/06/24 10:00 05/10/24 08:51 15 ML Clopidogrel Bisulfate 75 mg DAILY PO 05/07/24 10:00 05/10/24 08:38 75 MG Metoprolol Succinate 25 mg DAILY PO 05/07/24 10:00 05/10/24 08:51 25 MG Atorvastatin Calcium 20 mg HS PO 05/06/24 22:00 05/09/24 21:11 20 MG Allopurinol 300 mg DAILY PO 05/07/24 10:00 05/10/24 08:50 300 MG Tamsulosin HCl 0.4 mg QPM PO 05/06/24 18:00 05/09/24 17:04 0.4 MG Finasteride 5 mg DAILY PO 05/07/24 10:00 05/10/24 08:38 5 MG Gabapentin 300 mg BID PO 05/06/24 22:00 05/10/24 08:38 300 MG Enteral Nutritional Formula 240 ml BIDWM PO 05/06/24 18:00 05/10/24 08:00 240 ML laboratory and microbiology Laboratory Tests 05/06/24 09:14 Test 05/06/24 09:14 Range/Units Serum Glucose 145 H 74-106 mg/dL Problem List RECENT FALL HIP FRACTURE ORIF SURGERY WAS AT [facility] DISCHARGE TO [facility] NO WORSENING HEMODYNAMIC STATUS TALKED TO SON WHO RESIDES IN [place] AT [facility] ON SEVERAL TIMES DECISION TO TRANSFER TO [facility] FOR BETTER CARE AND TO STABLIZE HEMODYNAMICALLY H HTN PAD TIA/ CVA CAD S/P PTCA STENT LAD WEAKNESS/ LETHARGY WEAKNESS CT OF ABD PELVIS PNEUMONIA CALCULI IMPACTED STOOL/ FECAL RETENTION UMBILICAL HERNIA SMALL HIATAL HERNIA Assessment/Plan IVF CHECK ABG PHYSICAL THERAPY LAXATIVE ABX NUTRITIONAL SUPPORT ALERT NOW PT AGGRESSIVE TRANSFER TO [facility] Dietary Evaluation Review Comments: Instructed provided for ppreenting constipation, encouraged high fiber diet, fluid, physical acitive if medically feasbile. Avoid pain meds if does not need it. May use Ensure High Protein PO 240ml BID if desired. Expected Outcomes/Goals: Gradual weight gain. regular BMs. Plan discussed with: Patient, Spouse, Son MOOKIE ROBINS MD May 10, 2024 12:50
--- NOTE | 2024-05-10 12:51 | DVHPN2 ---
Progress Note - Dictate Date Seen: May 09, 2024 Medical Necessity Reason Pt with a Central, PICC or Fol: Yes The following are medically ne: Kumar Catheter Reason for kumar catheter: Strict I&O Subjective PT WITH RECENT FALL HIP FRACTURE ORIF SURGERY WAS AT [facility]GE TO [facility] NO WORSENING HEMODYNAMIC STATUS TALKED TO SON WHO RESIDES IN [place] AT [facility] ON SEVERAL TIMES DECISION TO TRANSFER TO [facility] FOR BETTER CARE AND TO STABLIZE HEMODYNAMICALLY H HTN PAD TIA/ CVA CAD S/P PTCA STENT LAD WEAKNESS/ LETHARGY WEAKNESS vital signs Vital Sign Date Time Temp Pulse Resp B/P (MAP) Pulse Ox O2 Delivery O2 Flow Rate FiO2 05/10/24 09:00 97.9 81 17 105/65 (78) 93 97.9 05/10/24 08:00 Nasal Cannula* 2 28 Total Intake and Output 05/09/24 05/09/24 05/10/24 15:00 23:00 07:00 Intake Total 900 ml 300 ml Output Total 1150 ml 1300 ml Balance -250 ml -1000 ml medications Current Medications Medications Dose Ordered Sig/Andre Route Start Time Stop Time Status Last Admin Dose Admin Sodium Chloride 10 ml Q8HR IV 05/05/24 22:00 05/10/24 06:20 10 ML Ondansetron HCl 4 mg Q4HP PRN IV 05/05/24 21:45 Enoxaparin Sodium 40 mg DAILY SC 05/06/24 10:00 05/10/24 08:38 40 MG Acetaminophen 650 mg Q6HP PRN PO 05/05/24 21:45 Morphine Sulfate 2 mg Q4HPRN PRN IV 05/05/24 21:45 Nitroglycerin 0.4 mg Q5MINP PRN SL 05/05/24 21:45 05/06/24 19:05 0.4 MG Morphine Sulfate 2 mg Q30M PRN IV 05/05/24 21:45 Pantoprazole Sodium 40 mg DAILY IV 05/06/24 10:00 05/10/24 08:37 40 MG Docusate Sodium 100 mg BID PO 05/06/24 10:00 05/10/24 08:40 100 MG Ceftriaxone Sodium 50 ml @ 100 mls/hr DAILY@1800 IV 05/06/24 18:00 05/09/24 17:04 100 MLS/HR Azithromycin 250 ml @ 125 mls/hr DAILY@1900 IV 05/06/24 19:00 05/09/24 17:44 125 MLS/HR Lactulose 15 ml DAILY PO 05/06/24 10:00 05/10/24 08:51 15 ML Clopidogrel Bisulfate 75 mg DAILY PO 05/07/24 10:00 05/10/24 08:38 75 MG Metoprolol Succinate 25 mg DAILY PO 05/07/24 10:00 05/10/24 08:51 25 MG Atorvastatin Calcium 20 mg HS PO 05/06/24 22:00 05/09/24 21:11 20 MG Allopurinol 300 mg DAILY PO 05/07/24 10:00 05/10/24 08:50 300 MG Tamsulosin HCl 0.4 mg QPM PO 05/06/24 18:00 05/09/24 17:04 0.4 MG Finasteride 5 mg DAILY PO 05/07/24 10:00 05/10/24 08:38 5 MG Gabapentin 300 mg BID PO 05/06/24 22:00 05/10/24 08:38 300 MG Enteral Nutritional Formula 240 ml BIDWM PO 05/06/24 18:00 05/10/24 08:00 240 ML laboratory and microbiology Laboratory Tests 05/06/24 09:14 Test 05/06/24 09:14 Range/Units Serum Glucose 145 H 74-106 mg/dL Problem List RECENT FALL HIP FRACTURE ORIF SURGERY WAS AT [facility] DISCHARGE TO [facility] NO WORSENING HEMODYNAMIC STATUS TALKED TO SON WHO RESIDES IN [place] AT [facility] ON SEVERAL TIMES DECISION TO TRANSFER TO [facility] FOR BETTER CARE AND TO STABLIZE HEMODYNAMICALLY H HTN PAD TIA/ CVA CAD S/P PTCA STENT LAD WEAKNESS/ LETHARGY WEAKNESS CT OF ABD PELVIS PNEUMONIA CALCULI IMPACTED STOOL/ FECAL RETENTION UMBILICAL HERNIA SMALL HIATAL HERNIA Assessment/Plan IVF CHECK ABG PHYSICAL THERAPY LAXATIVE ABX NUTRITIONAL SUPPORT ALERT NOW PT AGGRESSIVE TRANSFER TO [facility] Dietary Evaluation Review Comments: Instructed provided for ppreenting constipation, encouraged high fiber diet, fluid, physical acitive if medically feasbile. Avoid pain meds if does not need it. May use Ensure High Protein PO 240ml BID if desired. Expected Outcomes/Goals: Gradual weight gain. regular BMs. Plan discussed with: Patient, Spouse, Son MOOKIE ROBINS MD May 10, 2024 12:50
--- NOTE | 2024-05-10 13:14 | DVHDS2 ---
Discharge Summary Date of Admission May 05, 2024 at 21:40 Date of Discharge: May 10, 2024 Labs/Diagnostic Data: Laboratory Results Test 05/06/24 09:14 05/05/24 22:17 05/05/24 22:16 05/05/24 21:57 White Blood Count 8.0 10^3/uL (4.4-10.8) Red Blood Count 4.11 10^6/uL (4.5-5.90) Hemoglobin 12.8 g/dL (13.5-17.5) Hematocrit 37.2 % (41.0-53.0) Mean Corpuscular Volume 90.7 fL (80.0-100.0) Mean Corpuscular Hemoglobin 31.2 pg (28.0-32.0) Mean Corpuscular Hemoglobin Concent 34.5 g/dL (32.0-36.0) Red Cell Distribution Width 15.3 % (11.8-14.3) Platelet Count 344 10^3/uL (140-450) Mean Platelet Volume 7.4 fL (6.9-10.8) Neutrophils (%) (Auto) 77.4 % (37.0-80.0) Lymphocytes (%) (Auto) 10.8 % (10.0-50.0) Monocytes (%) (Auto) 8.7 % (0.0-12.0) Eosinophils (%) (Auto) 2.8 % (0.0-7.0) Basophils (%) (Auto) 0.3 % (0.0-2.0) Neutrophils # (Auto) 6.2 10 ^3/uL (1.6-8.6) Lymphocytes # (Auto) 0.9 10 ^3/uL (0.4-5.4) Monocytes # (Auto) 0.7 10 ^3/uL (0-1.3) Eosinophils # (Auto) 0.2 10 ^3/uL (0-0.8) Basophils # (Auto) 0 10 ^3/uL (0-0.2) Nucleated Red Blood Cells 0.0 % Sodium Level 143 mmol/L (136-145) Potassium Level 3.6 mmol/L (3.5-5.1) Chloride Level 108 mmol/L (98-107) Carbon Dioxide Level 28 mmol/L (20-31) Anion Gap 7 (5-15) Blood Urea Nitrogen 11 mg/dL (9-23) Creatinine 0.76 mg/dL (0.700-1.30) Glomerular Filtration Rate Calc 87 mL/min (>90) BUN/Creatinine Ratio 14.5 (10.0-20.0) Serum Glucose 145 mg/dL (74-106) Calcium Level 9.2 mg/dL (8.7-10.4) Total Bilirubin 0.9 mg/dL (0.2-1.0) Aspartate Amino Transferase (AST) 38 U/L (13-40) Alanine Aminotransferase (ALT) 91 U/L (7-40) Alkaline Phosphatase 233 U/L (46-116) Total Protein 6.1 g/dL (5.7-8.2) Albumin 3.8 g/dL (3.2-4.8) Influenza Type A Antigen Negative (Negative) Influenza Type B Antigen Negative (Negative) SARS-CoV-2 Antigen (Rapid) Negative (NEGATIVE) Urine Color Light-yellow (Yellow) Urine Clarity Clear (Clear) Urine pH 6.5 (5.0-9.0) Urine Specific [place] 1.005 (1.001-1.035) Urine Protein Negative (Negative) Urine Ketones Negative (Negative) Urine Blood 2+ /uL (Negative) Urine Nitrite Negative (Negative) Urine Bilirubin Negative (Negative) Urine Urobilinogen Normal mg/dL (Negative) Urine Leukocyte Esterase 1+ /uL (Negative) Urine RBC 10 /hpf (0 - 3) Urine Microscopic WBC 1 /HPF (0-3) Urine Squamous Epithelial Cells None seen /hpf (<5) Urine Bacteria None seen /hpf (None Seen) Urine Glucose Normal mg/dL (Normal) Urine Opiates Screen Neg (NEGATIVE) Urine Fentanyl Screen Neg (NEGATIVE) Urine Barbiturates Screen Neg (NEGATIVE) Urine Phencyclidine Screen Neg (NEGATIVE) Urine Amphetamines Screen Neg (NEGATIVE) Urine Benzodiazepines Screen Neg (NEGATIVE) Urine Cocaine Screen Neg (NEGATIVE) Urine Cannabinoids Screen Neg (NEGATIVE) Prothrombin Time 12.1 sec (9.3-11.8) Prothrombin Time INR 1.16 (0.9-1.15) Activated Partial Thromboplast Time 26.5 SEC (24.5-34.5) Lactic Acid Level 0.9 mmol/L (0.4-2.0) Magnesium Level 1.9 mg/dL (1.6-2.6) Ammonia < 10 umol/L (11-32) Troponin I High Sensitivity 43 ng/L (</=54) Plasma/Serum Blood Alcohol < 3.0 mg/dL (<10) Test 05/05/24 14:47 Hemoglobin A1c 5.3 % A1C (<5.7) B-Type Natriuretic Peptide 34.42 pg/mL (0-100) Thyroid Stimulating Hormone (TSH) 3.02 uIU/mL (0.55-4.78) Other Laboratory Tests 05/06/24 09:14 Brief Hx & Hospital Course: SEE DICTATED NOTE Condition at Discharge: Fair Final Diagnosis/Problems List UTI Discharge Disposition: Home with Health Services Discharge Instruct/Medications Diet: Cardiac 2g Na,low cholest Activity: No Restrictions, As Tolerated Follow Up/Referral: RONALD TURNER PCP/ORTHO Medications: [facility] HOME MEDS Discharge Statement: "Patient was advised to return to the ER or call 911 if any headaches, dizziness, shortness of breath, chest pain, abdominal pain, bleeding, fevers, or worsening of medical condition. Patient was counseled about treatment plan, medications, possible side effects, patientverbalized understanding. All questions were answered to the best of my ability. This discharge took greater then 30 minutes in planning, reviewing documentation, counseling the patient, and discussing with other team members." ASSESSMENT ASSESSMENT Assessment UTI Date of Service: May 10, 2024 Billing Provider: TABATHA GALLAGHER MD Common Visit Codes: [id number] DISCH DAY >30min TABATHA GALLAGHER MD May 10, 2024 13:14
--- NOTE | 2024-05-10 14:05 | DVHDS ---
DATE OF DISCHARGE: 05/10/2024 HISTORY OF PRESENT ILLNESS: The patient is an 89-year-old gentleman who was admitted for abdominal pain, constipation. The patient had a recent right hip fracture surgery and has previous history of coronary artery disease, atrial fibrillation, CVA, hypertension, hyperlipidemia. HOSPITAL COURSE: The patient was seen in Cardiology consult by Dr. Arias. The patient had a CT of abdomen and pelvis that showed evidence of fecal retention with bibasilar atelectasis or pneumonia. The patient had evidence of UTI and was treated with IV antibiotics. The patient is now doing well and has been afebrile. The patient will be now discharged home to resume his home medications and follow up with his primary and Orthopedics. Echocardiogram done while in the hospital showed ejection fraction of 60%. FINAL DIAGNOSES: Therefore, * Questionable pneumonia. * Urinary tract infection. * Coronary artery disease. * Status post right hip fracture. * Hypertension. * Benign prostatic hypertrophy. * Hyperlipidemia. * Atrial fibrillation. * Gastroesophageal reflux disease. * Gout. Time spent in discharge planning and review of plan with the patient and nursing was 38 minutes. MD TERRELL Herrera/HANNAH TID: [id number] RECEIPT: [id number]
[2024-05-11] VITALS (7 sets, daily range): BP systolic 108–131; BP diastolic 65–73; PULSE 84–106; RESP 16–20; TEMP 97.8–98.5; O2SAT 94–99
--- NOTE | 2024-05-11 10:33 | DVHPN2 ---
Progress Note Date Seen: May 11, 2024 Medical Necessity Reason Pt with a Central, PICC or Fol: Yes The following are medically ne: Kumar Catheter Reason for kumar catheter: Strict I&O Subjective Patient reports: No new complaints Review of Systems: HEENT:Normal, CVS:Normal, RESPIRATORY:Normal, GI:Normal, :Normal, MSK:Normal, NEURO:Normal Objective vital signs Vital Sign Date Time Temp Pulse Resp B/P (MAP) Pulse Ox O2 Delivery O2 Flow Rate FiO2 05/11/24 09:00 98.4 106 18 108/68 (81) 94 98.4 05/10/24 20:00 Nasal Cannula* 2 28 Total Intake and Output 05/10/24 05/10/24 05/11/24 15:00 23:00 07:00 Intake Total 1750 ml 600 ml Output Total 900 ml 1700 ml Balance 850 ml -1100 ml medications Current Medications Medications Dose Ordered Sig/Andre Route Start Time Stop Time Status Last Admin Dose Admin Sodium Chloride 10 ml Q8HR IV 05/05/24 22:00 05/11/24 06:30 10 ML Ondansetron HCl 4 mg Q4HP PRN IV 05/05/24 21:45 Enoxaparin Sodium 40 mg DAILY SC 05/06/24 10:00 05/10/24 08:38 40 MG Acetaminophen 650 mg Q6HP PRN PO 05/05/24 21:45 Morphine Sulfate 2 mg Q4HPRN PRN IV 05/05/24 21:45 Nitroglycerin 0.4 mg Q5MINP PRN SL 05/05/24 21:45 05/06/24 19:05 0.4 MG Morphine Sulfate 2 mg Q30M PRN IV 05/05/24 21:45 Pantoprazole Sodium 40 mg DAILY IV 05/06/24 10:00 05/10/24 08:37 40 MG Docusate Sodium 100 mg BID PO 05/06/24 10:00 05/10/24 21:57 100 MG Ceftriaxone Sodium 50 ml @ 100 mls/hr DAILY@1800 IV 05/06/24 18:00 05/10/24 17:57 100 MLS/HR Azithromycin 250 ml @ 125 mls/hr DAILY@1900 IV 05/06/24 19:00 05/10/24 19:00 125 MLS/HR Lactulose 15 ml DAILY PO 05/06/24 10:00 05/10/24 08:51 15 ML Clopidogrel Bisulfate 75 mg DAILY PO 05/07/24 10:00 05/10/24 08:38 75 MG Metoprolol Succinate 25 mg DAILY PO 05/07/24 10:00 05/10/24 08:51 25 MG Atorvastatin Calcium 20 mg HS PO 05/06/24 22:00 05/10/24 21:57 20 MG Allopurinol 300 mg DAILY PO 05/07/24 10:00 05/10/24 08:50 300 MG Tamsulosin HCl 0.4 mg QPM PO 05/06/24 18:00 05/10/24 17:57 0.4 MG Finasteride 5 mg DAILY PO 05/07/24 10:00 05/10/24 08:38 5 MG Gabapentin 300 mg BID PO 05/06/24 22:00 05/10/24 21:58 300 MG Enteral Nutritional Formula 240 ml BIDWM PO 05/06/24 18:00 05/11/24 08:00 240 ML Examination: GENERAL:Normal, HEENT:Normal, NECK:Normal, LUNGS:Normal, CVS:Normal, ABDOMEN:Normal, MSK:Normal, SKIN:Normal, NEURO:Normal, :Normal laboratory and microbiology Laboratory Tests 05/06/24 09:14 Test 05/06/24 09:14 Range/Units Serum Glucose 145 H 74-106 mg/dL Microbiology Date/Time Source Procedure Growth Status 05/06/24 17:55 Nose MRSA Screen - Final Complete 05/06/24 14:40 Urine - Kumar Port Urine Culture - Final Complete Problem List/Assessment/Plan Problem List/Assessment/Plan #1 ?pneumonia: iv antibiotics #2 uti: iv rocephin #3 cad #4 s/p right hip fracture: pt #5 htn #6 bph: kumar replaced, hematuria- hold plavix/ lovenox #7 hyperlipidemia #8 a fib #9 gerd #10 gout advance care planning- full code- time spent 18 mins Plan discussed with: Patient My Orders My Orders Orders - TABATHA GALLAGHER MD Procedure Category Date Status Time * [employer] CONS 05/10/24 Transmitted Consult Discontinue Kumar BRIA 05/10/24 In Process Catheter 13:10 Pantoprazole Tablet PHA 05/12/24 Verified (Protonix Tablet) 06:00 Discharge DISCHARGE 05/11/24 Verified 10:28 Complete Blood Count LAB 05/11/24 Verified 10:28 Comprehensive LAB 05/11/24 Verified Metabolic Panel 10:28 Dietary Evaluation Review Comments: Instructed provided for ppreenting constipation, encouraged high fiber diet, fluid, physical acitive if medically feasbile. Avoid pain meds if does not need it. May use Ensure High Protein PO 240ml BID if desired. Expected Outcomes/Goals: Gradual weight gain. regular BMs. Date of Service: May 11, 2024 Billing Provider: TABATHA GALLAGHER MD Common Visit Codes: [id number] INP/OBS CARE(HIGH) TABATHA GALLAGHER MD May 11, 2024 10:33
[2024-05-11 11:24] LABS: Basophils # (auto) 0 10 ^3/uL (0-0.2); Basophils % (auto) 0.5 % (0.0-2.0); Eosinophils # (auto) 0.2 10 ^3/uL (0-0.8); Eosinophils % (auto) 2.9 % (0.0-7.0); Hematocrit 37.2 % (41.0-53.0); Hemoglobin 12.9 g/dL (13.5-17.5); Lymphocytes # (auto) 0.6 10 ^3/uL (0.4-5.4); Lymphocytes % (auto) 8.4 % (10.0-50.0); Mean Corpuscular Hemoglobin 31.2 pg (28.0-32.0); Mean Corpuscular Hgb Conc. 34.8 g/dL (32.0-36.0); Mean Corpuscular Volume 89.8 fL (80.0-100.0); Monocytes # (auto) 0.8 10 ^3/uL (0-1.3); Monocytes % (auto) 12.5 % (0.0-12.0); Neutrophils # (auto) 5.1 10 ^3/uL (1.6-8.6); Neutrophils % (auto) 75.7 % (37.0-80.0); Platelet Count (auto) 273 10^3/uL (140-450); Red Blood Cells 4.14 10^6/uL (4.5-5.90); Red Cell Distribution Width 15.3 % (11.8-14.3); White Blood Cell 6.8 10^3/uL (4.4-10.8)
[2024-05-11 11:57] LABS: Alanine Aminotransferase 33 U/L (7-40); Albumin 3.9 g/dL (3.2-4.8); Anion Gap 7 (5-15); Aspartate Aminotransferase 24 U/L (13-40); Bilirubin, Total 0.6 mg/dL (0.2-1.0); Blood Urea Nitrogen 13 mg/dL (9-23); Calcium 9.5 mg/dL (8.7-10.4); Carbon Dioxide 27 mmol/L (20-31); Chloride 102 mmol/L (98-107); Potassium 4.5 mmol/L (3.5-5.1); Sodium 136 mmol/L (136-145); Total Protein 5.8 g/dL (5.7-8.2)
[2024-05-11 12:01] LABS: Alkaline Phosphatase 280 U/L (46-116); Glucose 124 mg/dL (74-106)
--- NOTE | 2024-05-11 13:03 | DVHPN2 ---
Progress Note - Dictate Date Seen: May 10, 2024 Medical Necessity Reason Pt with a Central, PICC or Fol: Yes The following are medically ne: Kumar Catheter Reason for kumar catheter: Strict I&O Subjective PT WITH RECENT FALL HIP FRACTURE ORIF SURGERY WAS AT [facility] DISCHARGE TO [facility] NO WORSENING HEMODYNAMIC STATUS TALKED TO SON WHO RESIDES IN [place] AT [facility] ON SEVERAL TIMES DECISION TO TRANSFER TO [facility] FOR BETTER CARE AND TO STABLIZE HEMODYNAMICALLY H HTN PAD TIA/ CVA CAD S/P PTCA STENT LAD WEAKNESS/ LETHARGY WEAKNESS vital signs Vital Sign Date Time Temp Pulse Resp B/P (MAP) Pulse Ox O2 Delivery O2 Flow Rate FiO2 05/11/24 10:37 106 108/68 05/11/24 09:00 98.4 18 94 98.4 05/11/24 08:00 Nasal Cannula* 2 28 Total Intake and Output 05/10/24 05/10/24 05/11/24 15:00 23:00 07:00 Intake Total 1750 ml 600 ml Output Total 900 ml 1700 ml Balance 850 ml -1100 ml medications Current Medications Medications Dose Ordered Sig/Andre Route Start Time Stop Time Status Last Admin Dose Admin Sodium Chloride 10 ml Q8HR IV 05/05/24 22:00 05/11/24 06:30 10 ML Ondansetron HCl 4 mg Q4HP PRN IV 05/05/24 21:45 Acetaminophen 650 mg Q6HP PRN PO 05/05/24 21:45 Morphine Sulfate 2 mg Q4HPRN PRN IV 05/05/24 21:45 Nitroglycerin 0.4 mg Q5MINP PRN SL 05/05/24 21:45 05/06/24 19:05 0.4 MG Morphine Sulfate 2 mg Q30M PRN IV 05/05/24 21:45 Docusate Sodium 100 mg BID PO 05/06/24 10:00 05/11/24 10:36 100 MG Ceftriaxone Sodium 50 ml @ 100 mls/hr DAILY@1800 IV 05/06/24 18:00 05/10/24 17:57 100 MLS/HR Lactulose 15 ml DAILY PO 05/06/24 10:00 05/11/24 10:35 15 ML Metoprolol Succinate 25 mg DAILY PO 05/07/24 10:00 05/11/24 10:37 25 MG Atorvastatin Calcium 20 mg HS PO 05/06/24 22:00 05/10/24 21:57 20 MG Allopurinol 300 mg DAILY PO 05/07/24 10:00 05/11/24 10:37 300 MG Tamsulosin HCl 0.4 mg QPM PO 05/06/24 18:00 05/10/24 17:57 0.4 MG Finasteride 5 mg DAILY PO 05/07/24 10:00 05/11/24 10:37 5 MG Gabapentin 300 mg BID PO 05/06/24 22:00 05/11/24 10:36 300 MG Enteral Nutritional Formula 240 ml BIDWM PO 05/06/24 18:00 05/11/24 08:00 240 ML Pantoprazole Sodium 40 mg DAILY@0600 PO 05/12/24 06:00 laboratory and microbiology Laboratory Tests 05/11/24 11:06 Test 05/11/24 11:06 Range/Units Serum Glucose 124 H 74-106 mg/dL Problem List RECENT FALL HIP FRACTURE ORIF SURGERY WAS AT [facility] DISCHARGE TO [facility] NO WORSENING HEMODYNAMIC STATUS TALKED TO SON WHO RESIDES IN [place] AT [facility] ON SEVERAL TIMES DECISION TO TRANSFER TO [facility] FOR BETTER CARE AND TO STABLIZE HEMODYNAMICALLY PMH HTN PAD TIA/ CVA CAD S/P PTCA STENT LAD WEAKNESS/ LETHARGY WEAKNESS CT OF ABD PELVIS PNEUMONIA CALCULI IMPACTED STOOL/ FECAL RETENTION UMBILICAL HERNIA SMALL HIATAL HERNIA Assessment/Plan IVF CHECK ABG PHYSICAL THERAPY LAXATIVE ABX NUTRITIONAL SUPPORT ALERT NOW PT AGGRESSIVE TRANSFER TO [facility] Dietary Evaluation Review Comments: Instructed provided for ppreenting constipation, encouraged high fiber diet, fluid, physical acitive if medically feasbile. Avoid pain meds if does not need it. May use Ensure High Protein PO 240ml BID if desired. Expected Outcomes/Goals: Gradual weight gain. regular BMs. Plan discussed with: Patient, Spouse MOOKIE ROBINS MD May 11, 2024 13:03
--- NOTE | 2024-05-11 13:07 | DVHPN2 ---
Progress Note - Dictate Date Seen: May 11, 2024 Medical Necessity Reason Pt with a Central, PICC or Fol: Yes The following are medically ne: Kumar Catheter Reason for kumar catheter: Strict I&O Subjective PT WITH RECENT FALL HIP FRACTURE ORIF SURGERY WAS AT [facility] DISCHARGE TO [facility] NO WORSENING HEMODYNAMIC STATUS TALKED TO SON WHO RESIDES IN [place] AT [facility] ON SEVERAL TIMES DECISION TO TRANSFER TO PENDING SALE TO [facility] FOR BETTER CARE AND TO STABLIZE HEMODYNAMICALLY H HTN PAD TIA/ CVA CAD S/P PTCA STENT LAD WEAKNESS/ LETHARGY WEAKNESS vital signs Vital Sign Date Time Temp Pulse Resp B/P (MAP) Pulse Ox O2 Delivery O2 Flow Rate FiO2 05/11/24 10:37 106 108/68 05/11/24 09:00 98.4 18 94 98.4 05/11/24 08:00 Nasal Cannula* 2 28 Total Intake and Output 05/10/24 05/10/24 05/11/24 15:00 23:00 07:00 Intake Total 1750 ml 600 ml Output Total 900 ml 1700 ml Balance 850 ml -1100 ml medications Current Medications Medications Dose Ordered Sig/Andre Route Start Time Stop Time Status Last Admin Dose Admin Sodium Chloride 10 ml Q8HR IV 05/05/24 22:00 05/11/24 06:30 10 ML Ondansetron HCl 4 mg Q4HP PRN IV 05/05/24 21:45 Acetaminophen 650 mg Q6HP PRN PO 05/05/24 21:45 Morphine Sulfate 2 mg Q4HPRN PRN IV 05/05/24 21:45 Nitroglycerin 0.4 mg Q5MINP PRN SL 05/05/24 21:45 05/06/24 19:05 0.4 MG Morphine Sulfate 2 mg Q30M PRN IV 05/05/24 21:45 Docusate Sodium 100 mg BID PO 05/06/24 10:00 05/11/24 10:36 100 MG Ceftriaxone Sodium 50 ml @ 100 mls/hr DAILY@1800 IV 05/06/24 18:00 05/10/24 17:57 100 MLS/HR Lactulose 15 ml DAILY PO 05/06/24 10:00 05/11/24 10:35 15 ML Metoprolol Succinate 25 mg DAILY PO 05/07/24 10:00 05/11/24 10:37 25 MG Atorvastatin Calcium 20 mg HS PO 05/06/24 22:00 05/10/24 21:57 20 MG Allopurinol 300 mg DAILY PO 05/07/24 10:00 05/11/24 10:37 300 MG Tamsulosin HCl 0.4 mg QPM PO 05/06/24 18:00 05/10/24 17:57 0.4 MG Finasteride 5 mg DAILY PO 05/07/24 10:00 05/11/24 10:37 5 MG Gabapentin 300 mg BID PO 05/06/24 22:00 05/11/24 10:36 300 MG Enteral Nutritional Formula 240 ml BIDWM PO 05/06/24 18:00 05/11/24 08:00 240 ML Pantoprazole Sodium 40 mg DAILY@0600 PO 05/12/24 06:00 laboratory and microbiology Laboratory Tests 05/11/24 11:06 Test 05/11/24 11:06 Range/Units Serum Glucose 124 H 74-106 mg/dL Problem List RECENT FALL HIP FRACTURE ORIF SURGERY WAS AT [facility] DISCHARGE TO [facility] NO WORSENING HEMODYNAMIC STATUS TALKED TO SON WHO RESIDES IN [place] AT [facility] ON SEVERAL TIMES DECISION TO TRANSFER TO PENDING SALE TO [facility] FOR BETTER CARE AND TO STABLIZE HEMODYNAMICALLY PMH HTN PAD TIA/ CVA CAD S/P PTCA STENT LAD WEAKNESS/ LETHARGY WEAKNESS CT OF ABD PELVIS PNEUMONIA CALCULI IMPACTED STOOL/ FECAL RETENTION UMBILICAL HERNIA SMALL HIATAL HERNIA Assessment/Plan IVF CHECK ABG PHYSICAL THERAPY LAXATIVE ABX NUTRITIONAL SUPPORT ALERT NOW PT AGGRESSIVE TRANSFER TO [employer] paper work for [employer] done may transfer Dietary Evaluation Review Comments: Instructed provided for ppreenting constipation, encouraged high fiber diet, fluid, physical acitive if medically feasbile. Avoid pain meds if does not need it. May use Ensure High Protein PO 240ml BID if desired. Expected Outcomes/Goals: Gradual weight gain. regular BMs. Plan discussed with: Patient, Spouse MOOKIE ROBINS MD May 11, 2024 13:07
[2024-05-11] MEDS: guaiFENesin-DM 100/10mg/5ml SYR PO PRN (17:31)
[2024-05-12 01:00] VITALS: BP 114/64; PULSE 89; RESP 20; TEMP 98.8; O2SAT 94
[2024-05-12 05:21] VITALS: BP 119/70; PULSE 92; RESP 20; TEMP 98.9; O2SAT 98
[2024-05-12] MEDS: PANTOPRAZOLE 40 MG TAB PO SCH (05:51)
[2024-05-12 09:00] VITALS: BP 124/74; PULSE 91; RESP 18; TEMP 98; O2SAT 96
--- NOTE | 2024-05-12 10:39 | DVHPN2 ---
Progress Note Date Seen: May 12, 2024 Medical Necessity Reason Pt with a Central, PICC or Fol: Yes The following are medically ne: Kumar Catheter Reason for kumar catheter: Strict I&O Subjective Patient reports: No new complaints Review of Systems: HEENT:Normal, CVS:Normal, RESPIRATORY:Normal, GI:Normal, :Normal, MSK:Normal, NEURO:Normal Objective vital signs Vital Sign Date Time Temp Pulse Resp B/P (MAP) Pulse Ox O2 Delivery O2 Flow Rate FiO2 05/12/24 09:38 91 124/74 05/12/24 09:00 98.0 18 96 98.0 05/12/24 08:00 Nasal Cannula* 2 28 Total Intake and Output 05/11/24 05/11/24 05/12/24 15:00 23:00 07:00 Intake Total 790 ml 518 ml Output Total 1000 ml 850 ml Balance -210 ml -332 ml medications Current Medications Medications Dose Ordered Sig/Andre Route Start Time Stop Time Status Last Admin Dose Admin Sodium Chloride 10 ml Q8HR IV 05/05/24 22:00 05/12/24 05:51 10 ML Ondansetron HCl 4 mg Q4HP PRN IV 05/05/24 21:45 Acetaminophen 650 mg Q6HP PRN PO 05/05/24 21:45 Morphine Sulfate 2 mg Q4HPRN PRN IV 05/05/24 21:45 Nitroglycerin 0.4 mg Q5MINP PRN SL 05/05/24 21:45 05/06/24 19:05 0.4 MG Morphine Sulfate 2 mg Q30M PRN IV 05/05/24 21:45 Docusate Sodium 100 mg BID PO 05/06/24 10:00 05/12/24 09:38 100 MG Ceftriaxone Sodium 50 ml @ 100 mls/hr DAILY@1800 IV 05/06/24 18:00 05/11/24 17:31 100 MLS/HR Lactulose 15 ml DAILY PO 05/06/24 10:00 05/12/24 09:44 15 ML Metoprolol Succinate 25 mg DAILY PO 05/07/24 10:00 05/12/24 09:38 25 MG Atorvastatin Calcium 20 mg HS PO 05/06/24 22:00 05/11/24 21:00 20 MG Allopurinol 300 mg DAILY PO 05/07/24 10:00 05/12/24 09:39 300 MG Tamsulosin HCl 0.4 mg QPM PO 05/06/24 18:00 05/11/24 17:31 0.4 MG Finasteride 5 mg DAILY PO 05/07/24 10:00 05/12/24 09:38 5 MG Gabapentin 300 mg BID PO 05/06/24 22:00 05/12/24 09:39 300 MG Enteral Nutritional Formula 240 ml BIDWM PO 05/06/24 18:00 05/12/24 08:14 240 ML Pantoprazole Sodium 40 mg DAILY@0600 PO 05/12/24 06:00 05/12/24 05:51 40 MG Guaifenesin/ Dextromethorphan 10 ml Q6HPRN PRN PO 05/11/24 15:45 05/11/24 17:31 10 ML Examination: GENERAL:Normal, HEENT:Normal, NECK:Normal, LUNGS:Normal, CVS:Normal, ABDOMEN:Normal, MSK:Normal, SKIN:Normal, NEURO:Normal, :Normal laboratory and microbiology Laboratory Tests 05/11/24 11:06 Test 05/11/24 11:06 Range/Units Serum Glucose 124 H 74-106 mg/dL Microbiology Date/Time Source Procedure Growth Status 05/06/24 17:55 Nose MRSA Screen - Final Complete 05/06/24 14:40 Urine - Kumar Port Urine Culture - Final Complete Problem List/Assessment/Plan Problem List/Assessment/Plan #1 ?pneumonia: iv antibiotics, chest xray #2 uti: iv rocephin #3 cad #4 s/p right hip fracture: pt #5 htn #6 bph: kumar replaced, hematuria- improved, resume plavix #7 hyperlipidemia #8 a fib #9 gerd #10 gout advance care planning- full code- time spent 18 mins Plan discussed with: Patient, Spouse My Orders My Orders Orders - TABATHA GALLAGHER MD Procedure Category Date Status Time Guaifenesin-Dextromet PHA 05/11/24 In Process Liquid (Robitussin 15:45 Chest Portable XY 05/12/24 Logged 10:34 Clopidogrel Bisulfate PHA 05/13/24 Verified (Plavix) 10:00 Furosemide Injection PHA 05/12/24 Verified (Lasix Injection) 10:45 Basic Metabolic Panel LAB 05/13/24 Verified 06:00 Dietary Evaluation Review Comments: Instructed provided for ppreenting constipation, encouraged high fiber diet, fluid, physical acitive if medically feasbile. Avoid pain meds if does not need it. May use Ensure High Protein PO 240ml BID if desired. Expected Outcomes/Goals: Gradual weight gain. regular BMs. Date of Service: May 12, 2024 Billing Provider: TABATHA GALLAGHER MD Common Visit Codes: [id number] INP/OBS CARE(HIGH) TABATHA GALLAGHER MD May 12, 2024 10:39
--- NOTE | 2024-05-12 12:13 | DVH ---
INDICATION: pneumonia TECHNIQUE: Single frontal view of the chest was obtained COMPARISON: XY CHEST PORTABLE on DOS: 05/07/24, XY CHEST PORTABLE on DOS: 05/05/24, XY CHEST PORTABLE on DOS: 05/05/23, XY CHEST PORTABLE on DOS: 06/25/22, XY CHEST PORTABLE on DOS: 06/23/22, XY CHEST PORTABLE on DOS: 05/07/24 FINDINGS: Lines and Tubes: None Lungs: Subsegmental atelectasis in the right midlung. Medial right basilar airspace disease. Pleura: No effusion. No pneumothorax. Cardiomediastinal contours: Unremarkable Bones: No acute osseous abnormality. IMPRESSION: 1. Medial right basilar airspace disease which may reflect pneumonia in the appropriate clinical sett ing.
[2024-05-12] MEDS: FUROSEMIDE 20 MG/2 ML VIAL IV ONE (12:16)
--- NOTE | 2024-05-12 12:23 | DVHPN2 ---
Progress Note - Dictate Date Seen: May 12, 2024 Medical Necessity Reason Pt with a Central, PICC or Fol: Yes The following are medically ne: Kumar Catheter Reason for kumar catheter: Strict I&O Subjective PT WITH RECENT FALL HIP FRACTURE ORIF SURGERY WAS AT [facility] DISCHARGE TO [facility] NO WORSENING HEMODYNAMIC STATUS TALKED TO SON WHO RESIDES IN [place] AT [facility] ON SEVERAL TIMES DECISION TO TRANSFER TO [facility] FOR BETTER CARE AND TO STABLIZE HEMODYNAMICALLY H HTN PAD TIA/ CVA CAD S/P PTCA STENT LAD WEAKNESS/ LETHARGY WEAKNESS vital signs Vital Sign Date Time Temp Pulse Resp B/P (MAP) Pulse Ox O2 Delivery O2 Flow Rate FiO2 05/12/24 12:16 131/77 05/12/24 09:38 91 05/12/24 09:00 98.0 18 96 98.0 05/12/24 08:00 Nasal Cannula* 2 28 Total Intake and Output 05/11/24 05/11/24 05/12/24 15:00 23:00 07:00 Intake Total 790 ml 518 ml Output Total 1000 ml 850 ml Balance -210 ml -332 ml medications Current Medications Medications Dose Ordered Sig/Andre Route Start Time Stop Time Status Last Admin Dose Admin Sodium Chloride 10 ml Q8HR IV 05/05/24 22:00 05/12/24 05:51 10 ML Ondansetron HCl 4 mg Q4HP PRN IV 05/05/24 21:45 Acetaminophen 650 mg Q6HP PRN PO 05/05/24 21:45 Nitroglycerin 0.4 mg Q5MINP PRN SL 05/05/24 21:45 05/06/24 19:05 0.4 MG Morphine Sulfate 2 mg Q30M PRN IV 05/05/24 21:45 Docusate Sodium 100 mg BID PO 05/06/24 10:00 05/12/24 09:38 100 MG Ceftriaxone Sodium 50 ml @ 100 mls/hr DAILY@1800 IV 05/06/24 18:00 05/11/24 17:31 100 MLS/HR Lactulose 15 ml DAILY PO 05/06/24 10:00 05/12/24 09:44 15 ML Metoprolol Succinate 25 mg DAILY PO 05/07/24 10:00 05/12/24 09:38 25 MG Atorvastatin Calcium 20 mg HS PO 05/06/24 22:00 05/11/24 21:00 20 MG Allopurinol 300 mg DAILY PO 05/07/24 10:00 05/12/24 09:39 300 MG Tamsulosin HCl 0.4 mg QPM PO 05/06/24 18:00 05/11/24 17:31 0.4 MG Finasteride 5 mg DAILY PO 05/07/24 10:00 05/12/24 09:38 5 MG Gabapentin 300 mg BID PO 05/06/24 22:00 05/12/24 09:39 300 MG Enteral Nutritional Formula 240 ml BIDWM PO 05/06/24 18:00 05/12/24 08:14 240 ML Pantoprazole Sodium 40 mg DAILY@0600 PO 05/12/24 06:00 05/12/24 05:51 40 MG Guaifenesin/ Dextromethorphan 10 ml Q6HPRN PRN PO 05/11/24 15:45 05/11/24 17:31 10 ML Clopidogrel Bisulfate 75 mg DAILY PO 05/13/24 10:00 laboratory and microbiology Laboratory Tests 05/11/24 11:06 Test 05/11/24 11:06 Range/Units Serum Glucose 124 H 74-106 mg/dL Problem List RECENT FALL HIP FRACTURE ORIF SURGERY WAS AT [facility] DISCHARGE TO [facility] NO WORSENING HEMODYNAMIC STATUS TALKED TO SON WHO RESIDES IN [place] AT [facility] ON SEVERAL TIMES DECISION TO TRANSFER TO [facility] FOR BETTER CARE AND TO STABLIZE HEMODYNAMICALLY PMH HTN PAD TIA/ CVA CAD S/P PTCA STENT LAD WEAKNESS/ LETHARGY WEAKNESS CT OF ABD PELVIS PNEUMONIA CALCULI IMPACTED STOOL/ FECAL RETENTION UMBILICAL HERNIA SMALL HIATAL HERNIA Assessment/Plan IVF CHECK ABG PHYSICAL THERAPY LAXATIVE ABX NUTRITIONAL SUPPORT ALERT NOW PT AGGRESSIVE TRANSFER TO [employer] paper work for [employer] done may transfer CHEST X RAY STILL WILL RIGHT BASILAR INFILTRATE BUT STABLE PT NEEDS TO BE AGGRESSIVE Dietary Evaluation Review Comments: Instructed provided for ppreenting constipation, encouraged high fiber diet, fluid, physical acitive if medically feasbile. Avoid pain meds if does not need it. May use Ensure High Protein PO 240ml BID if desired. Expected Outcomes/Goals: Gradual weight gain. regular BMs. Plan discussed with: Patient MOOKIE ROBINS MD May 12, 2024 12:22
[2024-05-12 12:41] LABS: Base Excess 3.5 mmol/L (-2.0-3.0)
[2024-05-12 12:58] VITALS: BP 131/77; PULSE 79; RESP 18; TEMP 98.4; O2SAT 94
[2024-05-12 17:00] VITALS: BP 122/67; PULSE 86; RESP 18; TEMP 98; O2SAT 94
[2024-05-12 21:00] VITALS: BP 118/69; PULSE 86; RESP 17; TEMP 98.3; O2SAT 95
[2024-05-13 01:00] VITALS: BP 109/62; PULSE 80; RESP 17; TEMP 98.6; O2SAT 100
[2024-05-13 05:00] VITALS: BP 110/68; PULSE 82; RESP 16; TEMP 98.2; O2SAT 99
[2024-05-13 07:25] LABS: Anion Gap 8 (5-15); Carbon Dioxide 30 mmol/L (20-31); Chloride 99 mmol/L (98-107); Potassium 4.6 mmol/L (3.5-5.1); Sodium 137 mmol/L (136-145)
[2024-05-13 07:27] LABS: Calcium 9.5 mg/dL (8.7-10.4)
[2024-05-13 07:31] LABS: BUN/Creatinine Ratio 22.1 (10.0-20.0); Blood Urea Nitrogen 17 mg/dL (9-23)
[2024-05-13 07:34] LABS: Glucose 112 mg/dL (74-106)
[2024-05-13 08:00] VITALS: PULSE 81; RESP 17
[2024-05-13 08:51] VITALS: BP 108/63; PULSE 81; RESP 17; TEMP 98.3; O2SAT 97
[2024-05-13] MEDS: FUROSEMIDE 20 MG/2 ML VIAL IV SCH (10:26)
[2024-05-13] MEDS: CLOPIDOGREL BISULFATE 75 MG TAB PO SCH (10:27)
--- NOTE | 2024-05-13 10:43 | DVHPN2 ---
Progress Note Date Seen: May 13, 2024 Medical Necessity Reason Pt with a Central, PICC or Fol: Yes The following are medically ne: Kumar Catheter Reason for kumar catheter: Strict I&O Subjective Patient reports: No new complaints Review of Systems: HEENT:Normal, CVS:Normal, RESPIRATORY:Normal, GI:Normal, :Normal, MSK:Normal, NEURO:Normal Objective vital signs Vital Sign Date Time Temp Pulse Resp B/P (MAP) Pulse Ox O2 Delivery O2 Flow Rate FiO2 05/13/24 10:27 81 108/63 05/13/24 08:51 98.3 17 97 98.3 05/12/24 20:00 Nasal Cannula* 2 28 Total Intake and Output 05/12/24 05/12/24 05/13/24 15:00 23:00 07:00 Intake Total 690 ml 550 ml Output Total 1225 ml 950 ml Balance -535 ml -400 ml medications Current Medications Medications Dose Ordered Sig/Andre Route Start Time Stop Time Status Last Admin Dose Admin Sodium Chloride 10 ml Q8HR IV 05/05/24 22:00 05/13/24 06:50 10 ML Ondansetron HCl 4 mg Q4HP PRN IV 05/05/24 21:45 Acetaminophen 650 mg Q6HP PRN PO 05/05/24 21:45 Nitroglycerin 0.4 mg Q5MINP PRN SL 05/05/24 21:45 05/06/24 19:05 0.4 MG Morphine Sulfate 2 mg Q30M PRN IV 05/05/24 21:45 Docusate Sodium 100 mg BID PO 05/06/24 10:00 05/13/24 10:27 100 MG Ceftriaxone Sodium 50 ml @ 100 mls/hr DAILY@1800 IV 05/06/24 18:00 05/12/24 17:35 100 MLS/HR Lactulose 15 ml DAILY PO 05/06/24 10:00 05/13/24 10:25 15 ML Metoprolol Succinate 25 mg DAILY PO 05/07/24 10:00 05/13/24 10:27 25 MG Atorvastatin Calcium 20 mg HS PO 05/06/24 22:00 05/12/24 21:53 20 MG Allopurinol 300 mg DAILY PO 05/07/24 10:00 05/13/24 10:27 300 MG Tamsulosin HCl 0.4 mg QPM PO 05/06/24 18:00 05/12/24 17:35 0.4 MG Finasteride 5 mg DAILY PO 05/07/24 10:00 05/13/24 10:26 5 MG Gabapentin 300 mg BID PO 05/06/24 22:00 05/13/24 10:27 300 MG Enteral Nutritional Formula 240 ml BIDWM PO 05/06/24 18:00 05/13/24 10:25 240 ML Pantoprazole Sodium 40 mg DAILY@0600 PO 05/12/24 06:00 05/13/24 06:49 40 MG Guaifenesin/ Dextromethorphan 10 ml Q6HPRN PRN PO 05/11/24 15:45 05/11/24 17:31 10 ML Clopidogrel Bisulfate 75 mg DAILY PO 05/13/24 10:00 05/13/24 10:27 75 MG Furosemide 20 mg DAILY IV 05/13/24 10:00 05/13/24 10:26 20 MG Examination: GENERAL:Normal, HEENT:Normal, NECK:Normal, LUNGS:Normal, LUNGS:Abnormal (on oxygen), CVS:Normal, ABDOMEN:Normal, MSK:Normal, SKIN:Normal, NEURO:Normal, :Normal laboratory and microbiology Laboratory Tests 05/13/24 05:47 05/11/24 11:06 Test 05/13/24 05:47 Range/Units Serum Glucose 112 H 74-106 mg/dL Microbiology Date/Time Source Procedure Growth Status 05/06/24 17:55 Nose MRSA Screen - Final Complete 05/06/24 14:40 Urine - Kumar Port Urine Culture - Final Complete Problem List/Assessment/Plan Problem List/Assessment/Plan #1 ?pneumonia: iv antibiotics, chest xray #2 uti: iv rocephin #3 cad #4 s/p right hip fracture: pt #5 htn #6 bph: kumar replaced, hematuria- improved, resume plavix #7 hyperlipidemia #8 a fib #9 gerd #10 gout dc plan to home today advance care planning- full code- time spent 18 mins Plan discussed with: Patient My Orders My Orders Orders - TABATHA GALLAGHER MD Procedure Category Date Status Time Furosemide Injection PHA 05/13/24 In Process (Lasix Injection) 10:00 Discharge DISCHARGE 05/13/24 Verified 10:41 Dietary Evaluation Review Comments: Instructed provided for ppreenting constipation, encouraged high fiber diet, fluid, physical acitive if medically feasbile. Avoid pain meds if does not need it. May use Ensure High Protein PO 240ml BID if desired. Expected Outcomes/Goals: Gradual weight gain. regular BMs. Date of Service: May 13, 2024 Billing Provider: TABATHA GALLAGHER MD Common Visit Codes: [id number] INP/OBS CARE(HIGH) TABATHA GALLAGHER MD May 13, 2024 10:43
[2024-05-13 12:20] VITALS: BP 112/72; PULSE 79; RESP 18; TEMP 98.2; O2SAT 95
[2024-05-13 12:26] VITALS: BP 124/61; PULSE 79; RESP 17; TEMP 98.2; O2SAT 91
--- NOTE | 2024-05-14 15:07 | DVHPN2 ---
Progress Note - Dictate Date Seen: May 13, 2024 Medical Necessity Reason Pt with a Central, PICC or Fol: Yes The following are medically ne: Kumar Catheter Reason for kumar catheter: Strict I&O Subjective PT WITH RECENT FALL HIP FRACTURE ORIF SURGERY WAS AT [facility] DISCHARGE TO [facility] NO WORSENING HEMODYNAMIC STATUS TALKED TO SON WHO RESIDES IN [place] AT [facility] ON SEVERAL TIMES DECISION TO TRANSFER TO [facility] FOR BETTER CARE AND TO STABLIZE HEMODYNAMICALLY PMH HTN PAD TIA/ CVA CAD S/P PTCA STENT LAD WEAKNESS/ LETHARGY WEAKNESS vital signs Vital Sign Date Time Temp Pulse Resp B/P (MAP) Pulse Ox O2 Delivery O2 Flow Rate FiO2 05/13/24 12:26 98.2 79 17 91 05/13/24 12:20 112/72 (85) 05/13/24 08:00 Nasal Cannula* 2 28 laboratory and microbiology Laboratory Tests 05/13/24 05:47 05/11/24 11:06 Test 05/13/24 05:47 Range/Units Serum Glucose 112 H 74-106 mg/dL Problem List RECENT FALL HIP FRACTURE ORIF SURGERY WAS AT [facility] DISCHARGE TO [facility] NO WORSENING HEMODYNAMIC STATUS TALKED TO SON WHO RESIDES IN [place] AT [facility] ON SEVERAL TIMES DECISION TO TRANSFER TO [facility] FOR BETTER CARE AND TO STABLIZE HEMODYNAMICALLY PMH HTN PAD TIA/ CVA CAD S/P PTCA STENT LAD WEAKNESS/ LETHARGY WEAKNESS CT OF ABD PELVIS PNEUMONIA CALCULI IMPACTED STOOL/ FECAL RETENTION UMBILICAL HERNIA SMALL HIATAL HERNIA Assessment/Plan IVF CHECK ABG PHYSICAL THERAPY LAXATIVE ABX NUTRITIONAL SUPPORT ALERT NOW PT AGGRESSIVE TRANSFER TO [employer] paper work for [facility] done may transfer CHEST X RAY STILL WILL RIGHT BASILAR INFILTRATE BUT STABLE PT NEEDS TO BE AGGRESSIVE Dietary Evaluation Review Comments: Instructed provided for ppreenting constipation, encouraged high fiber diet, fluid, physical acitive if medically feasbile. Avoid pain meds if does not need it. May use Ensure High Protein PO 240ml BID if desired. Expected Outcomes/Goals: Gradual weight gain. regular BMs. Plan discussed with: Patient, Son MOOKIE ROBINS MD May 14, 2024 15:07
== END 2024-05-13 13:40 | disposition home health service (06) | DRG 177 ==
LOC: ER 14:32 → EDUNIT# 14:32 → EDBD 14:32 → OVERFLOW 21:40 → CENTRAL 05-06 03:10
PROVIDERS: ADMIT Internal Medicine; ATTEND Internal Medicine
DX: J15.69 Pneumonia due to other Gram-negative bacteria (principal); J96.00 Acute respiratory failure, unspecified whether with hypoxia or hypercapnia; N39.0 Urinary tract infection, site not specified; K56.41 Fecal impaction; J15.9 Unspecified bacterial pneumonia; N20.0 Calculus of kidney; I48.91 Unspecified atrial fibrillation; M10.9 Gout, unspecified; N40.0 Benign prostatic hyperplasia without lower urinary tract symptoms; I25.10 Atherosclerotic heart disease of native coronary artery without angina pectoris; K21.9 Gastro-esophageal reflux disease without esophagitis; E78.5 Hyperlipidemia, unspecified; I10 Essential (primary) hypertension; Z86.73 Personal history of transient ischemic attack (TIA), and cerebral infarction without residual deficits; Z98.61 Coronary angioplasty status; Z79.899 Other long term (current) drug therapy; Z79.891 Long term (current) use of opiate analgesic; Z79.02 Long term (current) use of antithrombotics/antiplatelets; Z82.3 Family history of stroke
CPT/HCPCS: 36415; 36600; 71045; 74176; 80048; 80053; 80307; 80320; 81001; 82140; 82805; 83036; 83605; 83735; 83880; 84443; 84484; 85025; 85610; 85730; 87081; 87086; 87426; 87804; 93005; 93306; 96365; 96375; 97110; 97116; 97163; 97530; G0378; J2470